=== PATIENT | female | born 1995 | race Caucasian/White ===

== ENCOUNTER → 2016-12-26 | Outpatient (CLI) | payer OTHER | END | disposition home or self-care (01) | LOC: C.LABSPEC 17:51 | PROVIDERS: ATTEND Family Medicine | DX: R39.15 Urgency of urination (principal) ==

== ENCOUNTER → 2017-06-06 | Outpatient (CLI) | payer OTHER ==
--- NOTE | 2017-06-14 06:19 | CODING QUERY NO DIAGNOSIS ---
TREATMENT RENDERED WITHOUT A DIAGNOSIS To promote full compliance with coding requirements relating to patient care, physician participation is requested in all cases of remote coders uncertainty. Please assist us with providing a diagnosis/symptom for the test(s) below: A diagnosis/symptom was not documented on your Order. A valid diagnosis/symptom is required to bill all insurances. Please remember that we are unable to code a diagnosis of rule out, probable, possible, questionable, or suspected. Tests that require a diagnosis: DOS 06/06 * Urine Culture DIAGNOSIS: Provider Signature: Date: Thank you Linsey Harrison Health Information Management Once completed, please kindly fax back to [phone] For questions please call [phone]
== END | disposition home or self-care (01) ==
LOC: C.LABSPEC 13:33
PROVIDERS: ATTEND Family Medicine
DX: Z01.89 Encounter for other specified special examinations (principal)

== ENCOUNTER → 2017-06-11 | Outpatient (CLI) | payer OTHER ==
[2017-06-11 14:26] LABS: BASO % 0.4 %; BASO ABS # 0.02 K/uL (0-0.2); COMPLETE YES; EOS % 1.8 %; HEMATOCRIT 40.9 % (37-47); IG% 0.2 %; LYMPH % 46.1 %; LYMPH ABS # 2.55 K/uL (1.2-3.4); MEAN CELL VOLUME 86.3 fL (80-100); MEAN CORPUSCULAR HEMOGLOBIN 28.5 pg (25-34); MEAN PLATELET VOLUME 10.6 fL (7.4-10.4); MONO % 4.7 %; NEUT % 46.8 %; PLATELET COUNT 220 K/uL (130-400); RED BLOOD COUNT 4.74 M/uL (4.2-5.4); WHITE BLOOD COUNT 5.53 K/uL (4.8-10.8)
[2017-06-11 14:32] LABS: ALT/SGPT 27 U/L (12-78); BLOOD UREA NITROGEN 8 mg/dl (7-18); BUN/CREATININE RATIO 10.8 (10-20); CALCIUM 8.6 mg/dl (8.5-10.1); CARBON DIOXIDE 28 mmol/L (21-32); CHLORIDE 110 mmol/L (98-107); CHOLESTEROL 118 mg/dl (0-200); CHOLESTEROL/HDL RATIO 2.3; CREATININE 0.72 mg/dl (0.60-1.20); GLUCOSE 100 mg/dl (70-99); HDL CHOLESTEROL 52 mg/dl; POTASSIUM 3.8 mmol/L (3.5-5.1); SODIUM 143 mmol/L (136-145)
[2017-06-11 14:35] LABS: ALB/GLOB RATIO 1.4 (0.9-2); ALKALINE PHOSPHATASE 54 U/L (45-117); AST/SGOT 16 U/L (15-37); LDL CHOLESTEROL CALCULATED 56 mg/dl; TRIGLYCERIDES 48 mg/dl (0-150); VERY LOW DENSITY LIPOPROT CALC 10 mg/dl
== END | disposition home or self-care (01) ==
LOC: C.LABSPEC 13:20
PROVIDERS: ATTEND Family Medicine
DX: Z00.00 Encounter for general adult medical examination without abnormal findings (principal)

== ENCOUNTER 2023-08-21 09:50 | Inpatient (IN) ==
[2023-08-21] MEDS ORDERED: OXYTOCIN 30 UNITS/NSS 30 UNITS/500 ML BAG IV PRN (10:40)
[2023-08-21] MEDS ORDERED: LIDOCAINE 1% LOCAL 20 ML VIAL INFIL PRN (10:40)
--- NOTE | 2023-08-21 10:51 | History & Physical Report ---
Date of Service August 21, 2023 History of Present Illness Chief Complaint: high blood pressure Primary Care Provider: Bogdan Erwin MD 28 F [id number] at 38.5 weeks presents to L&D with high blood pressure and prote inuria in the office. GBS is negative. 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 Beliefs That Will Affect Care: None marital status: Single Current Living Situation: Significant Other current occupational status: employed Feels Safe at Home: Yes Safety Concerns: Feels Safe At This Time Assistive Devices: None 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 Review of Systems All systems reviewed & are unremarkable except as noted in HPI & below Physical Exam Constitutional: WD/WN, vitals as above Eyes: PERRL, conjunctivae normal, anicteric sclerae Respiratory: normal respiratory effort, lungs clear to auscultation Cardiovascular: RRR, no murmur, no edema Gastrointestinal (Abdomen): Inspection/Auscultation: abdomen normal to inspection Musculoskeletal: Extremities: extremities normal to inspection Skin: no rashes, warm and dry Neurologic: patellar DTR's 2+ bilat, sensation intact Psychiatric: A+Ox3, euthymic affect Genitourinary: no vaginal lesions, no adnexal mass OB Exam Abdomen: + fundal height and + vertex Manual OB Exam: + cervical dilation fingertip, + cervical effacement 50% and + station high OB Exam Monitor Tracing: + external FHT monitor used, + external uterine monitor used, + category I and + normal FHT variability Cervix posterior/firm Will start Cervidil for cervical ripening Results & Data Vital Signs (Past 12 Hours) Vital Signs Temp Pulse Resp BP 08/21/23 10:12 86 128/83 08/21/23 10:12 36.9 C 18 Code Status & VTE Plan VTE Prophylaxis Plan VTE Prophylaxis will be ordered: No
[2023-08-21 11:01] LABS: Hematocrit (blood only) 34.8 % (37.0-47.0); Hemoglobin 11.5 g/dl (12.0-16.0); Mean Corpuscular Volume 84.9 fL (80.0-100.0); Mean Platelet Volume 12.2 fL (9.4-12.4); Platelet Count 159 K/uL (130-400); RDW Coefficient of Variation 16.1 % (11.5-14.5); RDW Standard Deviation 49.3 fL (36.4-46.3); White Blood Count 6.55 K/ul (4.8-10.8)
[2023-08-21 11:21] LABS: Albumin Globulin Ratio 1.2 (0.9-2); Albumin Level 3.1 gm/dl (3.4-5.0); BUN Creatinine Ratio 12.9 (10-20); Bilirubin,Total 0.2 mg/dl (0.2-1.0); Calcium 8.6 mg/dl (8.6-10.3); Est GFR (African American) 135.7 ml/min; Est GFR (Non-African American) 117.1 ml/min; Globulin 2.5 gm/dl (2.5-4.0); Potassium 4.1 mmol/L (3.5-5.1); Total Protein 5.6 gm/dl (6.0-8.3); Uric Acid 7.3 mg/dl (2.6-7.2)
[2023-08-21 11:48] LABS: Creatinine Urine Random 195.4 mg/dl; Protein Creatinine Ratio Urine 3.9 (0-0.2); Total Protein Urine Random 756.2 mg/dl (0-11.9)
[2023-08-21] MEDS ORDERED: DINOPROSTONE 10 MG INSERT PV ONE (11:52)
--- OUTSIDE RECORDS SUMMARY | 2023-08-21 13:03 | External Medical Summary | Summary of Care ---
Author Name Unknown Organization [facility] Address [address] [place] [address] Phone [phone] Care Team Providers Care Chief Investigator Name Role Phone Unavailable Primary Care Provider Unavailabl e Reason for Visit * Reason Comments Return Visit Encounter Details Date Type Department Care Team (Latest Contact Info) Description 08/20/2023 11:30 AM EST Office Visit Gynecology[facility]stetri [facility] [address] [place] [address] Kirstie Aden PA-C [address] [place] [id number] Supervision of high risk in third trimester*; Pyelectasis of fetus on ultrasound; History of loop electrosurgical excision procedure (LEEP) of cervix affecting , antepartum; Family history of seizure disorder; STD (sexually transmitted disease) complicating , antepartum; History of molar ; Elevated BP without diagnosis of hypertension Allergies Active Allergy Reactions Criticality Noted Date Comments Amoxicillin Rash 04/22/2008 Amoxil documented as of this encounter (statuses as of 08/20/2023) Medications Medication Sig Dispensed Refills Start Date End Date Status Breast PumpIndications:Breas t feeding status of mother Double electric pump, ANDREW 08/30/23, Z39.1 1 Each 0 08/15/2023 Active documented as of this encounter (statuses as of 08/20/2023) Active Problems Problem Noted Date Diagnosed Date Pyelectasis of fetus on ultrasound 03/2023 Last Assessment & Plan: Left UTD persists. Please notify pediatrics at delivery. , supervision, high-risk 02/01/2023 History of loop electrosurgi louie excision procedure (LEEP) of cervix affecting , antepartum 01/31/2023 Overview: LEEP done 2019 Last Assessment & Plan: 1. Discussed that the history of a single Loop Electrosurgical Excision Procedure has NOT been shown to be associated with increased risk for incompetent cervix or delivery. We do NOT recommend baseline transvaginal cervical length measurements for patients with this history. Family history of seizure disorder 01/31/2023 Overview: Patient reports FOB has epilepsy, as does his brother Genetics referral: patient and partner accept and referral placed NIPT: OB provider to order Last Assessment & Plan: Low risk NIPT and msAFP appreciated. STD (sexually transmitted di sease) complicating , antepartum 01/31/2023 Overview: Positive for chlamydia and gonorrhea at first Ob visit 01/15/2023 Patient treated 01/16/2023 Neg GARRETT 02/15/23; neg at 36 wks Last Assessment & Plan: Partner has not yet been treated Uninsured Partner referred to Family Planning for free STD testing and treatment History of molar 01/16/2023 Overview: Hx molar , didn't follow hcg to zero. Became during surveillance' Send placenta at time of delivery Last Assessment & Plan: No evidence of co-existing molar gestation at this time. Reviewed with patient that surveillance for gestational trophoblastic disease is not possible during using B-hcg, so will need follow-up . Migraine variant 02/22/2021 Depression with anxiety 07/01/2020 Estimated Date of Delivery Comme nts Yes 08/30/2023 Based on last me nstrual period of 11/23/2022 (Exact Date) documented as of this encounter (statuses as of 08/20/2023) Resolved Problems Problem Noted Date Diagnosed Date Resolved Date Blighted ovum 07/16/2022 05/10/2023 IUD check up 04/13/2017 07/01/2020 Adolescent Acne 01/03/2008 07/01/2020 documented as of this encounter (statuses as of 08/20/2023) Immunizations Name Administration Dates Next Due TDAP (age 10 and older)(Boostrix) 06/15/2023, documented as of this encounter Social History Tobacco Use Types Packs/Day Years Used Date Smoking Tobacco: Never Smokeless Tobacco: Never Alcohol Use Standard Drinks/Week Comments Not Currently 0 (1 standard drink = 0.6 oz pur e alcohol) occasional PHQ-2 Answer Date Recorded PHQ Adult Total Score 0 07/10/2022 Hunger Vital Sign Answer Date Recorded Within the past 12 months, y ou worried that your food would run out before you got the money to buy more. Never true 01/16/20 Within the past 12 months, t he food you bought just didn't last and you didn't have money to get more. Never true 01/15/2023 [place] Depression Scale Answer Date Recorded [place] Depression Scale Total 3 07/27/2023 The thought of harming myself has occurred to me . Never 07/27/2023 Estimated Date of Delivery Comme nts Yes 08/30/2023 Based on last me nstrual period of 11/23/2022 (Exact Date) Sex and Gender Information Value Date Recorded Sex Assigned at Female 07/01/2021 1:43 PM EDT Gender Identity Female 07/01/2021 1:43 PM EDT Sexual Orientation Straight 07/01/2021 1: 43 PM EDT Job Start Date Occupation Industry Not on file Not on file Not on file documented as of this encounter Last Filed Vital Signs Vital Sign Reading Time Taken Comments Blood Pressure 136/80 08/20/2023 11:34 AM EST Pulse - - Temperature - - Respiratory Rate - - Oxygen Saturation - - Inhaled Oxygen Concentration - - Weight 62.7 kg (138 lb 3.2 oz) 08/20/2023 11:25 AM EST Height 152.4 cm (5') 08/20/2023 11:25 AM EST Body Mass Index 26.99 08/20/2023 11:25 AM EST documented in this encounter Progress Notes * Kirstie Aden PA-C - 08/20/2023 11:36 AM EST 38w4d Denies concerns. Denies bleeding, contractions, lof. Baby is active. Ultrasound completed for position check -- confirmed cephalic. BP elevated with initial check 140/80, improved with repeat 136/80. First elevation in . Pt denies h/a, RUQ pain, cp, SOB, epigastric pain. 3+ proteins by site dip. PEC labs ordered. Pre-eclampsia precautions reviewed: any headache not relieved by Tylenol or rest, RUQ pain, epigastric pain, chest pain, SOB or vision changes need to go to hospital. RTC in 1 day JUAN/BP. If second elevation will rule in for GHTN and need delivery. Kirstie Aden PA-C * Sneha Hearn LPN - 08/20/2023 11:33 AM EST 38w4d Pt denies any concerns. documented in this encounter Plan of Treatment Upcoming Encounters Date Type Department Care Team (Late st Contact Info) Description 08/20/2023 12:30 PM EST Laboratory [facility], [facility] [address] [place] [phone] SevillaKulwant munoz [facility] [address] [place] [address] Arrived 08/21/2023 9:15 AM EST Office Visit Gynecology/Obstetrics [facility] [address] [place] [address] Clary Us CRNP [address] [place] [address] 08/28/2023 1:30 PM EST Office Visit Gynecology/Obstetrics Dae Sevilla [address] [place] [address] Clary Us CRNP [address] [place] [address] Pending Results Name Type Priority Associated Diagnoses Date /Time US PREG LIMITED 1 OR MORE FETUSES Medical Imaging Routine Supervision of high risk in third trimester 08/20/2023 11:59 AM EST PROTEIN/ CREATININE RATIO, URINE Lab Routine Supervision of high risk in third trimester Elevated BP without diagnosis of hypertension 08/20/2023 11:56 AM EST COMPREHENSIVE METABOLIC PANEL Lab Routine Supervision of high risk in third trimester Elevated BP without diagnosis of hypertension 08/20/2023 12:03 PM EST Scheduled Orders Name Type Priority Associated Diagnoses Orde r Schedule US PREG LIMITED 1 OR MORE FETUSES Medical Imaging Routine Supervision of high risk in third trimester Expected: 08/20/2023, Expires: 09/19/2024 Health Maintenance Due Date Last Done Comments Hepatitis B (1 of 3 - 3-dose series) 1994 COVID-19 Vaccine (#1) 1994 Influenza Vaccine (FLU shot) (#1) 2023 Depression Screening 07/10/2023 07/10/2022 Pap Smear 01/15/2026 01/15/2023, 12/31, 06/19/2019, Additional history exists DTaP,Tdap,and Td Vaccines (3 - Td or Tdap) 06/15/2033 06/15/2023, 05/26/2019 GARDASIL-HPV IMMUNIZATION SERIES Aged Out No longer eligible based on patient's age to complete this topic MENINGOCOCCAL (MENACTRA/MENVEO) Aged Out No longer eligible based on patient's age to complete this topic Pneumococcal Vaccine: Pediatrics (0 to 5 Years) and At-Risk Patients (6 to 64 Years) Aged Out No longer eligible based on patient's age to complete this topic documented as of this encounter Medical Devices Not on filedocumented as of this encounter Procedures Procedure Name Priority Date/Time Associated Diagnosis Comments CBC Routine 08/20/2023 12:03 PM EST Supervision of high risk in third trimester Elevated BP without diagnosis of hypertension URINALYSIS, POINT OF CARE (ENTER/EDIT) Routine 08/20/2023 Elevated BP without diagnosis of hypertension documented in this encounter Results * CBC (08/20/2023 12:03 PM EST) WBC 7.59 4.00 - 10.80 K/uL 08/20/2023 12:17 PM EST [facility] RBC 4.44 3.85 - 5.15 M/uL 08/20/2023 12:17 PM EST [facility] HGB 12.3 12.0 - 15.3 g/dL 08/20/2023 12:17 PM EST [facility] HCT 38.1 36.0 - 45.2 % 08/20/2023 12:17 PM EST [facility] MCV 85.8 81.5 - 97.5 fL 08/20/2023 12:17 PM EST [facility] MCH 27.7 27.0 - 34.0 pg 08/20/2023 12:17 PM EST [facility] MCHC 32.3 32.0 - 36.0 g/dL 08/20/2023 12:17 PM EST [facility] RDW 16.2 11.5 - 15.5 % 08/20/2023 12:17 PM EST [facility] PLT 165 140 - 400 K/uL 08/20/2023 12:17 PM EST [facility] MPV 12.1 6.6 - 11.1 fL 08/20/2023 12:17 PM EST [facility] Blood Venous blood specimen / Unknown Venipuncture / Unknown 08/20/2023 12:03 PM EST 08/20/2023 12:03 PM EST Kirstie Aden PA-C LAB BLOOD ORDERABLES [facility] [address] [facility] [place] [address] * URINALYSIS, POINT OF CARE (ENTER/EDIT) (08/20/2023) Color, Urine Yellow Yellow or Light Yellow Clarity, Urine Clear Clear Glucose, Urine Negative Negative mg/dL Bilirubin, Urine Negative Negative Ketone, Urine Negative Negative mg/dL Specific [place], Urine 1.030 1.003 - 1.030 Blood, Urine Trace-intact Negative pH, Urine 6.0 5.0 - 7.5 units Protein, Urine >=300 Negative mg/dL Urobilinogen, Urine 0.2 0.2 - 1.0 mg/dL Nitrite, Urine Negative Negative Esterase, Urine Negative Negative Urine 08/20/2023 Kirstie Aden PA-C LAB POINT OF CARE [facility] ENTER/EDIT ORDERABLES documented in this encounter Visit Diagnoses Diagnosis Supervision of high risk in third trimester- Primary Unspecified high-risk Pyelectasis of fetus on ultrasound Abnormal findings on screening History of loop electrosurgical excision procedure (LEEP) of cervix affecting , antepartum Family history of seizure disorder Family history of other neurological diseases STD (sexually transmitted disease) complicating , antepartum Other antepartum maternal venereal disease History of molar Elevated BP without diagnosis of hypertension documented in this encounter Advance Directives Latest Code Status on File Code Status Date Activated Date Inactivated Comments Full Code 07/18/2022 11:53 AM 07/18/2022 5:18 PM Th is order reflects the patients wishes and were consensually agreed upon. Question Answer Comments Discussion of Advance Directives occurred with: Patient
--- OUTSIDE RECORDS SUMMARY | 2023-08-21 13:03 | External Medical Summary ---
Author Name Unknown Address Unknown Organization [id number] [place] [address] Laboratory Report Ordering Provider Test Date Status AMARA TRIPP 08/20/2023 12:03:20 Final Observation Date Value Abnormality Reference (Units ) Status WBC, Total 08/20/2023 12:03:20 7.59 4.00-10.8 0 (K/uL) Final RBC 08/20/2023 12:03:20 4.44 3.85-5.15 (M/uL) Final Hemoglobin 08/20/2023 12:03:20 12.3 12.0-15.3 (g/dL) Final HCT 08/20/2023 12:03:20 38.1 36.0-45.2 (%) Final MCV 08/20/2023 12:03:20 85.8 81.5-97.5 (fL) Final MCH 08/20/2023 12:03:20 27.7 27.0-34.0 (pg) Final MCHC 08/20/2023 12:03:20 32.3 32.0-36.0 (g/dL) Final RDW 08/20/2023 12:03:20 16.2 11.5-15.5 (%) Final Platelets 08/20/2023 12:03:20 165 140-400 (K /uL) Final MPV 08/20/2023 12:03:20 12.1 6.6-11.1 ( fL) Final Performing Location [facility] - [address] [place] [address]
--- OUTSIDE RECORDS SUMMARY | 2023-08-21 13:03 | External Medical Summary ---
Author Name Unknown Address Unknown Organization [id number] - [address] [place] [address] Laboratory Report Ordering Provider Test Date Status AMARA TRIPP 08/20/2023 12:03:20 Final Observation Date Value Abnormality Reference (Units ) Status BUN 08/20/2023 12:03:20 12 6-20 (mg/dL) Final Creatinine 08/20/2023 12:03:20 0.9 0.5-1.0 (mg/dL) Final Glomerular filtration rate/1.73 sq M.predicted [Volume Rate/Area] in Serum, Plasma or Blood by Creatinine-based formula (CKD-EPI) 08/20/2023 12:03:20 90 >=60 (mL/min) Final eGFR is calculated based on the CKD-EPI 2020 equation SODIUM 08/20/2023 12:03:20 138 135-146 (m mol/L) Final Potassium 08/20/2023 12:03:20 4.7 3.5-5.1 (m mol/L) Final Cl 08/20/2023 12:03:20 104 98-107 (mm ol/L) Final CO2 08/20/2023 12:03:20 23 22-32 (mmo l/L) Final Anion gap 08/20/2023 12:03:20 11 7-15 (mmol /L) Final Glucose 08/20/2023 12:03:20 80 70-120 (mg /dL) Final Albumin 08/20/2023 12:03:20 3.5 Below low normal 3.8 -5.0 (g/dL) Final AST (Aspartate aminotransferase) 08/20/2023 12:03:20 25 10-35 (U/L) Fin al Alk Phos 08/20/2023 12:03:20 208 Above high normal 35 -130 (U/L) Final Bilirubin, Total 08/20/2023 12:03:20 0.2 <=1 .2 (mg/dL) Final Calcium 08/20/2023 12:03:20 9.3 8.4-10.2 ( mg/dL) Final Protein 08/20/2023 12:03:20 5.9 Below low normal 6.0 -8.3 (g/dL) Final ALT (Alanine aminotransferase) 08/20/2023 12:03:20 17 10-35 (U/L) [place] Performing Location [facility] [facility] [address]
--- OUTSIDE RECORDS SUMMARY | 2023-08-21 13:04 | External Medical Summary | Summary of Care ---
Author Name Unknown Organization [facility] Address [address] [facility] [place] [address] Phone [phone] Care Team Providers Care Therapist'S Assistant Name Role Phone Unavailable Primary Care Provider Unavailabl e Reason for Visit * Reason Comments Return Visit Encounter Details Date Type Department Care Team Description 06/15/2023 Office Visit Gynecology/Obstetric alexander Sevilla [address] [place] [address] Brie Teresa CRNP [address] [place] [address] Supervision of high risk in third trimester*; Pyelectasis of fetus on ultrasound; History of loop electrosurgical excision procedure (LEEP) of cervix affecting , antepartum; Family history of seizure disorder; STD (sexually transmitted disease) complicating , antepartum; History of molar ; Need for prophylactic vaccination with combined bpoxfjizcc-jbddmzi-uyhpr ssis (DTP) vaccine Allergies Active Allergy Reactions Severity Noted Date Comments Amoxicillin Rash 04/22/2008 Amoxil documented as of this encounter (statuses as of 06/15/2023) Medications Medication Sig Dispensed Refills Start Date End Date Status Flintstones Complete 10 MG Oral Tablet Chewable Take by mouth. 0 06/15/2023 Discontinued(M edication List Clean Up) documented as of this encounter (statuses as of 06/15/2023) Active Problems Problem Noted Date Pyelectasis of fetus on ultraso und 04/05/2023 Last Assessment & Plan: CONSIDERATIONS: Reviewed that urinary tract dilation is found in approximately 1% of pregnancies and for the woman who is under 35 years of age at the time of delivery, this may be considered a normal variant of and is not associated with an increased risk for aneuploidy. urinary tract dilation can be physiologic 50 to 70 percent of the time. The other common causes of urinary tract dilation are some type of urinary obstruction (10-30%) and bladder reflux (10-40%). Of note, Rosita had chronic UTI with reflux as a child. RECOMMENDATIONS: We recommend follow up Maternal Medicine ultrasound at 32-36 weeks gestation. We recommend alerting the graphic manager providing care of this finding if it persists. , supervision, high-risk 2022 History of loop electrosurgi louie excision procedure [...] this history. Family history of seizure disorder 01/31 Overview: Patient reports FOB has epilepsy, as does his brother Genetics referral: patient and partner accept and referral placed NIPT: OB provider to order Last Assessment & Plan: Low risk NIPT and msAFP appreciated. STD (sexually transmitted disease) compl icating , antepartum 01/31/2023 Overview: Positive for chlamydia and gonorrhea at first Ob visit 01/15/2023 Patient treated 01/16/2023 Advised partner needs to be treated Abstain from intercourse until after partner is treated. Neg GARRETT 02/15/23; repeat in 3rd trimester Last Assessment & Plan: Partner has not [...] as of this encounter (statuses as of 06/15/2023) Resolved Problems Problem Noted Date Resolved Date Blighted ovum 07/16/2022 05/10/2023 IUD check up 04/13/2017 07/01/2020 Adolescent Acne 01/03/2008 07/01/2020 documented as of this encounter (statuses as of 06/15/2023) Immunizations Name Administration Dates Next Due TDAP (age 10 and older)(Boostrix) 06/15/2023, documented as of this encounter Social History Tobacco Use Types Packs/Day Years Used Date Smoking Tobacco: Never Smokeless Tobacco: Never Alcohol Use Standard Drinks/Week Comments Not Currently 0 (1 standard drink = 0.6 oz pur e alcohol) occasional Food Insecurity Answer Date Recorded Within the past 12 months, y ou worried that your food would run out before you got money to buy more. Never true 01/15/2023 Within the past 12 months, t he food you bought just didn't last and you didn't have money to get more. Never true 01/15/2023 Estimated Date of Delivery Comme nts Yes 08/30/2023 Based on last me nstrual period of 11/23/2022 (Exact Date) Sex Assigned at Date Recorded Female 07/01/2021 1:43 PM E DT Job Start Date Occupation Industry Not on file Not on file Not on file documented as of this encounter Last Filed Vital Signs Vital Sign Reading Time Taken Comments Blood Pressure 100/62 06/15/2023 9:46 AM EDT Pulse - - Temperature - - Respiratory Rate - - Oxygen Saturation - - Inhaled Oxygen Concentration - - Weight 57.2 kg (126 lb) 06/15/2023 9:46 AM EDT Height 152.4 cm (5') 06/15/2023 9:46 AM EDT Body Mass Index 24.61 06/15/2023 9:46 AM EDT documented in this encounter Progress Notes * MC Hall - 06/15/2023 10:01 AM EDT Having BH ctx - knows she is not drinking enough water, has trouble doing so at work due to her boss. She has given him a letter with work restrictions and . Advised that it is the law to accommodate workers. Pt told to call office if ctx persist despite hydration, rest, Tylenol. Denies bleeding, leaking. + movement. Reviewed [facility], call if <10 in 2 hrs during active periods. Discussed CBE classes. Accepts Tdap; recommended and declined flu shot. Not currently taking PNV, declines prescription. Aware that taking them is recommended. 2 week return MC Elizodno * Rebekah Marie LPN - 06/15/2023 9:48 AM EDT 29w1d Getting more dagmar pereira Boss won't let her to take breaks or keep water close working 10 hrs documented in this encounter Nursing Notes * Rebekah Marie LPN - 06/15/2023 10:10 AM EDT Patient here for tap injection. Patient doing well no complaints. Injection given IM as ordered. Patient tolerated well. Patient to follow up as directed. Patient instructed to call if any complications. Patient verbalized understanding of instructions given and her follow up appt for 2 weeks Injection site: Left Deltoid Medication Source: Dispensed stock medication documented in this encounter Plan of Treatment Upcoming Encounters Date Type Specialty Care Team Description 06/28/2023 Office Visit Gynecology Obstetrics Clray Us CRNP [address] [place] [address] 06/28/2023 Imaging Radiology 07/12/2023 Office Visit Gynecology Obstetrics Clary Us CRNP [address] [place] [address] Health Maintenance Due Date Last Done Comments Hepatitis B (1 of 3 - 3-dose series) 1994 COVID-19 Vaccine (#1) 1994 Influenza Vaccine (FLU shot) (#1) 2023 Depression Screening 07/10/2023 07/10/2022 Pap Smear 01/15/2026 01/15/2023, 12/31, 06/19/2019, Additional history exists DTaP,Tdap,and Td Vaccines (3 - Td or Tdap) 06/15/2033 06/15/2023, 05/26/2019 Hepatitis C Screening Completed 01/15/2023 , 01/15/2023, 01/15/2023, Additional history exists GARDASIL-HPV IMMUNIZATION SERIES Aged Out No longer [...] Not on filedocumented as of this encounter Visit Diagnoses Diagnosis Supervision of high risk in third trimester- Primary Unspecified high-risk Pyelectasis of fetus on ultrasound Abnormal findings on screening History of loop electrosurgical excision procedure (LEEP) of cervix affecting , antepartum Family history of seizure disorder Family history of other neurological diseases STD (sexually transmitted disease) complicating , antepartum Other antepartum maternal venereal disease History of molar Need for prophylactic vaccination with combined bzuvrzcfes-snzviwe-spctewpxr (DTP) vaccine documented in this encounter Advance Directives Latest Code Status on File Code Status Date Activated Date Inactivated Comments Full Code 07/18/2022 11:53 AM 07/18/2022 5:18 PM Th is order reflects the patients wishes and were consensually agreed upon. Question Answer Comments Discussion of Advance Directives occurred with: Patient
--- OUTSIDE RECORDS SUMMARY | 2023-08-21 13:04 | External Medical Summary ---
Author Name Unknown Address Unknown Organization [id number]:[facility] [place] [address] [facility] [address] Laboratory Report Ordering Provider Test Date Status KIM ELI 06/11/2023 09:50:34 Final Observation Date Value Abnormality Reference (Units ) Status Treponema pallidum Ab [Presence] in Serum by Immunoassay 06/11/2023 09:50:34 Nonreactive Nonreactive Final No serologic evidence of syp hilis. No additional testing clinicially indicated at this time. Consider repeat testing in 2-4 weeks if acute or primary syphilis is suspected. Performing Location [facility] [place] [facility] [address] [facility] [address]
--- OUTSIDE RECORDS SUMMARY | 2023-08-21 13:04 | External Medical Summary ---
Author Name Unknown Address Unknown Organization [id number]:[facility] [place] [facility] [address] [facility] [address] Laboratory Report Ordering Provider Test Date Status KIM ELI 08/02/2023 13:30:51 Final Observation Date Value Abnormality Reference (Units ) Status Streptococcus agalactiae DNA [Presence] in Specimen by RADHA with probe detection 08/02/2023 13:30:51 Negative Negative Final No Group B Streptococcus det ected by culture-enhanced PCR (amplified probe).
The collection of vaginal/rectal swab specimen combinations (FDA approved specimen type) is optimal for the detection of Group B Streptococcus. Single source collection (vaginal only or rectal only) or alternate specimen sources may lead to false negative results. Performing Location [facility] [place] [facility] [address] [facility] [address]
--- OUTSIDE RECORDS SUMMARY | 2023-08-21 13:04 | External Medical Summary ---
Author Name Unknown Address Unknown Organization [id number]:[facility] [place] - [facility] [address] [address] Laboratory Report Ordering Provider Test Date Status KIM ELI 06/11/2023 09:50:34 Final Observation Date Value Abnormality Reference (Units ) Status Creatinine 06/11/2023 09:50:34 0.6 0.5-1.0 (mg/dL) Final Glomerular filtration rate/1.73 sq M.predicted [Volume Rate/Area] in Serum, Plasma or Blood by Creatinine-based formula (CKD-EPI) 06/11/2023 09:50:34 >90 >=60 (mL/min) Final eGFR is calculated based on the CKD-EPI 2020 equation Performing Location [facility] [place] - [facility] [address] [address]
--- OUTSIDE RECORDS SUMMARY | 2023-08-21 13:04 | External Medical Summary | Summary of Care ---
Author Name Unknown Organization [facility] Address [address] [address] Phone [phone] Care Team Providers Care Auto Adjudication Specialist Name Role Phone Unavailable Primary Care Provider Unavailabl e Reason for Visit * Reason Comments Return Visit Encounter Details Date Type Department Care Team ([facility] st Contact Info) Description 08/02/2023 1:30 PM EDT Office Visit Gynecology/Obstetri Dae Sevilla [address] [place] [address] Brie Teresa CRNP [address] [place] [address] Supervision of high risk in third trimester*; Pyelectasis of fetus on ultrasound; History of loop electrosurgical excision procedure (LEEP) of cervix affecting , antepartum; Family history of seizure disorder; STD (sexually transmitted disease) complicating , antepartum; History of molar Allergies Active Allergy Reactions Criticality Noted Date Comments Amoxicillin Rash 04/22/2008 Amoxil documented as of this encounter (statuses as of 08/02/2023) Medications No known medicationsdocumented as of this encounter (statuses as of 08/02/2023) Active Problems Problem Noted Date Diagnosed Date Pyelectasis of fetus on ultrasound 03/2023 Last Assessment & Plan: CONSIDERATIONS: Reviewed that [...] 32-36 weeks gestation. We recommend alerting the aluminum siding installer providing care of this finding if it persists. , supervision, high-risk 02/01/2023 History of loop [...] as of this encounter (statuses as of 08/02/2023) Resolved Problems Problem Noted Date Diagnosed Date Resolved Date Blighted ovum 07/16/2022 05/10/2023 IUD check up 04/13/2017 07/01/2020 Adolescent Acne 01/03/2008 07/01/2020 documented as of this encounter (statuses as of 08/02/2023) Immunizations Name Administration Dates Next Due TDAP [...] money to buy more. Never true 01/16/20 23 Within the past 12 months, t he food you bought just didn't last and you didn't have money to get more. Never true 01/15/2023 [place] Depression Scale Answer Date Recorded [place] Depression Scale Total 3 07/27/2023 The thought [...] Sign Reading Time Taken Comments Blood Pressure 108/66 08/02/2023 1:21 PM EDT Pulse - - Temperature - - Respiratory Rate - - Oxygen Saturation - - Inhaled Oxygen Concentration - - Weight 62.6 kg (138 lb) 08/02/2023 1:21 PM EDT Height - - Body Mass Index 26.95 07/27/2023 11:20 AM EDT documented in this encounter Progress Notes * Brie Teresa CRNP - 08/02/2023 1:21 PM EDT 36w0d Doing well, reports good movement. No regular ctx or leaking/bleeding. GBS and repeat Gc/Ct testing today. Interested in POPs , then control patch. Has a growth scan with MFM after today's visit. Return in 1 week. Data Processing Mechanic Documentation Provider requested summer analyst. Name of summer analyst: MC Cabrera LPN * Samanta Odonnell LPN - 08/02/2023 1:19 PM EDT 36w0d Denies vaginal bleeding/rom + movement documented in this encounter Plan of Treatment Upcoming Encounters Date Type Department Care Team (Late st Contact Info) Description 08/02/2023 2:30 PM EDT Imaging Maternal Medicine Imaging, [place] [phone] 08/02/2023 2:30 PM EDT Office Visit [facility] [place] [address] Trice Ruiz, DO [address] [facility] [place] [address] 08/08/2023 11:30 AM EST Office Visit Gynecology/Obstetrics [facility] [address] [place] [address] Brie Teresa CRNP [address] [place] [address] 08/15/2023 11:30 AM EST Office Visit Gynecology/Obstetrics [facility] [address] [place] [address] Brie Teresa CRNP [address] [place] [address] 08/20/2023 11:30 AM EST Office Visit Gynecology/Obstetrics [facility] [address] [place] [address] Kirstie Aden PA-C [address] [place] [address] 08/28/2023 1:30 PM EST Office Visit Gynecology/Obstetrics [facility] [address] [place] [address] Clary Us CRNP [address] [place] [address] Pending Results Name Type Priority Associated Diagnoses Date /Time GROUP B STREP CULTURE/PCR Lab Routine Supervision of high risk in third trimester 08/02/2023 1:30 PM EDT CHLAMYDIA TRACHOMATIS AND NEISSERIA GONORRHOEAE, AMPLIFIED PROBE Lab Routine STD (sexually transmitted disease) complicating , antepartum 08/02/2023 1:30 PM EDT Health Maintenance Due Date Last Done Comments Hepatitis B (1 of 3 - 3-dose series) 1994 COVID-19 Vaccine (#1) 1994 Influenza Vaccine (FLU shot) (#1) 2023 Depression Screening 07/10/2023 07/10/2022 Pap Smear 01/15/2026 01/15/2023, 04/2 10/2020, 06/19/2019, Additional history exists DTaP,Tdap,and Td Vaccines [...] antepartum maternal venereal disease History of molar documented in this encounter Advance Directives Latest Code Status on File Code Status Date Activated Date Inactivated Comments Full Code 07/18/2022 11:53 AM 07/18/2022 5:18 PM Th is order reflects the patients wishes and were consensually agreed upon. Question Answer Comments Discussion of Advance Directives occurred with: Patient
--- OUTSIDE RECORDS SUMMARY | 2023-08-21 13:04 | External Medical Summary ---
Author Name Unknown Address Unknown Organization [id number]:LAB[facility]ATORY [facility] [place] [address] - [address] [place] [address] Laboratory Report Ordering Provider Test Date Status KIM ELI 06/11/2023 09:50:34 Final Observation Date Value Abnormality Reference (Units ) Status WBC, Total 06/11/2023 09:50:34 6.74 4.00-10.8 0 (K/uL) Final RBC 06/11/2023 09:50:34 4.14 3.85-5.15 (M/uL) Final Hemoglobin 06/11/2023 09:50:34 11.9 Below low normal 12 .0-15.3 (g/dL) Final Anemia reflex testing trigge rs on a HGB < 12.0 for Females and HGB < 13.0 for Males in accordance with the WHO Anemia Guidelines
Anemia reflex testing triggers on a HGB < 12.0 for Females and HGB < 13.0 for Males in accordance with the WHO Anemia Guidelines HCT 06/11/2023 09:50:34 35.8 Below low normal 36. 0-45.2 (%) Final MCV 06/11/2023 09:50:34 86.5 81.5-97.5 (fL) Final MCH 06/11/2023 09:50:34 28.7 27.0-34.0 (pg) Final MCHC 06/11/2023 09:50:34 33.2 32.0-36.0 (g/dL) Final RDW 06/11/2023 09:50:34 13.1 11.5-15.5 (%) Final Platelets 06/11/2023 09:50:34 189 140-400 (K /uL) Final MPV 06/11/2023 09:50:34 11.3 6.6-11.1 ( fL) Final Performing Location [facility]ORY [facility] [place] [address] - [address] [place] [address]
--- OUTSIDE RECORDS SUMMARY | 2023-08-21 13:04 | External Medical Summary | Summary of Care ---
Author Name Unknown Organization [facility] Address [address] [place] [address] Phone [phone] Care Team Providers Care Corn Cutter Name Role Phone Unavailable Primary Care Provider Unavailabl e Reason for Visit * Reason Onset Date Comments Test Results 06/27/2023 Encounter Details Date Type Department Care Team Description 06/27/2023 Telephone Gynecology/Obstetrics [facility] [address] [place] [address] Brie Teresa CRNP [address] [place] [address] Test Results Allergies Active Allergy Reactions Severity Noted Date Comments Amoxicillin Rash 04/22/2008 Amoxil documented as of this encounter (statuses as of 06/27/2023) Medications No known medicationsdocumented as of this encounter (statuses as of 06/27/2023) Active Problems Problem Noted Date Pyelectasis of [...] 32-36 weeks gestation. We recommend alerting the oil field pipeline supervisor providing care of this finding if it [...] as of this encounter (statuses as of 06/27/2023) Resolved Problems Problem Noted Date Resolved Date Blighted ovum 07/16/2022 05/10/2023 IUD check up 04/13/2017 07/01/2020 Adolescent Acne 01/03/2008 07/01/2020 documented as of this encounter (statuses as of 06/27/2023) Immunizations Name Administration Dates Next Due TDAP [...] on file documented as of this encounter Miscellaneous Notes * Telephone Encounter - Rebekah Marie LPN - 06/27/2023 9:30 AM EDT Spoke with pt she verbalized understanding * Telephone Encounter - MC Hall - 06/27/2023 9:03 AM EDT Please call pt with unread MyG: Your labs show very mild anemia (hemoglobin level should be 12 or higher, yours is 11.9). Please make sure that your vitamin contains iron. You can also increase iron in your diet with dark leafy greens, red meat, and iron-fortified cereal- Frosted Mini Wheats is one with a good amount. Your 1 hour glucose test was normal. Please contact my office if you have any questions. documented in this encounter Plan of Treatment Upcoming Encounters Date Type Specialty Care Team Description 06/28/2023 Office Visit Gynecology Obstetrics Clary Us CRNP [address] [place] [address] 06/28/2023 Imaging Radiology 07/12/2023 Office Visit Gynecology Obstetrics Clary Us CRNP [address] [place] [address] Health Maintenance Due Date Last Done Comments Hepatitis B (1 of 3 - 3-dose series) 1994 COVID-19 Vaccine (#1) 1994 Influenza Vaccine (FLU shot) (#1) 2023 Depression Screening 07/10/2023 07/10/2022 Pap Smear 01/15/2026 01/15/2023, 04/10/2020, 06/19/2019, Additional history exists DTaP,Tdap,and Td Vaccines [...] Not on filedocumented as of this encounter Advance Directives Latest Code Status on File Code Status Date Activated Date Inactivated Comments Full Code 07/18/2022 11:53 AM 07/18/2022 5:18 PM Th is order reflects the patients wishes and were consensually agreed upon. Question Answer Comments Discussion of Advance Directives occurred with: Patient
--- OUTSIDE RECORDS SUMMARY | 2023-08-21 13:04 | External Medical Summary | Summary of Care ---
Author Name Unknown Organization [facility] Address [address] [place] [address] Phone [phone] Care Team Providers Care Obiee Architect Name Role Phone Unavailable Primary Care Provider Unavailabl e Reason for Visit * Reason Comments Return Visit Encounter Details Date Type Department Care Team ([facility] st Contact Info) Description 07/27/2023 11:45 AM EDT Office Visit Gynecology/Obstetri Dae Sevilla [address] [place] [address] Brie Teresa CRNP [address] [place] [address] Supervision of high risk in third trimester*; Pyelectasis of fetus on ultrasound; History of loop electrosurgical excision procedure (LEEP) of cervix affecting , antepartum; Family history of seizure disorder; STD (sexually transmitted disease) complicating , antepartum; History of molar Allergies Active Allergy Reactions Criticality Noted Date Comments Amoxicillin Rash 04/22/2008 Amoxil documented as of this encounter (statuses as of 07/27/2023) Medications No known medicationsdocumented as of this encounter (statuses as of 07/27/2023) Active Problems Problem Noted Date Diagnosed Date [...] 32-36 weeks gestation. We recommend alerting the library supervisor providing care of this finding if [...] as of this encounter (statuses as of 07/27/2023) Resolved Problems Problem Noted Date Diagnosed Date Resolved Date Blighted ovum 07/16/2022 05/10/2023 IUD check up 04/13/2017 07/01/2020 Adolescent Acne 01/03/2008 07/01/2020 documented as of this encounter (statuses as of 07/27/2023) Immunizations Name Administration Dates Next Due TDAP [...] money to get more. Never true 01/15/2023 [place] Depression Scale Answer Date Recorded [place] Depression Scale Total 3 07/27/2023 The thought [...] Sign Reading Time Taken Comments Blood Pressure 104/62 07/27/2023 11:20 AM EDT Pulse - - Temperature - - Respiratory Rate - - Oxygen Saturation - - Inhaled Oxygen Concentration - - Weight 62 kg (136 lb 9.6 oz) 07/27/2023 11:20 AM EDT Height 152.4 cm (5') 07/27/2023 11:20 AM EDT Body Mass Index 26.68 07/27/2023 11:20 AM EDT documented in this encounter Progress Notes * Brie Teresa CRNP - 07/27/2023 11:29 AM EDT 35w1d Baby moving well. No consistent/regular ctx or bleeding. Increase in physiologic discharge, discussed. Cephalic by my hands. S<D, has an MFM growth u/s scheduled for next week. GBS next visit, 1 week return. MC Elizondo * Samanta Odonnell LPN - 07/27/2023 11:25 AM EDT 35w1d Denies vaginal bleeding/rom + movement Increased discharge Noticing some contractions- 07/19 every 10 minutes for about 2 hours nothing consistent since then. documented in this encounter Plan of Treatment Upcoming Encounters Date Type Department Care Team (Late st Contact Info) Description 08/02/2023 1:30 PM EDT Office Visit Gynecology/Obstetrics Dae Sevilla [address] [place] [address] Brie Teresa CRNP [address] [place] [address] 08/02/2023 2:30 PM EDT Imaging Maternal Medicine Karen Smart [address] [place] [id number] 08/08/2023 11:30 AM EST Office Visit Gynecology/Obstetrics [facility] [address] [place] [address] Brie Teresa CRNP [address] [place] [address] 08/15/2023 11:30 AM EST Office Visit Gynecology/Obstetrics [facility] [address] [place] [address] Brie Teresa CRNP [address] [place] [address] 08/20/2023 11:30 AM EST Office Visit Gynecology/Obstetrics [facility] [address] [place] [address] Kirstie Aden PA-C [address] [place] [address] 08/28/2023 1:30 PM EST Office Visit Gynecology/Obstetrics [facility] [address] [place] [address] Clary Us CRNP [address] [place] [address] Health Maintenance Due Date Last Done Comments [...]
--- OUTSIDE RECORDS SUMMARY | 2023-08-21 13:04 | External Medical Summary | Summary of Care ---
Author Name Unknown Organization [facility] Address [address] [place] [address] Phone [phone] Care Team Providers Care Control Chemist Name Role Phone Unavailable Primary Care Provider Unavailabl e Reason for Visit * Reason Comments Return Visit Encounter Details Date Type Department Care Team ([facility] st Contact Info) Description 08/08/2023 11:30 AM EST Office Visit Gynecology/Obstetri [facility] [address] [place] [address] BackerBrie CRNP [address] [place] [address] Supervision of high risk in third trimester*; Pyelectasis of fetus on ultrasound; History of loop electrosurgical excision procedure (LEEP) of cervix affecting , antepartum; Family history of seizure disorder; STD (sexually transmitted disease) complicating , antepartum; History of molar ; Left axillary swelling Allergies Active Allergy Reactions Criticality Noted Date Comments Amoxicillin Rash 04/22/2008 Amoxil documented as of this encounter (statuses as of 08/08/2023) Medications No known medicationsdocumented as of this encounter (statuses as of 08/08/2023) Active Problems Problem Noted Date Diagnosed Date [...] as of this encounter (statuses as of 08/08/2023) Resolved Problems Problem Noted Date Diagnosed Date Resolved Date Blighted ovum 07/16/2022 05/10/2023 IUD check up 04/13/2017 07/01/2020 Adolescent Acne 01/03/2008 07/01/2020 documented as of this encounter (statuses as of 08/08/2023) Immunizations Name Administration Dates Next Due TDAP [...] money to get more. Never true 01/15/2023 [place] Depression Scale Answer Date Recorded [place] Depression Scale Total 3 07/27/2023 The thought [...] Sign Reading Time Taken Comments Blood Pressure 110/70 08/08/2023 11:27 AM EST Pulse - - Temperature - - Respiratory Rate - - Oxygen Saturation - - Inhaled Oxygen Concentration - - Weight 63.5 kg (140 lb) 08/08/2023 11:27 AM EST Height - - Body Mass Index 27.34 07/27/2023 11:20 AM EDT documented in this encounter Progress Notes * Brie Teresa CRNP - 08/08/2023 11:26 AM EST 36w6d Growth scan with MFM completed on 08/02. Plan for post simon follow up of left UTD. No regular ctx, leaking/bleeding. Good movement. Reports swelling around L armpit x2 days, feels tender. No fevers/chills, recent vaccinations, injury. +mild edema and enlarged lymph nodes, will get imaging. 1 week return [facility] Elizondo * Samanta Odonnell LPN - 08/08/2023 11:26 AM EST 36w6d Denies vaginal bleeding/rom + movement Having some contractions- nothing consistent Noticed swollen area around armpit documented in this encounter Plan of Treatment Upcoming Encounters Date Type Department Care Team (Late st Contact Info) Description 08/10/2023 2:30 PM EST Imaging Radiology [facility] [address] [facility] [place] [address] 08/10/2023 3:00 PM EST Imaging Radiology [facility] [address] [place] [address] 08/15/2023 11:30 AM EST [facility] Pr[address]av [address] [place] [address] Brie Teresa CRNP [address] [place] [address] 08/20/2023 11:30 AM EST Office Visit Gynecology/Obstetrics [facility] Pr[address] [place] [address] Kirstie Aden PA-C [address] [place] [address] 08/28/2023 1:30 PM EST Office Visit Gynecology/Obstetrics [facility] [address] [place] [address] Clary Us CRNP [address] [place] [address] Scheduled Orders Name Type Priority Associated Diagnoses Orde r Schedule US EXTREMITY AXILLA Medical Imaging Routine Left axillary swelling Expected: 08/08/2023 (Approximate), Expires: 09/07/2024 Health Maintenance Due Date Last Done Comments Hepatitis B (1 of 3 - 3-dose series) 1994 COVID-19 Vaccine (#1) 1994 Influenza Vaccine (FLU shot) (#1) 2023 Depression Screening 07/10/2023 07/10/2022 Pap Smear 01/15/2026 01/15/2023, 0410/2020, 06/19/2019, Additional history exists DTaP,Tdap,and Td Vaccines [...] antepartum maternal venereal disease History of molar Left axillary swelling documented in this encounter Advance Directives Latest Code Status on File Code Status Date Activated Date Inactivated Comments Full Code 07/18/2022 11:53 AM 07/18/2022 5:18 PM Th is order reflects the patients wishes and were consensually agreed upon. Question Answer Comments Discussion of Advance Directives occurred with: Patient
--- OUTSIDE RECORDS SUMMARY | 2023-08-21 13:04 | External Medical Summary | Summary of Care ---
Author Name Unknown Organization [facility] Address [address] [place] [place] [address] Phone [phone] Care Team Providers Care Inside Sales Supervisor Name Role Phone Unavailable Primary Care Provider Unavailabl e Reason for Visit * Reason Comments Return Visit Encounter Details Date Type Department Care Team Description 05/10/2023 Office Visit Gynecology/Obstetric [facility] [address] [place] [address] Brie Teresa CRNP [address] [place] [address] Supervision of high risk in second trimester*; Pyelectasis of fetus on ultrasound; History of loop electrosurgical excision procedure (LEEP) of cervix affecting , antepartum; Family history of seizure disorder; STD (sexually transmitted disease) complicating , antepartum; History of molar Allergies Active Allergy Reactions Severity Noted Date Comments Amoxicillin Rash 04/22/2008 Amoxil documented as of this encounter (statuses as of 05/10/2023) Medications Medication Sig Dispensed Refills Start Date End Date Status Flintstones Complete 10 MG Oral Tablet Chewable Take by mouth. 0 Active documented as of this encounter (statuses as of 05/10/2023) Active Problems Problem Noted Date Pyelectasis of [...] 32-36 weeks gestation. We recommend alerting the utilization specialist providing care of this finding if it [...] as of this encounter (statuses as of 05/10/2023) Resolved Problems Problem Noted Date Resolved Date Blighted ovum 07/16/2022 05/10/2023 IUD check up 04/13/2017 07/01/2020 Adolescent Acne 01/03/2008 07/01/2020 documented as of this encounter (statuses as of 05/10/2023) Immunizations Name Administration Dates Next Due TDAP (age 10 and older)(Boostrix) 05/26/2019 documented as of this encounter Social History [...] Sign Reading Time Taken Comments Blood Pressure 94/56 05/10/2023 8:30 AM EDT Pulse - - Temperature - - Respiratory Rate - - Oxygen Saturation - - Inhaled Oxygen Concentration - - Weight 56.2 kg (124 lb) 05/10/2023 8:30 AM EDT Height - - Body Mass Index 24.22 03/14/2023 1:59 PM EDT documented in this encounter Progress Notes * MC Hall - 05/10/2023 8:36 AM EDT 24 wks + movement. No bleeding/leaking. When on her feet all day at work, she is having BH ctx. Theseresolve with rest and hydration. Note given to provide frequent breaks. Discussed labs & Tdap to be completed at next visit. Scheduled for [facility] u/s next month. MC Elizondo documented in this encounter Nursing Notes * Samanta Odonnell LPN - 05/10/2023 8:31 AM EDT 24w0d Denies vaginal bleeding/rom + movement Noticing some dagmar pereira- on feet all day at work- requesting note for frequent breaks. documented in this encounter Plan of Treatment Upcoming Encounters Date Type Specialty Care Team Description 06/11/2023 Laboratory Laboratory [facility] [address] [facility] [place] [address] 06/11/2023 Office Visit Gynecology Obstetrics Backelza, [facility]bell [address] [place] [address] 06/28/2023 Imaging Radiology Scheduled Orders Name Type Priority Associated Diagnoses Orde r Schedule CBC WITH WBC DIFFERENTIAL AND ANEMIA REFLEX WORKUP Lab Routine Supervision of high risk in second trimester Expected: 05/24/2023, Expires: 05/10/2024 50-G GESTATIONAL GLUCOSE, 1 HOUR Lab Routine Supervision of high risk in second trimester Expected: 05/24/2023 (Approximate), Expires: 05/10/2024 SYPHILIS ANTIBODY SCREEN WITH REFLEX TO RPR Lab Routine Supervision of high risk in second trimester Expected: 05/24/2023 (Approximate), Expires: 05/10/2024 Health Maintenance Due Date Last Done Comments Hepatitis B (1 of 3 - 3-dose series) 1994 COVID-19 Vaccine (#1) 1994 Influenza Vaccine (FLU shot) (#1) 2023 Depression Screening, Annual for Pts 12 and Over 07/10/2023 07/10/2022 Pap Smear 01/15/2026 01/15/2023, 04/2 10/2020, 06/19/2019, Additional history exists DTaP,Tdap,and Td Vaccines (2 - Td or Tdap) 05/26/2029 05/26/2019 Hepatitis C Screening Completed 01/15/2023 , [...] Diagnoses Diagnosis Supervision of high risk in second trimester- Primary Unspecified high-risk Pyelectasis of fetus [...]
--- OUTSIDE RECORDS SUMMARY | 2023-08-21 13:04 | External Medical Summary ---
Author Name Unknown Address Unknown Organization [id number]:[facility] [address] [facility] [address] Laboratory Report Ordering Provider Test Date Status KIM ELI 06/11/2023 09:50:34 Final Observation Date Value Abnormality Reference (Units ) Status SYNC LEUKOCYTES IN BLOOD BY AUTOMATED COUNT 06/11/2023 09:50:34 6.74 4.00-10.80 (K/uL) Final Segs 06/11/2023 09:50:34 76.7 Above high normal 40.0-75.0 (%) Final Lymphs % 06/11/2023 09:50:34 18.1 18.0-42.0 (%) Final Monos 06/11/2023 09:50:34 4.3 1.0-11.0 (%) Final Eosinophils 06/11/2023 09:50:34 0.6 0.0-6.0 (%) Final Basos 06/11/2023 09:50:34 0.3 0.0-2.0 (%) Final Absolute Segs 06/11/2023 09:50:34 5.17 1.80-7.70 (K/uL) Final Lymphs, absolute 06/11/2023 09:50:34 1.22 1.00-4.80 (K/ul) Final Monos, Abs 06/11/2023 09:50:34 0.29 0.00-1.10 (K/uL) Final Eos, Abs 06/11/2023 09:50:34 0.04 0.00-0.70 (K/uL) Final Basos, Abs 06/11/2023 09:50:34 0.02 0.00-0.20 (K/uL) Final Performing Location [facility] [place] [address]
--- OUTSIDE RECORDS SUMMARY | 2023-08-21 13:04 | External Medical Summary | Summary of Care ---
Author Name Unknown Organization [facility] Address [address] [place] [address] Phone [phone] Care Team Providers Care Assistant Hairstylist Name Role Phone Unavailable Primary Care Provider Unavailabl e Reason for Referral * Evaluate & Treat - Unlimited Visits (Within 10 days (routine)) - Pending Review Specialty Diagnoses / Procedures Referred By Amada gibbs Referred To Contact Maternal and Medicine Diagnoses Pyelectasis of fetus on ultrasound 31 weeks gestation of Ultrasound for screening for growth restriction Trice Ruiz DO [address] [place] [address] Referral ID Status Reason Start Date Expiration Date Visits Requested Visits Authorized [id number] Pending Review Specialty Services Required 06/28/2023 1 1 Question Answer Referral Priority Within 10 days (routine) Referral Reason mild left UTD- persistent Does the patient have a [facility] OB provider? Yes Encounter Details Date Type Department Care Team Description 06/28/2023 Office Visit Patient Support Representative Obstetrics Maternal Medicine, [facility] [address] [facility] [address] Trice Ruiz DO [address] [place], [place] [id number] Pyelectasis of fetus on ultrasound*; 31 weeks gestation of ; Ultrasound for screening for growth restriction Allergies Active Allergy Reactions Severity Noted Date Comments Amoxicillin Rash 04/22/2008 Amoxil documented as of this encounter (statuses as of 06/28/2023) Medications No known medicationsdocumented as of this encounter (statuses as of 06/28/2023) Active Problems Problem Noted Date Pyelectasis of [...] 32-36 weeks gestation. We recommend alerting the tele tech providing care of this finding if it [...] as of this encounter (statuses as of 06/28/2023) Resolved Problems Problem Noted Date Resolved Date Blighted ovum 07/16/2022 05/10/2023 IUD check up 04/13/2017 07/01/2020 Adolescent Acne 01/03/2008 07/01/2020 documented as of this encounter (statuses as of 06/28/2023) Immunizations Name Administration Dates Next Due TDAP [...] on file documented as of this encounter Progress Notes * Trice Tierney DO - 06/28/2023 4:11 PM EDT Rosita presented today at 31w0d for an ultrasound for the following indications: Pyelectasis of fetus on ultrasound 31 weeks gestation of Ultrasound for screening for growth restriction Ultrasound summary: Patient presented at 31w 0d for growth assessment. Normal growth with EFW 1626 g at 30%ile. Normal MILKA at 10.1 cm. Cephalic presentation. Persistent mild left UTD. I reviewed the ultrasound images. Rosita was given the opportunity to meet with me if she had any questions. Please refer to the ultrasound report for additional details about today's ultrasound examination. RECOMMENDATIONS: Follow up with MFM for ultrasound as clinically indicated. See prior formal MFM consultation note. Thank you for allowing us to participate in the care of this patient. Please call with any questions. Trice Ruiz DO 06/28/2023 4:12 PM documented in this encounter Plan of Treatment Upcoming Encounters Date Type Specialty Care Team Description 07/12/2023 Office Visit Gynecology Obstetrics Clary Us CRNP [address] [place] [address] 08/02/2023 Imaging Radiology Scheduled Referrals Name Type Priority Associated Diagnoses Orde r Schedule [facility] OP Referral Within 10 days (routine) Pyelectasis of fetus on ultrasound 31 weeks gestation of Ultrasound for screening for growth restriction Ordered: 06/28/2023 Health Maintenance Due Date Last Done Comments [...] as of this encounter Visit Diagnoses Diagnosis Pyelectasis of fetus on ultrasound- Primary Abnormal findings on screening 31 weeks gestation of state, incidental Ultrasound for screening for growth restriction screening for growth retardation using ultrasonics documented in this encounter Advance Directives Latest Code Status on File Code Status Date Activated Date Inactivated Comments Full Code 07/18/2022 11:53 AM 07/18/2022 5:18 PM Th is order reflects the patients wishes and were consensually agreed upon. Question Answer Comments Discussion of Advance Directives occurred with: Patient
--- OUTSIDE RECORDS SUMMARY | 2023-08-21 13:04 | External Medical Summary ---
Author Name Unknown Address Unknown Organization [id number]:[facility] [address] [place] [address] Laboratory Report Ordering Provider Test Date Status KIM ELI 08/02/2023 13:30:51 Final Observation Date Value Abnormality Reference (Units ) Status Chlamydia trachomatis rRNA [Presence] in Specimen by RADHA with probe detection 08/02/2023 13:30:51 Negative Negative Final No Chlamydia trachomatis det ected by sub assembly team worker-mediated nucleic acid amplification. Neisseria gonorrhoeae rRNA [ Presence] in Specimen by RADHA with probe detection 08/02/2023 13:30:51 Negative Negative Final No Neisseria gonorrhoeae det ected by sub assembly team worker-mediated nucleic acid amplification. Performing Location [facility] [place] [address] [place] [address]
--- OUTSIDE RECORDS SUMMARY | 2023-08-21 13:04 | External Medical Summary ---
Author Name Unknown Address Unknown Organization [id number]:[facility] [place] [facility] [address] [place] [address] Laboratory Report Ordering Provider Test Date Status AMARA TRIPP 08/20/2023 11:56:02 Final Normal: <150 mg/ g creatinine
High: 150-500 mg/g creatinine
Very High: >500 mg/g creatinine
Nephrotic: >3000 mg/g creatinine Observation Date Value Abnormality Reference (Units ) Status Protein/Creatinine [Ratio] in Urine 08/20/2023 11:56:02 1697 Above high normal <150 (mg/g ) Final Protein, Urine 08/20/2023 11:56:02 375 (mg/dL) Final Creatinine, Urine 08/20/2023 11:56:02 221 (mg/dL) Final Performing Location [facility] - [facility] [address] [place] [address]
--- OUTSIDE RECORDS SUMMARY | 2023-08-21 13:04 | External Medical Summary | Summary of Care ---
Author Name Unknown Organization [facility] Address [address] [place] [address] Phone [phone] Care Team Providers Care Hydraulic Chair Assembler Name Role Phone Unavailable Primary Care Provider Unavailabl e Encounter Details Date Type Department Care Team (Late st Contact Info) Description 08/02/2023 2:30 PM EDT Office Visit Pharmacy Operations Specialist Obstetrics Maternal Medicine, [facility] [place] [address] Trice Ruiz, DO [address] [place], [place] [phone] Pyelectasis of fetus on ultrasound*; Ultrasound for screening for growth restriction Allergies Active Allergy Reactions Criticality Noted Date Comments Amoxicillin Rash 04/22/2008 Amoxil documented as of this encounter (statuses as of 08/03/2023) Medications No known medicationsdocumented as of this encounter (statuses as of 08/03/2023) Active Problems Problem Noted Date Diagnosed Date [...] as of this encounter (statuses as of 08/03/2023) Resolved Problems Problem Noted Date Diagnosed Date Resolved Date Blighted ovum 07/16/2022 05/10/2023 IUD check up 04/13/2017 07/01/2020 Adolescent Acne 01/03/2008 07/01/2020 documented as of this encounter (statuses as of 08/03/2023) Immunizations Name Administration Dates Next Due TDAP [...] money to get more. Never true 01/15/2023 [place] Depression Scale Answer Date Recorded [place] Depression Scale Total 3 07/27/2023 The thought [...] of this encounter Progress Notes * Trice Ruiz, - 08/02/2023 4:00 PM EDT Rosita presented today at 36w0d for an ultrasound for the following indications: Pyelectasis of fetus on ultrasound Assessment & Plan: Left UTD persists. Ultrasound for screening for growth restriction Ultrasound summary: Patient presented at 36w 0d for growth assessment. Normal growth with EFW 2473 g at 18%ile. Normal MILKA at 6.9 cm. Cephalic presentation. I reviewed the ultrasound images. Rosita was [...] call with any questions. Trice Ruiz DO 08/02/2023 4:00 PM documented in this encounter Miscellaneous Notes * Assessment & Plan Note - Trice Ruiz DO - 08/02/2023 4:00 PM EDT Associated Problem(s): Pyelectasis of fetus on ultrasound Left UTD persists. Please notify pediatrics at delivery. documented in this encounter Plan of Treatment Upcoming Encounters Date Type Department Care Team (Late st Contact Info) Description 08/08/2023 11:30 AM EST Office Visit Gynecology/Obstetrics [facility] [address] [place], [place] [address] Brie Teresa CRNP [address] [place] [address] 08/15/2023 11:30 AM EST Office Visit Gynecology/Obstetrics [facility] [address] [place] [address] Brie Teresa CRNP [address] [place] [address] 08/20/2023 11:30 AM EST Office Visit Gynecology/Obstetrics [facility] [address] [place] [address] Kirstie Aden PA-C [address] [place] [address] 08/28/2023 1:30 PM EST Office Visit Gynecology/Obstetrics [facility] [address] [place] [address] Clary Us CRNP [address] [place] [address] Health Maintenance Due Date Last Done Comments [...] on ultrasound- Primary Abnormal findings on screening Ultrasound for screening for growth restriction screening [...]
--- OUTSIDE RECORDS SUMMARY | 2023-08-21 13:04 | External Medical Summary | Summary of Care ---
Author Name Unknown Organization [facility] Address [address] [place] [address] Phone [phone] Care Team Providers Care Doctor Of Audiology Name Role Phone Unavailable Primary Care Provider Unavailabl e Reason for Visit * Reason Comments Return Visit Encounter Details Date Type Department Care Team Description 06/28/2023 Office Visit Gynecology/Obstetric [facility] [address] [place] [address] Clary Us CRNP [address] [place] [address] Supervision of high risk in third trimester*; [...] 32-36 weeks gestation. We recommend alerting the software engineer intern providing care of this finding if it [...] Reading Time Taken Comments Blood Pressure 100/62 06/28/2023 8:36 AM EDT Pulse - - Temperature - - Respiratory Rate - - Oxygen Saturation - - Inhaled Oxygen Concentration - - Weight 58.4 kg (128 lb 12.8 oz) 06/28/2023 8:36 AM EDT Height 152.4 cm (5') 06/28/2023 8:36 AM EDT Body Mass Index 25.15 06/28/2023 8:36 AM EDT documented in this encounter Progress Notes * MC Rae - 06/28/2023 8:57 AM EDT 31w0d Complaints: none Feeling well. Fewer contractions than last visit, only occasional BH now. Good FM. No bleeding or LOF. MC Rae * Sneha Hearn LPN - 06/28/2023 8:41 AM EDT 31w0d Pt denies any concerns. documented in this encounter Plan of Treatment Upcoming Encounters Date Type Specialty Care Team Description 06/28/2023 Imaging Radiology 07/12/2023 Office Visit Gynecology Obstetrics Clary Us CRNP [address] [place] [address] Health Maintenance Due Date Last Done Comments [...]
--- OUTSIDE RECORDS SUMMARY | 2023-08-21 13:04 | External Medical Summary ---
Author Name Unknown Address Unknown Organization K01:[facility] [place] - [address] [place] [address] Laboratory Report Ordering Provider Test Date Status KIM ELI 06/11/2023 09:50:34 Final Observation Date Value Abnormality Reference (Units ) Status Ferritin 06/11/2023 09:50:34 12 Below low normal 13- 150 (ng/mL) Final Performing Location [facility] [place] - [address] [place] [address]
--- OUTSIDE RECORDS SUMMARY | 2023-08-21 13:04 | External Medical Summary | Summary of Care ---
Author Name Unknown Organization [facility] Address [address] [place] [address] Phone [phone] Care Team Providers Care Molder Feeder Name Role Phone Unavailable Primary Care Provider Unavailabl e Encounter Details Date Type Department Care Team (Late st Contact Info) Description 08/02/2023 2:30 PM EDT Office Visit Director Skills Obstetrics Maternal Medicine, [facility] [place] [address] Trice Ruiz, DO [address] [place], [place] [phone] Pyelectasis of fetus on ultrasound*; Ultrasound for [...] money to get more. Never true 01/15/2023 [place] Depression Scale Answer Date Recorded [place] Depression Scale Total 3 07/27/2023 The thought [...] 11:30 AM EST Office Visit Gynecology/Obstetrics [facility] [address] [place], [place] [address] Brie Teresa CRNP [address] [place] [address] 08/15/2023 11:30 AM EST Office Visit Gynecology/Obstetrics [facility] [address] [place] [address] Brie Teresa CRNP [address] [place] [address] 08/20/2023 11:30 AM EST Office Visit Gynecology/Obstetrics [facility] [address] [place] [address] Kirstie Aden PA-C [address] [place] [address] 08/28/2023 1:30 PM EST Office Visit Gynecology/Obstetrics [facility] [address] [place] [address] Clary Us CRNP [address] [place] [address] Health Maintenance Due Date Last Done Comments [...]
--- OUTSIDE RECORDS SUMMARY | 2023-08-21 13:04 | External Medical Summary | Summary of Care ---
Author Name Unknown Organization [facility] Address [address] [facility] [place] [address] Phone [phone] Care Team Providers Care Marketing Development Representative Name Role Phone Unavailable Primary Care Provider Unavailabl e Reason for Visit * Reason Comments Return Visit Encounter Details Date Type Department Care Team ([facility] st Contact Info) Description 08/15/2023 11:30 AM EST [facility] [address] [place] [address] BackBrie bertrand CRNP [address] [place] [address] Supervision of high risk in third trimester*; Pyelectasis of fetus on ultrasound; History of loop electrosurgical excision procedure (LEEP) of cervix affecting , antepartum; Family history of seizure disorder; STD (sexually transmitted disease) complicating , antepartum; History of molar ; Breast feeding status of mother Allergies Active Allergy Reactions Criticality Noted Date Comments Amoxicillin Rash 04/22/2008 Amoxil documented as of this encounter (statuses as of 08/15/2023) Medications Medication Sig Dispensed Refills Start Date End Date Status Breast PumpIndications:Breas t feeding status of mother Double electric pump, ANDREW 08/30/23, Z39.1 1 Each 0 08/15/2023 Active documented as of this encounter (statuses as of 08/15/2023) Active Problems Problem Noted Date Diagnosed Date [...] as of this encounter (statuses as of 08/15/2023) Resolved Problems Problem Noted Date Diagnosed Date Resolved Date Blighted ovum 07/16/2022 05/10/2023 IUD check up 04/13/2017 07/01/2020 Adolescent Acne 01/03/2008 07/01/2020 documented as of this encounter (statuses as of 08/15/2023) Immunizations Name Administration Dates Next Due TDAP [...] money to get more. Never true 01/15/2023 [place] Depression Scale Answer Date Recorded [place] Depression Scale Total 3 07/27/2023 The thought [...] Sign Reading Time Taken Comments Blood Pressure 122/80 08/15/2023 11:36 AM EST Pulse - - Temperature - - Respiratory Rate - - Oxygen Saturation - - Inhaled Oxygen Concentration - - Weight 63.5 kg (140 lb) 08/15/2023 11:36 AM EST Height - - Body Mass Index 27.34 07/27/2023 11:20 AM EDT documented in this encounter Progress Notes * Samanta Odonnell LPN - 08/15/2023 11:36 AM EST 37w6d Denies vaginal bleeding/rom + movement Some contractions but nothing consistent * Brie Teresa CRNP - 08/15/2023 11:35 AM EST 37w6d Some occasional ctx, nothing regular. No bleeding/leaking, baby is moving well. Having nausea this morning; no diarrhea, fevers. Ensure adequate hydration, bland diet as tolerated. Declines anti-nausea Rx; call office if worsening. Rx for breast pump provided. 1 week return MC Elizondo documented in this encounter Plan of Treatment Upcoming Encounters Date Type Department Care Team (Late st Contact Info) Description 08/20/2023 11:30 AM EST Office [facility] [address] [place] [address] Kirstie Aden PA-C [address] [place] [address] 08/28/2023 1:30 PM EST Office [facility] [address] [place] [address] Clary Us CRNP [address] [place] [address] Health Maintenance Due Date Last Done Comments [...] antepartum maternal venereal disease History of molar Breast feeding status of mother care and examination of lactating mother documented in this encounter Advance Directives Latest Code Status on File Code Status Date Activated Date Inactivated Comments Full Code 07/18/2022 11:53 AM 07/18/2022 5:18 PM Th is order reflects the patients wishes and were consensually agreed upon. Question Answer Comments Discussion of Advance Directives occurred with: Patient
--- OUTSIDE RECORDS SUMMARY | 2023-08-21 13:04 | External Medical Summary ---
Author Name Unknown Address Unknown Organization [id number]:LABORATORY [facility] [address] [place] [address] Laboratory Report Ordering Provider Test Date Status ALCIRAKIM 06/11/2023 09:50:34 Final Observation Date Value Abnormality Reference (Units ) Status Glucose [Moles/volume] in Serum or Plasma --1 hour post 50 g glucose PO 06/11/2023 09:50:34 108 70-129 (mg/dL) Final Performing Location LABORATORY [facility] [address] [place] [address]
--- OUTSIDE RECORDS SUMMARY | 2023-08-21 13:04 | External Medical Summary ---
Author Name Unknown Address Unknown Organization K01:LABORATORY [place] [address] [address] [facility] [address] Laboratory Report Ordering Provider Test Date Status KIM ELI 06/11/2023 09:50:34 Final Observation Date Value Abnormality Reference (Units ) Status Retic, % (auto) 06/11/2023 09:50:34 1.94 Above high normal 0.80-1.90 (%) Final Reticulocytes, Absolute 06/11/2023 09:50:34 80.7 31.3-100.1 (K/uL) Final Reticulocyte fraction, immature 06/11/2023 09:50:34 30.3 Above high normal 2.5-20.6 (%) Final Reticulocyte HGB 06/11/2023 09:50:34 29.9 29.7-37.4 (pg) Final Performing Location LABORATORY [facility] [address] [facility] [address]
--- OUTSIDE RECORDS SUMMARY | 2023-08-21 13:04 | External Medical Summary | Summary of Care ---
Author Name Unknown Organization [facility] Address [address] [place] [address] Phone [phone] Care Team Providers Care Acid Wash Operator Name Role Phone Unavailable Primary Care Provider Unavailabl e Reason for Visit * Reason Comments Outpatient Testing Encounter Details Date Type Department Care Team Description 06/11/2023 Laboratory Laboratory, [facility] [address] [place] [address] [facility] [address] [facility] [place] [address] Supervision of high risk in second trimester Allergies Active Allergy Reactions Severity Noted Date Comments Amoxicillin Rash 04/22/2008 Amoxil documented as of this encounter (statuses as of 06/11/2023) Medications Medication Sig Dispensed Refills Start Date End Date Status Flintstones Complete 10 MG Oral Tablet Chewable Take by mouth. 0 Active documented as of this encounter (statuses as of 06/11/2023) Active Problems Problem Noted Date Pyelectasis of [...] 32-36 weeks gestation. We recommend alerting the grades 7 8 tutor providing care of this finding if it [...] as of this encounter (statuses as of 06/11/2023) Resolved Problems Problem Noted Date Resolved Date Blighted ovum 07/16/2022 05/10/2023 IUD check up 04/13/2017 07/01/2020 Adolescent Acne 01/03/2008 07/01/2020 documented as of this encounter (statuses as of 06/11/2023) Immunizations Name Administration Dates Next Due TDAP [...] on file documented as of this encounter Plan of Treatment Upcoming Encounters Date Type Specialty Care Team Description 06/15/2023 Office Visit Gynecology Obstetrics Brie Teresa CRNP [address] [place] [address] 06/28/2023 Imaging Radiology 07/12/2023 Office Visit Gynecology Obstetrics Clary Us CRNP [address] [place] [address] Pending Results Name Type Priority Associated Diagnoses Date /Time CBC WITH WBC DIFFERENTIAL AND ANEMIA REFLEX WORKUP Lab Routine Supervision of high risk in second trimester 06/11/2023 9:50 AM EDT 50-G GESTATIONAL GLUCOSE, 1 HOUR Lab Routine Supervision of high risk in second trimester 06/11/2023 9:50 AM EDT SYPHILIS ANTIBODY SCREEN WITH REFLEX TO RPR Lab Routine Supervision of high risk in second trimester 06/11/2023 9:50 AM EDT ANEMIA CBC Lab Routine Supervision of high risk in second trimester 06/11/2023 9:50 AM EDT DIFFERENTIAL, AUTOMATED Lab Routine Supervision of high risk in second trimester 06/11/2023 9:50 AM EDT ANEMIA REFLEX CHEMISTRY HOLD Lab Routine Supervision of high risk in second trimester 06/11/2023 9:50 AM EDT SYPHILIS ANTIBODY SCREEN Lab Routine Supervision of high risk in second trimester 06/11/2023 9:50 AM EDT Health Maintenance Due Date Last Done [...] Diagnosis Supervision of high risk in second trimester Unspecified high-risk documented in this encounter Advance Directives Latest Code Status on File Code Status Date Activated Date Inactivated Comments Full Code 07/18/2022 11:53 AM 07/18/2022 5:18 PM Th is order reflects the patients wishes and were consensually agreed upon. Question Answer Comments Discussion of Advance Directives occurred with: Patient
--- OUTSIDE RECORDS SUMMARY | 2023-08-21 13:04 | External Medical Summary | Summary of Care ---
Author Name Unknown Organization [facility] Address [address] [place] [facility] [place] [address] Phone [phone] Care Team Providers Care Embedded Software Design Engineer Name Role Phone Unavailable Primary Care Provider Unavailabl e Reason for Visit * Reason Comments Return Visit Encounter Details Date Type Department Care Team Description 07/12/2023 Office Visit Gynecology/Obstetric alexander [place] [address] [place] [address] Clary Us CRNP [address] [place] [address] Supervision of high risk in third trimester*; Pyelectasis of fetus on ultrasound; History of loop electrosurgical excision procedure (LEEP) of cervix affecting , antepartum; Family history of seizure disorder; STD (sexually transmitted disease) complicating , antepartum; History of molar Allergies Active Allergy Reactions Severity Noted Date Comments Amoxicillin Rash 04/22/2008 Amoxil documented as of this encounter (statuses as of 07/12/2023) Medications No known medicationsdocumented as of this encounter (statuses as of 07/12/2023) Active Problems Problem Noted Date Pyelectasis of [...] 32-36 weeks gestation. We recommend alerting the consumer product advisor providing care of this finding if it [...] as of this encounter (statuses as of 07/12/2023) Resolved Problems Problem Noted Date Resolved Date Blighted ovum 07/16/2022 05/10/2023 IUD check up 04/13/2017 07/01/2020 Adolescent Acne 01/03/2008 07/01/2020 documented as of this encounter (statuses as of 07/12/2023) Immunizations Name Administration Dates Next Due TDAP [...] Sign Reading Time Taken Comments Blood Pressure 102/64 07/12/2023 1:25 PM EDT Pulse - - Temperature - - Respiratory Rate - - Oxygen Saturation - - Inhaled Oxygen Concentration - - Weight 60.3 kg (133 lb) 07/12/2023 1:25 PM EDT Height 152.4 cm (5') 07/12/2023 1:25 PM EDT Body Mass Index 25.97 07/12/2023 1:25 PM EDT documented in this encounter Progress Notes * MC Rae - 07/12/2023 1:47 PM EDT 33w0d Complaints: none Feeling well overall. Good FM. No contractions, bleeding, or LOF. MC Rae * Sneha Hearn LPN - 07/12/2023 1:30 PM EDT 33w0d Pt denies any concerns. Labor instructions given. documented in this encounter Plan of Treatment Upcoming Encounters Date Type Specialty Care Team Description 07/26/2023 Office Visit Gynecology Obstetrics Brie Teresa CRNP [address] [place] [address] 08/02/2023 Office Visit Gynecology Obstetrics Brie Teresa CRNP [address] [place] [address] 08/02/2023 Imaging Radiology 08/09/2023 Office Visit Gynecology Obstetrics Brie Teresa CRNP [address] [place] [address] 08/16/2023 Office Visit Gynecology Obstetrics Clary Us CRNP [address] [place] [address] 08/20/2023 Office Visit Gynecology Obstetrics Tomi Cruz, [address] [place] [address] 08/28/2023 Office Visit Gynecology Obstetrics Clary Us CRNP [address] [place] [address] Health Maintenance Due Date Last Done Comments [...]
--- OUTSIDE RECORDS SUMMARY | 2023-08-21 13:04 | External Medical Summary ---
Author Name Unknown Address Unknown Organization K01:[facility] [place] [address] [place] [address] Laboratory Report Ordering Provider Test Date Status KIM ELI 06/11/2023 09:50:34 Final Observation Date Value Abnormality Reference (Units ) Status Iron 06/11/2023 09:50:34 70 33-151 (ug/dL) Final Iron-binding capacity 06/11/2023 09:50:34 502 Above high normal 250-425 (ug/dL) Final Transferrin Sat % 06/11/2023 09:50:34 14 Below low normal 15-55 (%) Final Performing Location LAB[facility] [place] - [address] [place] [address]
--- OUTSIDE RECORDS SUMMARY | 2023-08-21 13:05 | External Medical Summary | Summary of Care ---
Author Name Unknown Organization [facility] Address [address] [facility] [place] [address] Phone [phone] Care Team Providers Care Swing Grinder Name Role Phone Unavailable Primary Care Provider Unavailabl e Reason for Visit * Reason Comments Return Visit Encounter Details Date Type Department Care Team Description 04/11/2023 Office Visit Gynecology/Obstetric alexander [place] [address] [place] [address] Brie Teresa CRNP [address] [place] [address] Supervision of high risk in second trimester*; Pyelectasis of fetus on ultrasound; History of loop electrosurgical excision procedure (LEEP) of cervix affecting , antepartum; Family history of seizure disorder; STD (sexually transmitted disease) complicating , antepartum; History of molar Allergies Active Allergy Reactions Severity Noted Date Comments Amoxicillin Rash 04/22/2008 Amoxil documented as of this encounter (statuses as of 04/11/2023) Medications Medication Sig Dispensed Refills Start Date End Date Status Flintstones Complete 10 MG Oral Tablet Chewable Take by mouth. 0 Active documented as of this encounter (statuses as of 04/11/2023) Active Problems Problem Noted Date Pyelectasis of [...] 32-36 weeks gestation. We recommend alerting the sushi chef providing care of this finding if it [...] using B-hcg, so will need follow-up . Blighted ovum 07/16/2022 Migraine variant 02/22/2021 Depression with anxiety 07/01/2020 Estimated Date of Delivery Comme nts Yes 08/30/2023 Based on last me nstrual period of 11/23/2022 (Exact Date) documented as of this encounter (statuses as of 04/11/2023) Resolved Problems Problem Noted Date Resolved Date IUD check up 04/13/2017 07/01/2020 Adolescent Acne 01/03/2008 07/01/2020 documented as of this encounter (statuses as of 04/11/2023) Immunizations Name Administration Dates Next Due TDAP [...] Reading Time Taken Comments Blood Pressure 94/56 04/11/2023 11:34 AM EDT Pulse - - Temperature - - Respiratory Rate - - Oxygen Saturation - - Inhaled Oxygen Concentration - - Weight 54 kg (119 lb) 04/11/2023 11:34 AM EDT Height - - Body Mass Index 23.24 03/14/2023 1:59 PM EDT documented in this encounter Progress Notes * MC Hall - 04/11/2023 11:34 AM EDT 19w 6d MFM ultrasound on 04/05, pyelectasis noted. Recommending follow up MFM growth scan, scheduled for June. Low risk genetic screening. Feeling baby move. Denies cramping, bleeding. 4 week return MC Elizondo documented in this encounter Nursing Notes * Samanta Odonnell LPN - 04/11/2023 11:34 AM EDT 19w6d Denies vaginal bleeding/rom + movement Anatomy with MFM documented in this encounter Plan of Treatment Upcoming Encounters Date Type Specialty Care Team Description 05/10/2023 Office Visit Gynecology Obstetrics Backel[place], MC [place] [address] [facility] [place] [address] 06/28/2023 Imaging Radiology Health Maintenance Due Date Last Done Comments Hepatitis B (1 of 3 - 3-dose series) 1995 COVID-19 Vaccine (#1) 1994 Influenza Vaccine (FLU shot) (#1) 2023 Depression Screening, Annual for Pts 12 and Over 07/10/2023 07/10/2022 Pap Smear 01/15/2026 01/15/2023, 0410/2020, [...]
--- OUTSIDE RECORDS SUMMARY | 2023-08-21 13:05 | External Medical Summary | Summary of Care ---
Author Name Unknown Organization [facility] Address [address] [place] [address] Phone [phone] Care Team Providers Care Clockmaker Name Role Phone Unavailable Primary Care Provider Unavailabl e Reason for Visit * Reason Comments Ultrasound * Evaluate & Treat - Unlimited Visits (Within 10 days (routine)) - Pending Review Specialty Diagnoses / Procedures Referred By Amada gibbs Referred To Contact Obstetrics/Gynecology / Maternal Medicine Diagnoses Chlamydia infection affecting in first trimester Gonorrhea affecting in first trimester History of loop electrosurgical excision procedure (LEEP) affecting care of mother, antepartum History of molar Kirstie Aden PA-C [address] [place] [address] Referral ID Status Reason Start Date Expiration Date Visits Requested Visits Authorized [id number] Pending Review Specialty Services Required 01/22/[phone] Encounter Details Date Type Department Care Team Description 04/05/2023 Office Visit Key Operator Obstetrics Maternal Medicine, [place] [address] [place], [place] [id number] Trice Ruiz, [address] [place] [address] Mayco [place], [place] [address] [address] History of loop electrosurgical excision procedure (LEEP) of cervix affecting , antepartum*; Encounter for anatomic survey; Family history of seizure disorder; Molar ; Pyelectasis of fetus on ultrasound Allergies Active Allergy Reactions Severity Noted Date Comments Amoxicillin Rash 04/22/2008 Amoxil documented as of this encounter (statuses as of 04/05/2023) Medications Medication Sig Dispensed Refills Start Date End Date Status Flintstones Complete 10 MG Oral Tablet Chewable Take by mouth. 0 Active documented as of this encounter (statuses as of 04/05/2023) Active Problems Problem Noted Date Pyelectasis of [...] 32-36 weeks gestation. We recommend alerting the medical hospital sales providing care of this finding if it persists. Supervision of high risk in rst trimester 02/01/2023 History of loop electrosurgi louie excision [...] from intercourse until after partner is treated. Last Assessment & Plan: Partner has not yet been treated Uninsured Partner referred to Family Planning for free STD testing and treatment Molar 01/16/2023 Overview: Hx molar , didn't follow [...] as of this encounter (statuses as of 04/05/2023) Resolved Problems Problem Noted Date Resolved Date IUD check up 04/13/2017 07/01/2020 Adolescent Acne 01/03/2008 07/01/2020 documented as of this encounter (statuses as of 04/05/2023) Immunizations Name Administration Dates Next Due TDAP [...] of this encounter Progress Notes * Trice Tierney, DO - 04/05/2023 3:20 PM EDT MATERNAL MEDICINE VISIT Rosita Stratton presented today at 19w0d for an ultrasound and follow-up of her high risk . She was seen for the following indications: Problem List Items Addressed This Visit Genitourinary History of loop electrosurgical excision procedure (LEEP) of cervix affecting , antepartum- Primary Other Molar No evidence of co-existing molar gestation at this time. Reviewed with patient that surveillance for gestational trophoblastic disease is not possible during using B-hcg, so will need follow-up . Family history of seizure disorder Low risk NIPT and msAFP appreciated. Pyelectasis of fetus on ultrasound CONSIDERATIONS: Reviewed that urinary tract dilation is [...] 32-36 weeks gestation. We recommend alerting the medical hospital sales providing care of this finding if it persists. Other Visit Diagnoses Encounter for anatomic survey We reviewed today's ultrasound findings. 19w0d for anatomical survey. Normal growth with no ultrasonic evidence of structural abnormalities. Left UTD as above. (For full details, please refer to ultrasound report provided separately). Ms. Stratton's questions were answered to her satisfaction. She was advised to contact our office or her OB provider for any additional questions regarding her . RECOMMENDATIONS: Recommend follow up ultrasound with MFM in 12 weeks for growth secondary to UTD. Thank you for allowing us to participate in the care of this patient. Please call with any questions. Trice Ruiz DO 04/05/2023 3:20 PM documented in this encounter Miscellaneous Notes * Assessment & Plan Note - Trice Tierney DO - 04/05/2023 3:19 PM EDT Associated Problem(s): Pyelectasis of fetus on ultrasound CONSIDERATIONS: Reviewed that urinary tract dilation is [...] 32-36 weeks gestation. We recommend alerting the medical hospital sales providing care of this finding if it persists. * Assessment & Plan Note - Trice Tierney DO - 04/05/2023 3:18 PM EDT Associated Problem(s): Molar No evidence of co-existing molar gestation at this time. Reviewed with patient that surveillance for gestational trophoblastic disease is not possible during using B-hcg, so will need follow-up . * Assessment & Plan Note - Trice Tierney DO - 04/05/2023 2:07 PM EDT Associated Problem(s): Family history of seizure disorder Low risk NIPT and msAFP appreciated. documented in this encounter Plan of Treatment Upcoming Encounters Date Type Specialty Care Team Description 04/11/2023 Office Visit Gynecology Obstetrics Backer, MC [place] [address] [place] [address] 06/28/2023 Imaging Radiology Scheduled Referrals Name Type Priority Associated Diagnoses Orde r Schedule MATERNAL MEDICINE REFERRAL OP Referral Within 10 days (routine) Chlamydia infection affecting in first trimester Gonorrhea affecting in first trimester History of loop electrosurgical excision procedure (LEEP) affecting care of mother, antepartum History of molar Ordered: 01/22/2023 Health Maintenance Due Date Last Done Comments Hepatitis B (1 of 3 - 3-dose series) 1994 COVID-19 Vaccine (#1) 1994 Influenza Vaccine (FLU shot) (#1) 2023 Depression Screening, Annual for Pts 12 and Over 07/10/2023 07/10/2022 Pap Smear 01/15/2026 01/15/2023, 12/31, [...] as of this encounter Visit Diagnoses Diagnosis History of loop electrosurgical excision procedure (LEEP) of cervix affecting , antepartum- Primary Encounter for anatomic survey Family history of seizure disorder Family history of other neurological diseases Molar Other abnormal products of conception Pyelectasis of fetus on ultrasound Abnormal findings on screening documented in this encounter Advance Directives Latest Code Status on File Code Status Date Activated Date Inactivated Comments Full Code 07/18/2022 11:53 AM 07/18/2022 5:18 PM Th is order reflects the patients wishes and were consensually agreed upon. Question Answer Comments Discussion of Advance Directives occurred with: Patient
--- OUTSIDE RECORDS SUMMARY | 2023-08-21 13:05 | External Medical Summary ---
Author Name Unknown Address Unknown Organization : Laboratory Report Ordering Provider Test Date Status NOE RIZVI 03/14/2023 14:21:55 Final Observation Date Value Abnormality Reference (Units ) Status INTERPRETATION 03/14/2023 14:21:55 SEE BELOW Final Screen negative for open NTD . RISK FOR ONTD 03/14/2023 14:21:55 1:4700 Final CALC'D GESTATIONAL AGE 0603/14/2023 14:21:55 15.9 Final AFP, SERUM 03/14/2023 14:21:55 52.3 (ng/mL) Final AFP MOM 03/14/2023 14:21:55 1.31 Final Reference Range:
NTD <2 .50
IDD <1.90
TWINS <4.00
TWINS IDD <3.50
TRIPLETS <4.50
The AFP test result indicates that this patient is
screen negative for open NTD. It should be noted
that normal test results can never guarantee the
of a normal baby and that 2-3% of newborns
have some type of physical or mental defect, many
of which are undetectable through any known
diagnostic technique.
This is a screening test, not a diagnostic test.
This risk assessment report is based in part on
demographic data provided by the ordering
physician. Please notify the laboratory promptly
if any data are incorrect. For assistance with
recalculations, please call your local [facility] laboratory. For assistance with
interpretation of these results, please contact
your Local [facility] genetic counselor or
call [phone] ([phone]).
Interpretive Cutoffs
Screen Positive for Open NTD:
> or = 2.50 adjusted MOM
> or = 1.90 adjusted MOM for insulin-dependent diabetics
> or = 4.00 adjusted MOM for twins
> or = 3.50 adjusted MOM for twins insulin-dependent diabetics
> or = 4.50 adjusted MOM for triplets
For additional information, please refer to
[email or web address]
(This link is being provided for
informational/educational purposes only.) DATE OF 03/14/2023 14:21:55 1995 Final COLLECTION DATE 03/14/2023 14:21:55 03/14/2023 Final MATERNAL WEIGHT 03/14/2023 14:21:55 114 (lbs ) Final EST'D DATE OF DELIVERY 03/14/2023 14:21:55 08/30/2023 Final ANDREW DETERMINED BY 03/14/2023 14:21:55 NG Final MOTHER'S ETHNIC ORIGIN 03/14/2023 14:21:55 WHITE Final NUMBER OF FETUSES 03/14/2023 14:21:55 1 Final INSULIN DEPEND DIABETIC 03/14/2023 14:21:55 NO Final REPEAT SPECIMEN 03/14/2023 14:21:55 NO Final HX OF NEURAL TUBE DEFECTS 03/14/2023 14:21:55 NO Final PREV DOWN SYND 03/14/2023 14:21:55 NO Final DONOR EGG 03/14/2023 14:21:55 NO Final DONOR AGE: EGG RETRIEVAL 03/14/2023 14:21:55 NOT GIVEN Final Test performed by [facility]
[address],
[place] [address]

Metal Ceiling Hanger: Samra Bustos MD,PHD,JOSE
Test Reported by Jacki Morejon,
[facility],
[address] [place], [place]
Fernando Brenner M.D., Ph.D., Director of Laboratories
, [facility] [id number] Performing Location
--- OUTSIDE RECORDS SUMMARY | 2023-08-21 13:05 | External Medical Summary | Summary of Care ---
Author Name Unknown Organization [facility] Address [address] [place] [address] Phone [phone] Care Team Providers Care Bakeshop Cleaner Name Role Phone Unavailable Primary Care Provider Unavailabl e Encounter Details Date Type Department Care Team Description 12/18/2022 Telephone Gynecology/Obstetrics [facility] [address] [place], [place] [id number] Maribel Ortiz MD [address] [place], [place] [id number] Allergies Active Allergy Reactions Severity Noted Date Comments Amoxicillin Rash 04/22/2008 Amoxil documented as of this encounter (statuses as of 03/23/2023) Medications No known medicationsdocumented as of this encounter (statuses as of 03/23/2023) Active Problems Problem Noted Date Supervision of high risk in fi rst trimester 02/01/2023 History of loop electrosurgi [...] referral placed NIPT: OB provider to order STD (sexually transmitted disease) compl icating , [...] surveillance' Send placenta at time of delivery Blighted ovum 07/16/2022 Migraine variant 02/22/2021 Depression with anxiety 07/01/2020 documented as of this encounter (statuses as of 03/23/2023) Resolved Problems Problem Noted Date Resolved Date IUD check up 04/13/2017 07/01/2020 Adolescent Acne 01/03/2008 07/01/2020 documented as of this encounter (statuses as of 03/23/2023) Immunizations Name Administration Dates Next Due TDAP [...] money to get more. Never true 01/15/2023 Sex Assigned at Date Recorded Female 07/01/2021 1:43 PM E DT Job Start Date Occupation Industry Not on file Not on file Not on file documented as of this encounter Miscellaneous Notes * Telephone Encounter - Johanna Woo LPN - 12/19/2022 8:37 AM EDT It is really important she understand that a rise could be a new versus gestational trophoblastic disease. Continue to get HCGs drawn weekly. And when they were high enough, will get an ultrasound Thank you Patient is aware and voiced understanding. * Telephone Encounter - Johanna Woo LPN - 12/18/2022 4:44 PM EDT Patient notified. She states she has been sexually active without using control. She had an Hcg drawn today as well and will follow up with another next week. * Telephone Encounter - Dee Dee Chinchilla RN - 12/18/2022 4:38 PM EDT [facility]quivel's pt. * Telephone Encounter - Dee Dee Chinchilla RN - 12/18/2022 4:37 PM EDT ----- Message from aMribel Ortiz MD sent at 12/18/2022 8:20 AM EDT ----- Patient's HCG is now increasing, could be a new or gestational trophoblastic disease. Hasshe been sexually active since her to surgery? Need to repeat hCG in 1 week, please express importance continued follow-up as if it is gestationaltrophoblastic disease will need to send patient to [facility] Thank you ----- Message ----- From: Gilbert Guerrero Automated Processing Sent: 12/16/2022 8:55 PM EDT To: Maribel Ortiz MD documented in this encounter Plan of Treatment Upcoming Encounters Date Type Specialty Care Team Description 04/05/2023 Office Visit Maternal Medicine Trice Ruiz, DO [address] [place] [address] Shira Drubin, MS [address] [place] [address] 04/05/2023 Imaging Radiology 04/11/2023 Office Visit Gynecology Obstetrics Backer, Brie Tejeda, MC [address] [place] [address] Health Maintenance Due Date Last Done Comments Hepatitis B (1 of 3 - 3-dose series) 1995 COVID-19 Vaccine (#1) 1995 Influenza Vaccine (FLU shot) (Season Ended) 2023 Depression Screening, Annual for Pts 12 [...]
--- OUTSIDE RECORDS SUMMARY | 2023-08-21 13:05 | External Medical Summary | Summary of Care ---
Author Name Unknown Organization [facility] Address [address] [place] [address] Phone [phone] Care Team Providers Care Abrasive Band Winder Name Role Phone Unavailable Primary Care Provider Unavailabl e Reason for Visit * Reason Comments Genetic Counseling * Evaluate & Treat - Unlimited Visits (Within 10 days (routine)) - Pending Review Specialty Diagnoses / Procedures Referred By Amada gibbs Referred To Contact Medical Genetics / Hematology Oncology Diagnoses Family history of seizure disorder Jojo Eller CRNP [address] [place] [address] Referral ID Status Reason Start Date Expiration Date Visits Requested Visits Authorized [id number] Pending Review Specialty Services Required 02/01/[phone] Encounter Details Date Type Department Care Team Description 04/05/2023 Office Visit Hse Coordinator Obstetrics Maternal Medicine, [place] [address] [address] Mayco Barnett, [place] [address] [address] Family history of seizure disorder*; Encounter for procreative genetic counseling; Supervision of high-risk , second trimester Allergies Active Allergy Reactions Severity Noted Date Comments Amoxicillin Rash 04/22/2008 Amoxil documented as of this encounter (statuses as of 04/09/2023) Medications Medication Sig Dispensed Refills Start Date End Date Status Flintsbriaes Complete 10 MG Oral Tablet Chewable Take by mouth. 0 Active documented as of this encounter (statuses as of 04/09/2023) Active Problems Problem Noted Date Pyelectasis of [...] 32-36 weeks gestation. We recommend alerting the senior portfolio manager providing care of this finding if it persists. Supervision of high risk in fi rst [...] as of this encounter (statuses as of 04/09/2023) Resolved Problems Problem Noted Date Resolved Date IUD check up 04/13/2017 07/01/2020 Adolescent Acne 01/03/2008 07/01/2020 documented as of this encounter (statuses as of 04/09/2023) Immunizations Name Administration Dates Next Due TDAP [...] as of this encounter Progress Notes * Mayco Barnett, MS - 04/09/2023 12:37 PM EDT Patient location: CLINIC. I was not in a hospital or clinic location. After connecting through televideo, patient was verified with two unique identifiers. Patient (or authorized legal sales account representative) was then informed that this was a Telemedicine visit and being conducted confidentially over secure lines. My office door was closed. No one else was in the room with me. Patient acknowledged consent and understanding of privacy and security of the Telemedicine visit, and gave permission to have atelemedicine presenter stay in the room in order to assist with the history and to conduct the examas needed. I informed the patient that I have reviewed their record in [employer] and presented the opportunity for them to ask any questions regarding the visit today. The patient agreed to participate. GENETIC COUNSELING FOR MATERNAL MEDICINE Rosita Stratton 04/05/2023 Referring provider: MC Finney Seen previously by Genetic Counseling: no REASON FOR CONSULT: Rosita Stratton is a 27 year old year old with an ANDREW of 08/30/2023, placing the patient at approximately 19 weeks 0 days gestation at the time of our consultation. The patient was unaccompanied. Rosita Stratton presents for genetic counseling today due to FOB with personal and family history of seizures. PARTNER'S INFORMATION: Partner's name is Cruz Morel : 04/16/1995 (FOB#2). Partner does have 4-year-old son from prior relationship. CURRENT GENETIC LABS: - NIPT: low risk OB HISTORY: OB History Para Term AB Living 2 0 0 0 1 0 SAB IAB Ectopic Multiple Live Births 0 0 0 0 0 # Outcome Date GA Lbr Max/2nd Weight Sex Delivery Anes PTL Lv 2 Current 1 Molar 2021 Comments: D&C completed Obstetric Comments 2022: FOB #1 Deonte Oconnor, age 26, healthy, has epilepsy / He and brother both have epilepsy FAMILY HISTORY: - A review of the genetic family history for this patient and her partner was performed, however nomedical records were available at the time of consultation. Significant details noted here: Patient's Family History: - Paternal half-brother diagnosed with autism, mild per patient. Maternal first cousin also diagnosed with autism. Partner's Family History: - Partner with seizures. Brother also has seizures. - Previously patient told father and paternal grandfather had seizures as well. Now patient reportsthey had pancreatic cancer, not seizures. - The remaining and family history showed no evidence of defects, multiple miscarriages, intellectual disability, genetic disease, or significant exposures. - A full pedigree was obtained and linked below labeled as "Progress Notes" under "Other Notes" in this encounter. COUNSELIN. FOB with Personal and Family History of Seizures: - Epilepsy is one of the most common neurological disorders, affecting up to one percent of the population in the [place]. We discussed that epilepsy may be isolated or part of a syndrome. Without knowing the etiology of this epilepsy, the exact risk to this is unknown. We recommendthat the patient share this family history with the senior portfolio manager. - Discussed if FOB and brother with seizures, could be due to autosomal recessive condition. However could be autosomal dominant with reduced penetrance. If father and paternal grandfather also had seizurse likely autosomal dominant condition. - Discussed best way to understand if genetic etiology able to be identified is with medical genetics referral. 2. Carrier Screening: AJ ancestry: NO Consanguinity: NO - Reviewed the concept of carrier screening, including benefits, risks, and limitations. - Reviewed ACOG's screening recommendations (cystic fibrosis, spinal muscular atrophy, and hemoglobinopathies), as well as the option for more expanded testing to include over 200 conditions. - Discussed autosomal recessive and X-linked inheritance. Patient is aware that both her and her partner need to be carriers of a recessive condition to have a child that is affected, the risk of an affected child would be 25%. For X-linked conditions, the patient is aware that if she is a carrier,there is a 50% chance her male children would be affected. - Discussed that negative carrier screening significantly reduces the risk of being a carrier for the disorders tested but does not eliminate the risk entirely. - Implications of carrier screening were discussed, including the lack of data on some of the more rare conditions, and the emerging data on carrier status related to disease or susceptibility to disease. - For any future , we recommend that the patient inquire about changes in testing methodologies for carrier screening or updates in panels available. - Discussed for patient's identified to be carrier for X-linked condition or couple identified to be a carrier couple for certain AR conditions, the option of diagnostic testing via amniocentesis or genetic testing through cord blood or through pediatric genetics. 3. FOB with Family History of Cancer: - Discussed that cancer is generally multifactorial in inheritance; that is, genetic and environmental factors influence its development. In some families, the genetic component is remarkably influential, so much so that the family can be diagnosed with a familial cancer genetic syndrome. - These syndromes are typically inherited in an autosomal dominant pattern. Individuals within those families who receive the cancer-predisposing gene change are at a significantly increased lifetimerisk for developing cancer. Cancer syndromes are usually characterized by earlier age of onset, multiple new diagnoses in a single individual, and multiple affected members in the family. - A cancer genetic counselor could potentially help to identify a specific cancer syndrome and/or offer testing to investigate the possibility of a hereditary cancer syndrome. - The best individual for testing is one of the affected members of the family. The family was alsoencouraged to pursue appropriate cancer screening tests when available due to the family history ofcancer. PLAN: - Patient will discuss referral and carrier screening with partner. Will reach out to GC if interested - For any future , we recommend that the patient inquire about changes in testing methodologies for carrier screening or updates in panels available A total of 20 minutes was spent in telemedicine genetic counseling consultation. Thank you for your consult. Please feel free to call with any questions regarding this report. Mayco Barnett MS Licensed, Certified Genetic Counselor documented in this encounter Plan of Treatment Upcoming Encounters Date Type Specialty Care Team Description 04/11/2023 Office Visit Gynecology Obstetrics Backer, MC [place] [address] [facility] [place] [address] 06/28/2023 Imaging Radiology Scheduled Referrals Name Type Priority Associated Diagnoses Orde r Schedule GENETICS REFERRAL OP Referral Within 10 days (routine) Family history of seizure disorder Ordered: 02/01/2023 Health Maintenance Due Date Last Done Comments [...] as of this encounter Visit Diagnoses Diagnosis Family history of seizure disorder- Primary Family history of other neurological diseases Encounter for procreative genetic counseling Supervision of high-risk , second trimester documented in this encounter Advance Directives Latest Code Status on File Code Status Date Activated Date Inactivated Comments Full Code 07/18/2022 11:53 AM 07/18/2022 5:18 PM Th is order reflects the patients wishes and were consensually agreed upon. Question Answer Comments Discussion of Advance Directives occurred with: Patient
--- OUTSIDE RECORDS SUMMARY | 2023-08-21 13:05 | External Medical Summary | Summary of Care ---
Author Name Unknown Organization [facility] [address] [facility] [address] Phone [phone] Care Team Providers Care Butcher Apprentice Name Role Phone Unavailable Primary Care Provider Unavailabl e Reason for Visit * Reason Comments Return Visit Encounter Details Date Type Department Care Team Description 03/14/2023 Office Visit Gynecology/Obstetric s Dae Sevilla [address] [place] [address] Clary Us CRNP [address] [place] [address] Encounter for supervision of other normal in second trimester*; History of loop electrosurgical excision procedure (LEEP) of cervix affecting , antepartum; Family history of seizure disorder; STD (sexually transmitted disease) complicating , antepartum Allergies Active Allergy Reactions Severity Noted Date Comments Amoxicillin Rash 04/22/2008 Amoxil documented as of this encounter (statuses as of 03/14/2023) Medications Medication Sig Dispensed Refills Start Date End Date Status Flintstones Complete 10 MG Oral Tablet Chewable Take by mouth. 0 Active documented as of this encounter (statuses as of 03/14/2023) Active Problems Problem Noted Date Supervision of [...] as of this encounter (statuses as of 03/14/2023) Resolved Problems Problem Noted Date Resolved Date IUD check up 04/13/2017 07/01/2020 Adolescent Acne 01/03/2008 07/01/2020 documented as of this encounter (statuses as of 03/14/2023) Immunizations Name Administration Dates Next Due TDAP [...] Sign Reading Time Taken Comments Blood Pressure 100/50 03/14/2023 1:59 PM EDT Pulse - - Temperature - - Respiratory Rate - - Oxygen Saturation - - Inhaled Oxygen Concentration - - Weight 52.2 kg (115 lb 1.6 oz) 03/14/2023 1:59 P M EDT Height 152.4 cm (5') 03/14/2023 1:59 PM EDT Body Mass Index 22.48 03/14/2023 1:59 PM EDT documented in this encounter Progress Notes * MC Rae - 03/14/2023 2:14 PM EDT 15w6d No concerns. Partner has been tested/treated for STIs since [facility]. Low risk Qnatal, having a boy. MSAFP today. Anatomy u/s scheduled with [facility]. MC Rae documented in this encounter Nursing Notes * MASON Valencia - 03/14/2023 2:06 PM EDT 15w6d Pt denies any concerns. Anatomy u/s with [facility] 04/05/2023. documented in this encounter Plan of Treatment Upcoming Encounters Date Type Specialty Care Team Description 04/05/2023 Office Visit Maternal Medicine Trice Ruiz, DO [address] [place] [address] Shira Garcia, MS [address] [place] [facility] [place] [address] 04/05/2023 Imaging Radiology 04/11/2023 Office Visit Gynecology Obstetrics Backer, MC [place] [address] [place] [address] Pending Results Name Type Priority Associated Diagnoses Date /Time MATERNAL SERUM AFP Lab Routine Encounter for supervision of other normal in second trimester 03/14/2023 2:21 PM EDT Health Maintenance Due Date Last [...] as of this encounter Visit Diagnoses Diagnosis Encounter for supervision of other normal in second trimester- Primary History of loop electrosurgical excision procedure (LEEP) of cervix affecting , antepartum Family history of seizure disorder Family history of other neurological diseases STD (sexually transmitted disease) complicating , antepartum Other antepartum maternal venereal disease documented in this encounter Advance Directives Latest Code Status on File Code Status Date Activated Date Inactivated Comments Full Code 07/18/2022 11:53 AM 07/18/2022 5:18 PM Th is order reflects the patients wishes and were consensually agreed upon. Question Answer Comments Discussion of Advance Directives occurred with: Patient
--- OUTSIDE RECORDS SUMMARY | 2023-08-21 13:05 | External Medical Summary | Summary of Care ---
Author Name Unknown Organization [facility] Address [address] [place] [address] Phone [phone] Care Team Providers Care Superintendent Operating Name Role Phone Unavailable Primary Care Provider Unavailabl e Reason for Visit * Reason Comments Genetic Counseling * Evaluate & Treat - Unlimited Visits (Within 10 days (routine)) - Pending Review Specialty Diagnoses / Procedures Referred By Amada gibbs Referred To Contact Medical Genetics / Hematology Oncology Diagnoses Family history of seizure disorder Jojo Eller CRNP [address] [place] [address] Referral ID Status Reason Start Date Expiration Date Visits Requested Visits Authorized [id number] Pending Review Specialty Services Required 02/01/[phone] Encounter Details Date Type Department Care Team Description 04/05/2023 Office Visit House Worker Obstetrics Maternal Medicine, [place] [address] [address] Mayco Barn[place], [place] [address] [address] Family history of seizure disorder*; Encounter for procreative genetic counseling; Supervision of high-risk , second trimester Allergies Active Allergy Reactions Severity Noted Date Comments Amoxicillin Rash 04/22/2008 Amoxil documented as of this encounter (statuses as of 04/13/2023) Medications Medication Sig Dispensed Refills Start Date End Date Status Bernabees Complete 10 MG Oral Tablet Chewable Take by mouth. 0 Active documented as of this encounter (statuses as of 04/13/2023) Active Problems Problem Noted Date Pyelectasis of [...] 32-36 weeks gestation. We recommend alerting the manager strategic providing care of this finding if it [...] as of this encounter (statuses as of 04/13/2023) Resolved Problems Problem Noted Date Resolved Date IUD check up 04/13/2017 07/01/2020 Adolescent Acne 01/03/2008 07/01/2020 documented as of this encounter (statuses as of 04/13/2023) Immunizations Name Administration Dates Next Due TDAP [...] as of this encounter Progress Notes * PIPPA Pepper - 04/13/2023 1:10 PM EDT Images from the original note were not included. Pedigree * Mayco Barnett, MS - 04/09/2023 12:37 PM EDT Patient location: CLINIC. I was not in a hospital or clinic location. After connecting through [employer], patient was verified with two unique identifiers. Patient (or authorized legal counter sales representative) was then informed that this was [...] that I have reviewed their record in [email or web address] and presented the opportunity for them to [...] patient share this family history with the manager strategic. - Discussed if FOB and brother with [...] Team Description 05/10/2023 Office Visit Gynecology Obstetrics Backer, MC [place] [address] [place] [address] 06/28/2023 Imaging Radiology Scheduled Referrals Name Type [...] Over 07/10/2023 07/10/2022 Pap Smear 01/15/2026 01/15/2023, 04/10/2020, [...] Code 07/18/2022 11:53 AM 07/18/2022 5:18 PM T his order reflects the patients wishes and were consensually agreed upon. Question Answer Comments Discussion of Advance Directives occurred with: Patient
--- OUTSIDE RECORDS SUMMARY | 2023-08-21 13:05 | External Medical Summary | Summary of Care ---
Author Name Unknown Organization [facility] Address [address] [place] [address] Phone [phone] Care Team Providers Care Brim Blocker Name Role Phone Unavailable Primary Care Provider [...] molar Kirstie Aden PA-C [address] [place] [address] Referral ID Status Reason Start Date Expiration Date Visits Requested Visits Authorized [id number] Pending Review Specialty Services Required 01/22/[phone] Encounter Details Date Type Department Care Team Description 04/05/2023 Office Visit Logging Crew Supervisor Obstetrics Maternal Medicine, [place] [address] [place], [place] [phone] Trice Ruiz, [address] [place] [address] Mayco Barnett, [place] [address] [address] History of loop electrosurgical excision procedure (LEEP) [...] 32-36 weeks gestation. We recommend alerting the instrument technician providing care of this finding if it [...] 32-36 weeks gestation. We recommend alerting the instrument technician providing care of this finding if it [...] 32-36 weeks gestation. We recommend alerting the instrument technician providing care of this finding if it [...] Backer, MC [place] [address] [place] [address] 06/28/2023 Imaging Radiology Scheduled Referrals Name Type [...]
--- OUTSIDE RECORDS SUMMARY | 2023-08-21 13:05 | External Medical Summary | Summary of Care ---
Author Name Unknown Organization [facility] Address [address] [place] [address] Phone [phone] Care Team Providers Care Hat Model Name Role Phone Unavailable Primary Care Provider Unavailabl e Reason for Visit * Reason Comments Outpatient Testing Encounter Details Date Type Department Care Team Description 03/14/2023 Laboratory Laboratory, [facility] [address] [place] [address] [facility] [address] [place] [address] Arrived Allergies Active Allergy Reactions Severity Noted Date [...] Maternal Medicine Trice Ruiz, DO [address] [place] [address] Shira Garcia, MS [address] [place] [address] 04/05/2023 Imaging Radiology 04/11/2023 Office Visit Gynecology Obstetrics Backer, [facility] [address] [place] [address] Health Maintenance Due Date Last Done Comments [...]
--- NOTE | 2023-08-21 13:23 | Labor Progress Brief Note ---
Date of Service August 21, 2023 Assessment & Plan Admission and Anticipated Discharge Date Admission Date: August 21, 2023 Physical Exam Genitourinary: OB Exam Monitor Tracing: + external FHT monitor used, + external uterine monitor used, + category I and + normal FHT variability Cervidil 10 mg placed vaginally Results & Data Vital Signs (Past 12 Hours) Vital Signs Temp Pulse Resp BP 08/21/23 13:15 71 142/87 H 08/21/23 13:14 68 141/97 H 08/21/23 13:00 68 147/72 H 08/21/23 10:12 86 128/83 08/21/23 10:12 36.9 C 18
[2023-08-21] MEDS ORDERED: miSOPROStoL 50 MCG TAB PO PRN (19:00)
[2023-08-22] MEDS ORDERED: OXYTOCIN 30 UNITS/NSS 30 UNITS/500 ML BAG IV PRN (09:55)
--- NOTE | 2023-08-22 09:55 | Obstetrical Progress Note ---
Date of Service August 22, 2023 Assessment & Plan (1) Mild preeclampsia: Plan: pt admitted for elevated BP and proteinuria Induction day #2 Pt received Cervidil and Cytotec FHR; CAT1 Ctx Minimal VE; cl/post/thick Fraga bulb placed w/o difficulty starting Pitocin augmentation' plan agreed to by pt and family Admission and Anticipated Discharge Date Admission Date: August 21, 2023 Results & Data Vital Signs (Past 12 Hours) Vital Signs Temp Pulse Resp BP 08/22/23 09:48 70 168/90 H 08/22/23 02:37 36.5 C 70 18 151/77 H 08/21/23 23:43 36.6 C 74 16 142/72 H
[2023-08-22] MEDS: LACTATED RINGER'S 1,000 ML IV PRN ×3 (11:00→21:20)
[2023-08-22] MEDS ORDERED: ePHEDrine sulfate 50 MG/ML AMP ONE (11:54)
[2023-08-22] MEDS ORDERED: fentaNYL citrate PF 100 MCG/2 ML VIAL ONE (11:54)
[2023-08-22] MEDS ORDERED: SODIUM CHLORIDE 0.9% PF INJ 10 ML VIAL ONE (11:54)
[2023-08-22] MEDS ORDERED: LIDOCAINE 2% MPF LOCAL 5 ML VIAL EPI PRN (11:55)
[2023-08-22] MEDS ORDERED: BUPIVACAINE 0.25% PF 30 ML VIAL ONE (11:55)
[2023-08-22] MEDS ORDERED: fentaNYL citrate PF 100 MCG/2 ML VIAL EPI STA (11:55)
[2023-08-22] MEDS ORDERED: LIDOCAINE 2%/EPINEPHRINE 1:200,000 20 ML PF EPI STA (11:55)
[2023-08-22] MEDS ORDERED: fentaNYL citrate PF 100 MCG/2 ML VIAL EPI PRN (11:55)
[2023-08-22] MEDS ORDERED: diphenhydrAMINE 50 MG/ML VIAL IV PRN (11:55)
[2023-08-22] MEDS ORDERED: ROPIVACAINE 0.5% PF 5 MG/ML 20 ML VIAL EPI PRN (11:55)
[2023-08-22] MEDS ORDERED: NALOXONE HCL 0.4 MG/1 ML VIAL/CARP IV PRN (11:55)
[2023-08-22] MEDS ORDERED: NALOXONE HCL 1 MG in SODIUM CHLORIDE 0.9% 1,000 ML IV PRN (11:55)
[2023-08-22] MEDS ORDERED: NALBUPHINE HCL 5 MG in SYRINGE 0 ML IV PRN (11:55)
[2023-08-22] MEDS ORDERED: ePHEDrine sulfate 50 MG/ML AMP IV PRN (11:55)
[2023-08-22] MEDS ORDERED: BUPIVACAINE 0.25% PF 30 ML VIAL EPI PRN (11:55)
[2023-08-22] MEDS ORDERED: SODIUM CHLORIDE 0.9% PF INJ 10 ML VIAL EPI STA (11:55)
[2023-08-22] MEDS ORDERED: SODIUM CHLORIDE 0.9% PF INJ 10 ML VIAL EPI PRN (11:55)
[2023-08-22] MEDS ORDERED: fentANYL 2 MCG/ML BUPIVacaine 0.125%-NSS 100ML BAG ONE (11:55)
[2023-08-22] MEDS ORDERED: LIDOCAINE 2%/EPINEPHRINE 1:200,000 20 ML PF ONE (11:55)
[2023-08-22] MEDS ORDERED: BUPIVACAINE 0.25% PF 30 ML VIAL EPI STA (11:55)
--- NOTE | 2023-08-22 11:56 | Anesthesiology Consultation ---
Date of Service August 22, 2023 Assessment & Plan (1) Encounter for pre-operative examination: Chart Review Chart Review: Patient NOT seen in Pre Admission Testing and Acceptable Risk for Labor Epidural Consults Requested none History Height/Weight Height: 5 ft Weight: 62.596 kg Allergies Allergy/AdvReac Type Severity Reaction Status Date / Time amoxicillin Allergy Rash Verified 08/04/20 14:50 Medications Home Medications Medication Instructions Recorded Confirmed Last Taken vits [id number] fum 1 tab PO DAILY 08/21/23 08/21/23 Unknown 27 mg iron-folic acid 800 mcg tablet ( Vitamin) Active Medications Generic Name Dose Route Start Last Admin Trade Name Freq PRN Reason Stop Dose Admin Lactated Ringer's 1,000 mls @ 125 mls/hr 08/21/23 10:40 08/22/23 11:00 Lr IV 08/23/23 10:39 999 mls/hr .Q8H PRN Administration L&D Protocol Protocol Oxytocin 30 units in 500 mls @ 2 mls/hr 08/22/23 09:55 08/22/23 11:37 Pitocin 30 Units/Nss IV 08/24/23 09:54 0.12 units/hr .Q24H PRN 2 mls/hr Labor Induction/Augmentation Administration Protocol 0.12 UNITS/HR Misoprostol 50 mcg 08/21/23 19:00 08/22/23 02:36 Misoprostol 50 Mcg Tab PO 09/20/23 18:59 50 mcg Q4 PRN Administration Uterine Cramping Past Medical History Medical History Mood disorder Past Surgical History Surgical History No pertinent past surgical history Social History Smoking Status: Never smoker Hx Alcohol Use: No Hx Substance Use: No Physical Exam Vital Signs Last Vital Signs Temp 97.7 F 08/22/23 02:37 Pulse 72 08/22/23 11:17 Resp 18 08/22/23 02:37 BP 174/86 H 08/22/23 11:17 Testing Laboratory Results 08/21/23 10:47 08/21/23 10:47
[2023-08-22] MEDS: fentANYL 2 MCG/ML BUPIVacaine 0.125%-NSS 100ML BAG EPI PRN ×2 (12:14→21:12)
--- NOTE | 2023-08-22 18:58 | Obstetrical Progress Note ---
Date of Service August 22, 2023 Assessment & Plan (1) Mild preeclampsia: Plan: Pt doing well FHR; CAT1 Ctx 2-4 mins Pit; 12mu VE; 4/50/-1 AROM with amnio hook- clear fluid PIH labs ordered Admission and Anticipated Discharge Date Admission Date: August 21, 2023 Results & Data Vital Signs (Past 12 Hours) Vital Signs Temp Pulse BP Pulse Ox 08/22/23 18:54 82 97 08/22/23 18:49 78 97 08/22/23 18:44 83 98 08/22/23 18:43 93 H 177/98 H 08/22/23 18:39 82 97 08/22/23 18:34 79 96 08/22/23 18:29 102 H 99 08/22/23 18:28 70 142/81 H 08/22/23 18:24 89 98 08/22/23 18:19 77 97 08/22/23 18:14 76 97 08/22/23 18:12 75 138/75 08/22/23 18:09 72 97 08/22/23 18:04 74 97 08/22/23 17:59 79 97 08/22/23 17:57 75 142/79 H 08/22/23 17:54 73 97 08/22/23 17:49 68 97 08/22/23 17:44 70 97 08/22/23 17:43 71 146/85 H 08/22/23 17:39 69 97 08/22/23 17:34 68 97 08/22/23 17:29 65 99 08/22/23 17:28 36.6 C 67 166/93 H 08/22/23 17:24 82 99 08/22/23 17:19 82 97 08/22/23 17:14 81 96 08/22/23 17:11 75 145/94 H 08/22/23 17:09 75 96 08/22/23 17:04 76 97 08/22/23 16:59 74 97 08/22/23 16:56 76 146/94 H 08/22/23 16:54 85 96 08/22/23 16:49 77 96 08/22/23 16:44 77 96 08/22/23 16:42 75 135/94 08/22/23 16:39 76 97 08/22/23 16:34 86 96 08/22/23 16:29 81 97 08/22/23 16:28 77 141/92 H 08/22/23 16:24 81 97 08/22/23 16:19 74 97 08/22/23 16:14 77 97 08/22/23 16:11 80 136/90 08/22/23 16:09 77 97 08/22/23 16:04 73 96 08/22/23 15:59 80 96 08/22/23 15:56 88 141/90 H 08/22/23 15:54 79 97 08/22/23 15:49 78 96 08/22/23 15:44 79 97 08/22/23 15:43 77 153/94 H 08/22/23 15:39 75 97 08/22/23 15:34 65 98 08/22/23 15:30 36.6 C 08/22/23 15:29 71 99 08/22/23 15:28 68 173/97 H 08/22/23 15:24 74 98 08/22/23 15:19 73 96 08/22/23 15:14 84 97 08/22/23 15:12 71 135/82 08/22/23 15:09 65 97 08/22/23 15:04 73 97 08/22/23 14:59 74 97 08/22/23 14:57 71 133/81 08/22/23 14:54 69 97 08/22/23 14:49 67 97 08/22/23 14:44 78 97 08/22/23 14:42 71 141/83 H 08/22/23 14:39 74 96 08/22/23 14:34 85 97 08/22/23 14:29 84 97 08/22/23 14:26 80 147/81 H 08/22/23 14:24 104 H 97 08/22/23 14:19 64 97 08/22/23 14:14 105 H 96 08/22/23 14:12 75 138/77 08/22/23 14:09 70 97 08/22/23 14:04 82 97 08/22/23 13:59 72 97 08/22/23 13:58 77 133/81 08/22/23 13:54 73 97 08/22/23 13:49 87 96 08/22/23 13:44 69 97 08/22/23 13:43 79 123/77 08/22/23 13:39 82 98 08/22/23 13:34 74 97 08/22/23 13:29 85 97 08/22/23 13:26 85 123/86 08/22/23 13:24 81 98 08/22/23 13:19 74 97 08/22/23 13:14 88 98 08/22/23 13:11 36.9 C 85 124/85 08/22/23 13:09 77 97 08/22/23 13:07 78 134/92 08/22/23 13:04 83 98 08/22/23 13:02 82 126/90 08/22/23 12:59 81 98 08/22/23 12:56 72 142/93 H 08/22/23 12:54 84 98 08/22/23 12:51 83 134/91 08/22/23 12:49 77 97 08/22/23 12:46 70 142/86 H 08/22/23 12:44 90 98 08/22/23 12:41 81 127/86 08/22/23 12:39 86 98 08/22/23 12:36 83 122/81 08/22/23 12:34 76 99 08/22/23 12:32 69 132/82 08/22/23 12:29 78 99 08/22/23 12:26 69 124/83 08/22/23 12:24 71 98 08/22/23 12:20 75 126/79 08/22/23 12:19 96 H 99 08/22/23 12:15 79 92 08/22/23 12:14 76 97 08/22/23 12:12 69 153/65 H 08/22/23 12:09 75 98 08/22/23 12:05 75 177/104 H 08/22/23 12:04 73 99 08/22/23 11:17 72 174/86 H 08/22/23 09:48 70 168/90 H
[2023-08-22 19:45] LABS: Basophils # (auto) 0.04 K/uL (0.00-0.20); Basophils % (auto) 0.3 %; Eosinophils # (auto) 0.01 K/uL (0.00-0.50); Eosinophils % (auto) 0.1 %; Hematocrit (blood only) 36.5 % (37.0-47.0); Immature Granulocytes # (auto) 0.12 K/uL (0.01-0.20); Lymphocytes # (auto) 1.64 K/uL (1.20-3.40); Lymphocytes % (auto) 14.1 %; Mean Corpuscular Hemoglobin 27.8 pg (25.0-34.0); Mean Corpuscular Hgb Conc 32.9 g/dL (32.0-36.0); Mean Corpuscular Volume 84.5 fL (80.0-100.0); Mean Platelet Volume 11.5 fL (9.4-12.4); Monocytes % (auto) 4.3 %; Neutrophils # (auto) 9.35 K/uL (1.40-6.50); Neutrophils % (auto) 80.2 %; Platelet Count 164 K/uL (130-400); RDW Coefficient of Variation 16.2 % (11.5-14.5); RDW Standard Deviation 49.8 fL (36.4-46.3); Red Blood Count 4.32 M/uL (4.20-5.40); White Blood Count 11.66 K/ul (4.8-10.8)
[2023-08-22 20:03] LABS: Albumin Globulin Ratio 1.2 (0.9-2); BUN Creatinine Ratio 13.1 (10-20); Bilirubin,Total 0.3 mg/dl (0.2-1.0); Calcium 8.8 mg/dl (8.6-10.3); Creatinine Clr Calc Pharmacy 81.6 ml/min; Est GFR (African American) 108.9 ml/min; Est GFR (Non-African American) 93.9 ml/min; Globulin 2.6 gm/dl (2.5-4.0); Potassium 4.3 mmol/L (3.5-5.1); Total Protein 5.6 gm/dl (6.0-8.3)
[2023-08-22] MEDS ORDERED: MAG SULFATE 4GM BOLUS FROM BAG IV ONE (20:32)
[2023-08-22] MEDS: MAGNESIUM SULFATE / WTR 40 GM/1,000 ML BAG IV SCH (21:50)
--- NOTE | 2023-08-22 23:22 | Obstetrical Progress Note ---
Date of Service August 22, 2023 Assessment & Plan (1) Mild preeclampsia: Plan: On arrival pt was pushing with nurse FHR showed dep variables and late decels VE; 10/100/+1 Pushing was stopped and Pitocin d/sunil FHR returned to 150's and CAT1 Plan No pushing for now Will consider passive descent continue to monitor FHR Admission and Anticipated Discharge Date Admission Date: August 21, 2023 Results & Data Vital Signs (Past 12 Hours) Vital Signs Temp Pulse Resp BP Pulse Ox 08/22/23 23:14 98 H 98 08/22/23 23:13 100 H 174/97 H 08/22/23 23:09 95 H 100 08/22/23 23:04 96 08/22/23 23:04 97 H 08/22/23 23:04 95 H 92 08/22/23 22:59 112 H 96 08/22/23 22:56 105 H 125/68 08/22/23 22:54 104 H 97 08/22/23 22:49 111 H 98 08/22/23 22:44 110 H 98 08/22/23 22:40 103 H 94 08/22/23 22:39 81 96 08/22/23 22:34 90 99 08/22/23 22:30 18 08/22/23 22:30 18 08/22/23 22:30 18 08/22/23 22:29 89 99 08/22/23 22:26 92 H 153/97 H 08/22/23 22:24 93 H 99 08/22/23 22:19 90 100 08/22/23 22:14 97 H 100 08/22/23 22:12 108 H 156/112 H 08/22/23 22:09 107 H 100 08/22/23 22:04 95 H 99 08/22/23 22:00 18 08/22/23 22:00 37.0 C 18 08/22/23 21:59 100 H 97 08/22/23 21:55 93 H 93 08/22/23 21:54 74 99 08/22/23 21:49 79 98 08/22/23 21:44 85 98 08/22/23 21:43 81 147/82 H 08/22/23 21:39 94 H 96 08/22/23 21:34 102 H 94 08/22/23 21:33 130 H 93 08/22/23 21:30 18 08/22/23 21:30 18 08/22/23 21:30 18 08/22/23 21:29 79 96 08/22/23 21:27 77 144/74 H 08/22/23 21:24 72 96 08/22/23 21:19 79 96 08/22/23 21:14 75 97 08/22/23 21:12 73 191/84 H 08/22/23 21:09 75 97 08/22/23 21:04 76 98 08/22/23 21:00 18 08/22/23 21:00 18 08/22/23 20:59 76 99 08/22/23 20:57 68 174/84 H 08/22/23 20:54 73 97 08/22/23 20:49 72 97 08/22/23 20:44 96 08/22/23 20:44 77 08/22/23 20:44 75 154/102 H 08/22/23 20:39 73 98 08/22/23 20:34 96 H 98 08/22/23 20:29 78 98 08/22/23 20:26 83 158/96 H 08/22/23 20:24 94 H 97 08/22/23 20:19 88 98 08/22/23 20:14 72 96 08/22/23 20:12 69 172/96 H 08/22/23 20:09 75 97 08/22/23 20:04 83 98 08/22/23 20:00 20 08/22/23 20:00 20 08/22/23 19:59 71 98 08/22/23 19:58 84 142/98 H 08/22/23 19:54 71 98 08/22/23 19:49 70 98 08/22/23 19:44 98 08/22/23 19:44 72 08/22/23 19:44 71 182/102 H 08/22/23 19:39 77 98 08/22/23 19:34 74 97 08/22/23 19:30 18 08/22/23 19:30 36.7 C 18 08/22/23 19:29 77 97 08/22/23 19:27 76 154/79 H 08/22/23 19:24 74 97 08/22/23 19:19 97 08/22/23 19:19 94 H 08/22/23 19:19 108 H 93 08/22/23 19:14 97 08/22/23 19:14 77 08/22/23 19:14 73 138/93 08/22/23 19:09 79 97 08/22/23 19:04 94 H 96 08/22/23 18:59 81 97 08/22/23 18:57 80 143/91 H 08/22/23 18:54 82 97 08/22/23 18:49 78 97 08/22/23 18:44 83 98 08/22/23 18:43 93 H 177/98 H 08/22/23 18:39 82 97 08/22/23 18:34 79 96 08/22/23 18:29 102 H 99 08/22/23 18:28 70 142/81 H 08/22/23 18:24 89 98 08/22/23 18:19 77 97 08/22/23 18:14 76 97 08/22/23 18:12 75 138/75 08/22/23 18:09 72 97 08/22/23 18:04 74 97 08/22/23 17:59 79 97 08/22/23 17:57 75 142/79 H 08/22/23 17:54 73 97 08/22/23 17:49 68 97 08/22/23 17:44 70 97 08/22/23 17:43 71 146/85 H 08/22/23 17:39 69 97 08/22/23 17:34 68 97 08/22/23 17:29 65 99 08/22/23 17:28 36.6 C 67 166/93 H 08/22/23 17:24 82 99 08/22/23 17:19 82 97 08/22/23 17:14 81 96 08/22/23 17:11 75 145/94 H 08/22/23 17:09 75 96 08/22/23 17:04 76 97 08/22/23 16:59 74 97 08/22/23 16:56 76 146/94 H 08/22/23 16:54 85 96 08/22/23 16:49 77 96 08/22/23 16:44 77 96 08/22/23 16:42 75 135/94 08/22/23 16:39 76 97 08/22/23 16:34 86 96 08/22/23 16:29 81 97 08/22/23 16:28 77 141/92 H 08/22/23 16:24 81 97 08/22/23 16:19 74 97 08/22/23 16:14 77 97 08/22/23 16:11 80 136/90 08/22/23 16:09 77 97 08/22/23 16:04 73 96 08/22/23 15:59 80 96 08/22/23 15:56 88 141/90 H 08/22/23 15:54 79 97 08/22/23 15:49 78 96 08/22/23 15:44 79 97 08/22/23 15:43 77 153/94 H 08/22/23 15:39 75 97 08/22/23 15:34 65 98 08/22/23 15:30 36.6 C 08/22/23 15:29 71 99 08/22/23 15:28 68 173/97 H 08/22/23 15:24 74 98 08/22/23 15:19 73 96 08/22/23 15:14 84 97 08/22/23 15:12 71 135/82 08/22/23 15:09 65 97 08/22/23 15:04 73 97 08/22/23 14:59 74 97 08/22/23 14:57 71 133/81 08/22/23 14:54 69 97 08/22/23 14:49 67 97 08/22/23 14:44 78 97 08/22/23 14:42 71 141/83 H 08/22/23 14:39 74 96 08/22/23 14:34 85 97 08/22/23 14:29 84 97 08/22/23 14:26 80 147/81 H 08/22/23 14:24 104 H 97 08/22/23 14:19 64 97 08/22/23 14:14 105 H 96 08/22/23 14:12 75 138/77 08/22/23 14:09 70 97 08/22/23 14:04 82 97 08/22/23 13:59 72 97 08/22/23 13:58 77 133/81 08/22/23 13:54 73 97 08/22/23 13:49 87 96 08/22/23 13:44 69 97 08/22/23 13:43 79 123/77 08/22/23 13:39 82 98 08/22/23 13:34 74 97 08/22/23 13:29 85 97 08/22/23 13:26 85 123/86 08/22/23 13:24 81 98 08/22/23 13:19 74 97 08/22/23 13:14 88 98 08/22/23 13:11 36.9 C 85 124/85 08/22/23 13:09 77 97 08/22/23 13:07 78 134/92 08/22/23 13:04 83 98 08/22/23 13:02 82 126/90 08/22/23 12:59 81 98 08/22/23 12:56 72 142/93 H 08/22/23 12:54 84 98 08/22/23 12:51 83 134/91 08/22/23 12:49 77 97 08/22/23 12:46 70 142/86 H 08/22/23 12:44 90 98 08/22/23 12:41 81 127/86 08/22/23 12:39 86 98 08/22/23 12:36 83 122/81 08/22/23 12:34 76 99 08/22/23 12:32 69 132/82 08/22/23 12:29 78 99 08/22/23 12:26 69 124/83 08/22/23 12:24 71 98 08/22/23 12:20 75 126/79 08/22/23 12:19 96 H 99 08/22/23 12:15 79 92 08/22/23 12:14 76 97 08/22/23 12:12 69 153/65 H 08/22/23 12:09 75 98 08/22/23 12:05 75 177/104 H 08/22/23 12:04 73 99
--- NOTE | 2023-08-23 02:46 | Obstetrical Progress Note ---
Date of Service August 23, 2023 Assessment & Plan (1) Mild preeclampsia: Plan: Pt pushed for 2,5 hrs VE; 10/2+ Maternal exhaustion Pit 10mu Plan will rest Mother and resume pushing in 1hr Admission and Anticipated Discharge Date Admission Date: August 21, 2023 Results & Data Vital Signs (Past 12 Hours) Vital Signs Temp Pulse Resp BP Pulse Ox 08/23/23 02:43 98 H 96 08/23/23 02:41 96 H 165/91 H 08/23/23 02:30 18 08/23/23 02:30 18 08/23/23 02:30 18 08/23/23 02:27 104 H 166/89 H 08/23/23 02:24 101 H 94 08/23/23 02:21 101 H 84 L 08/23/23 02:18 117 H 93 08/23/23 02:16 104 H 96 08/23/23 02:11 106 H 147/91 H 99 08/23/23 02:09 107 H 91 08/23/23 02:06 120 H 93 08/23/23 02:01 109 H 94 08/23/23 01:56 106 H 144/95 H 94 08/23/23 01:55 109 H 93 08/23/23 01:51 119 H 92 08/23/23 01:47 104 H 90 08/23/23 01:46 106 H 96 08/23/23 01:42 109 H 147/91 H 08/23/23 01:41 94 08/23/23 01:41 112 H 08/23/23 01:41 131 H 87 L 08/23/23 01:36 108 H 83 L 08/23/23 01:32 104 H 90 08/23/23 01:31 105 H 95 08/23/23 01:30 18 08/23/23 01:30 36.3 C L 18 08/23/23 01:27 110 H 94 08/23/23 01:26 106 H 146/87 H 95 08/23/23 01:21 106 H 97 08/23/23 01:16 108 H 95 08/23/23 01:12 104 H 154/88 H 08/23/23 01:11 104 H 94 08/23/23 01:06 105 H 96 08/23/23 01:01 98 H 95 08/23/23 01:00 98 H 18 91 08/23/23 00:56 89 169/100 H 96 08/23/23 00:53 103 H 94 08/23/23 00:51 102 H 94 08/23/23 00:47 113 H 94 08/23/23 00:46 111 H 95 08/23/23 00:42 96 H 174/107 H 08/23/23 00:41 97 H 95 08/23/23 00:40 97 H 94 08/23/23 00:36 109 H 100 08/23/23 00:31 92 H 97 08/23/23 00:30 36.9 C 106 H 18 93 08/23/23 00:26 93 H 94 08/23/23 00:24 102 H 93 08/23/23 00:21 94 H 95 08/23/23 00:19 95 H 94 08/23/23 00:16 103 H 97 08/23/23 00:13 95 H 142/81 H 94 08/23/23 00:09 92 H 96 08/23/23 00:04 97 H 94 08/23/23 00:02 89 88 L 08/23/23 00:00 18 08/23/23 00:00 18 08/22/23 23:59 88 65 L 08/22/23 23:57 86 135/66 08/22/23 23:56 89 86 L 08/22/23 23:54 90 97 08/22/23 23:49 98 H 83 L 08/22/23 23:48 111 H 93 08/22/23 23:44 93 H 98 08/22/23 23:41 95 H 169/95 H 08/22/23 23:39 98 23 23:39 93 H 08/22/23 23:39 93 H 89 L 08/22/23 23:34 96 H 98 08/22/23 23:30 18 08/22/23 23:30 18 08/22/23 23:29 101 H 99 08/22/23 23:27 99 H 184/91 H 23 23:24 97 H 97 08/22/23 23:19 98 H 100 08/22/23 23:14 98 H 98 08/22/23 23:13 100 H 174/97 H 23 23:09 95 H 100 08/22/23 23:04 96 08/22/23 23:04 97 H 08/22/23 23:04 95 H 92 08/22/23 22:59 112 H 96 08/22/23 22:56 105 H 125/68 08/22/23 22:54 104 H 97 08/22/23 22:49 111 H 98 08/22/23 22:44 110 H 98 08/22/23 22:40 103 H 94 08/22/23 22:39 81 96 08/22/23 22:34 90 99 08/22/23 22:30 18 08/22/23 22:30 18 08/22/23 22:30 18 08/22/23 22:29 89 99 08/22/23 22:26 92 H 153/97 H 08/22/23 22:24 93 H 99 08/22/23 22:19 90 100 08/22/23 22:14 97 H 100 08/22/23 22:12 108 H 156/112 H 08/22/23 22:09 107 H 100 08/22/23 22:04 95 H 99 08/22/23 22:00 18 08/22/23 22:00 37.0 C 18 08/22/23 21:59 100 H 97 08/22/23 21:55 93 H 93 08/22/23 21:54 74 99 08/22/23 21:49 79 98 08/22/23 21:44 85 98 08/22/23 21:43 81 147/82 H 08/22/23 21:39 94 H 96 08/22/23 21:34 102 H 94 08/22/23 21:33 130 H 93 08/22/23 21:30 18 08/22/23 21:30 18 08/22/23 21:30 18 08/22/23 21:29 79 96 2223 21:27 77 144/74 H 08/22/23 21:24 72 96 08/22/23 21:19 79 96 08/22/23 21:14 75 97 08/22/23 21:12 73 191/84 H 08/22/23 21:09 75 97 08/22/23 21:04 76 98 22 21:00 18 08/22/23 21:00 18 22 20:59 76 99 08/22/23 20:57 68 174/84 H 08/22/23 20:54 73 97 08/22/23 20:49 72 97 08/22/23 20:44 96 08/22/23 20:44 77 08/22/23 20:44 75 154/102 H 08/22/23 20:39 73 98 08/22/23 20:34 96 H 98 08/22/23 20:29 78 98 08/22/23 20:26 83 158/96 H 08/22/23 20:24 94 H 97 08/22/23 20:19 88 98 08/22/23 20:14 72 96 08/22/23 20:12 69 172/96 H 08/22/23 20:09 75 97 08/22/23 20:04 83 98 08/22/23 20:00 20 08/22/23 20:00 20 08/22/23 19:59 71 98 08/22/23 19:58 84 142/98 H 08/22/23 19:54 71 98 08/22/23 19:49 70 98 08/22/23 19:44 98 08/22/23 19:44 72 08/22/23 19:44 71 182/102 H 08/22/23 19:39 77 98 08/22/23 19:34 74 97 08/22/23 19:30 18 08/22/23 19:30 36.7 C 18 08/22/23 19:29 77 97 08/22/23 19:27 76 154/79 H 08/22/23 19:24 74 97 08/22/23 19:19 97 08/22/23 19:19 94 H 08/22/23 19:19 108 H 93 08/22/23 19:14 97 08/22/23 19:14 77 08/22/23 19:14 73 138/93 08/22/23 19:09 79 97 08/22/23 19:04 94 H 96 08/22/23 18:59 81 97 08/22/23 18:57 80 143/91 H 08/22/23 18:54 82 97 08/22/23 18:49 78 97 08/22/23 18:44 83 98 08/22/23 18:43 93 H 177/98 H 08/22/23 18:39 82 97 08/22/23 18:34 79 96 08/22/23 18:29 102 H 99 08/22/23 18:28 70 142/81 H 08/22/23 18:24 89 98 08/22/23 18:19 77 97 08/22/23 18:14 76 97 08/22/23 18:12 75 138/75 08/22/23 18:09 72 97 08/22/23 18:04 74 97 08/22/23 17:59 79 97 08/22/23 17:57 75 142/79 H 08/22/23 17:54 73 97 08/22/23 17:49 68 97 08/22/23 17:44 70 97 08/22/23 17:43 71 146/85 H 08/22/23 17:39 69 97 08/22/23 17:34 68 97 08/22/23 17:29 65 99 08/22/23 17:28 36.6 C 67 166/93 H 08/22/23 17:24 82 99 08/22/23 17:19 82 97 08/22/23 17:14 81 96 08/22/23 17:11 75 145/94 H 08/22/23 17:09 75 96 08/22/23 17:04 76 97 08/22/23 16:59 74 97 08/22/23 16:56 76 146/94 H 08/22/23 16:54 85 96 08/22/23 16:49 77 96 08/22/23 16:44 77 96 08/22/23 16:42 75 135/94 08/22/23 16:39 76 97 08/22/23 16:34 86 96 08/22/23 16:29 81 97 08/22/23 16:28 77 141/92 H 08/22/23 16:24 81 97 08/22/23 16:19 74 97 08/22/23 16:14 77 97 08/22/23 16:11 80 136/90 08/22/23 16:09 77 97 08/22/23 16:04 73 96 08/22/23 15:59 80 96 08/22/23 15:56 88 141/90 H 08/22/23 15:54 79 97 08/22/23 15:49 78 96 08/22/23 15:44 79 97 08/22/23 15:43 77 153/94 H 08/22/23 15:39 75 97 08/22/23 15:34 65 98 08/22/23 15:30 36.6 C 08/22/23 15:29 71 99 08/22/23 15:28 68 173/97 H 08/22/23 15:24 74 98 08/22/23 15:19 73 96 08/22/23 15:14 84 97 08/22/23 15:12 71 135/82 08/22/23 15:09 65 97 08/22/23 15:04 73 97 08/22/23 14:59 74 97 08/22/23 14:57 71 133/81 08/22/23 14:54 69 97 08/22/23 14:49 67 97
--- NOTE | 2023-08-23 04:16 | Obstetrical Progress Note ---
Date of Service August 23, 2023 Assessment & Plan (1) Mild preeclampsia: Plan: Pt wishes to have c/sec discussed and reviewed c/sec risk,benefits and complications VE; unchanged, OP presentation off Pitocin consent obtained Admission and Anticipated Discharge Date Admission Date: August 21, 2023 Results & Data Vital Signs (Past 12 Hours) Vital Signs Temp Pulse Resp BP Pulse Ox 08/23/23 04:12 117 H 140/94 08/23/23 04:08 108 H 98 08/23/23 04:03 106 H 99 08/23/23 03:58 100 H 99 08/23/23 03:56 100 H 151/86 H 08/23/23 03:53 103 H 99 08/23/23 03:48 102 H 99 08/23/23 03:43 113 H 98 08/23/23 03:41 109 H 170/107 H 08/23/23 03:38 115 H 94 08/23/23 03:34 114 H 94 08/23/23 03:33 116 H 93 08/23/23 03:30 16 08/23/23 03:28 116 H 94 08/23/23 03:26 115 H 160/102 H 08/23/23 03:24 115 H 94 08/23/23 03:23 114 H 94 08/23/23 03:18 114 H 94 08/23/23 03:16 113 H 94 08/23/23 03:13 114 H 94 08/23/23 03:12 113 H 163/105 H 08/23/23 03:10 110 H 94 08/23/23 03:08 116 H 95 08/23/23 03:03 112 H 96 08/23/23 03:00 18 08/23/23 03:00 18 08/23/23 02:58 110 H 151/98 H 96 08/23/23 02:53 105 H 97 08/23/23 02:48 97 H 97 08/23/23 02:43 98 H 96 08/23/23 02:41 96 H 165/91 H 08/23/23 02:30 18 08/23/23 02:30 18 08/23/23 02:30 18 08/23/23 02:27 104 H 166/89 H 08/23/23 02:24 101 H 94 08/23/23 02:21 101 H 84 L 08/23/23 02:18 117 H 93 08/23/23 02:16 104 H 96 08/23/23 02:11 106 H 147/91 H 99 08/23/23 02:09 107 H 91 08/23/23 02:06 120 H 93 08/23/23 02:01 109 H 94 08/23/23 01:56 106 H 144/95 H 94 08/23/23 01:55 109 H 93 08/23/23 01:51 119 H 92 08/23/23 01:47 104 H 90 08/23/23 01:46 106 H 96 08/23/23 01:42 109 H 147/91 H 08/23/23 01:41 94 08/23/23 01:41 112 H 08/23/23 01:41 131 H 87 L 08/23/23 01:36 108 H 83 L 08/23/23 01:32 104 H 90 08/23/23 01:31 105 H 95 08/23/23 01:30 18 08/23/23 01:30 36.3 C L 18 08/23/23 01:27 110 H 94 08/23/23 01:26 106 H 146/87 H 95 08/23/23 01:21 106 H 97 08/23/23 01:16 108 H 95 08/23/23 01:12 104 H 154/88 H 08/23/23 01:11 104 H 94 08/23/23 01:06 105 H 96 08/23/23 01:01 98 H 95 08/23/23 01:00 98 H 18 91 08/23/23 00:56 89 169/100 H 96 08/23/23 00:53 103 H 94 08/23/23 00:51 102 H 94 08/23/23 00:47 113 H 94 08/23/23 00:46 111 H 95 08/23/23 00:42 96 H 174/107 H 08/23/23 00:41 97 H 95 08/23/23 00:40 97 H 94 08/23/23 00:36 109 H 100 08/23/23 00:31 92 H 97 08/23/23 00:30 36.9 C 106 H 18 93 08/23/23 00:26 93 H 94 08/23/23 00:24 102 H 93 08/23/23 00:21 94 H 95 08/23/23 00:19 95 H 94 08/23/23 00:16 103 H 97 08/23/23 00:13 95 H 142/81 H 94 08/23/23 00:09 92 H 96 08/23/23 00:04 97 H 94 08/23/23 00:02 89 88 L 08/23/23 00:00 18 08/23/23 00:00 18 08/22/23 23:59 88 65 L 08/22/23 23:57 86 135/66 08/22/23 23:56 89 86 L 08/22/23 23:54 90 97 08/22/23 23:49 98 H 83 L 08/22/23 23:48 111 H 93 08/22/23 23:44 93 H 98 23 23:41 95 H 169/95 H 23 23:39 98 23 23:39 93 H 23 23:39 93 H 89 L 08/22/23 23:34 96 H 98 08/22/23 23:30 18 08/22/23 23:30 18 08/22/23 23:29 101 H 99 23 23:27 99 H 184/91 H 23 23:24 97 H 97 23 23:19 98 H 100 08/22/23 23:14 98 H 98 08/22/23 23:13 100 H 174/97 H 23 23:09 95 H 100 23 23:04 96 08/22/23 23:04 97 H 08/22/23 23:04 95 H 92 23 22:59 112 H 96 23 22:56 105 H 125/68 23 22:54 104 H 97 2223 22:49 111 H 98 2223 22:44 110 H 98 2223 22:40 103 H 94 2223 22:39 81 96 22/23 22:34 90 99 22/23 22:30 18 22/23 22:30 18 22/23 22:30 18 2223 22:29 89 99 22/23 22:26 92 H 153/97 H 22/23 22:24 93 H 99 08/22/23 22:19 90 100 08/22/23 22:14 97 H 100 08/22/23 22:12 108 H 156/112 H 08/22/23 22:09 107 H 100 08/22/23 22:04 95 H 99 08/22/23 22:00 18 08/22/23 22:00 37.0 C 18 08/22/23 21:59 100 H 97 08/22/23 21:55 93 H 93 08/22/23 21:54 74 99 08/22/23 21:49 79 98 08/22/23 21:44 85 98 08/22/23 21:43 81 147/82 H 08/22/23 21:39 94 H 96 08/22/23 21:34 102 H 94 08/22/23 21:33 130 H 93 08/22/23 21:30 18 08/22/23 21:30 18 08/22/23 21:30 18 08/22/23 21:29 79 96 08/22/23 21:27 77 144/74 H 08/22/23 21:24 72 96 08/22/23 21:19 79 96 08/22/23 21:14 75 97 08/22/23 21:12 73 191/84 H 08/22/23 21:09 75 97 08/22/23 21:04 76 98 08/22/23 21:00 18 08/22/23 21:00 18 08/22/23 20:59 76 99 08/22/23 20:57 68 174/84 H 08/22/23 20:54 73 97 08/22/23 20:49 72 97 08/22/23 20:44 96 08/22/23 20:44 77 08/22/23 20:44 75 154/102 H 08/22/23 20:39 73 98 08/22/23 20:34 96 H 98 08/22/23 20:29 78 98 08/22/23 20:26 83 158/96 H 08/22/23 20:24 94 H 97 08/22/23 20:19 88 98 08/22/23 20:14 72 96 08/22/23 20:12 69 172/96 H 08/22/23 20:09 75 97 08/22/23 20:04 83 98 08/22/23 20:00 20 08/22/23 20:00 20 08/22/23 19:59 71 98 08/22/23 19:58 84 142/98 H 08/22/23 19:54 71 98 08/22/23 19:49 70 98 08/22/23 19:44 98 08/22/23 19:44 72 08/22/23 19:44 71 182/102 H 08/22/23 19:39 77 98 08/22/23 19:34 74 97 08/22/23 19:30 18 08/22/23 19:30 36.7 C 18 08/22/23 19:29 77 97 08/22/23 19:27 76 154/79 H 08/22/23 19:24 74 97 08/22/23 19:19 97 08/22/23 19:19 94 H 08/22/23 19:19 108 H 93 08/22/23 19:14 97 08/22/23 19:14 77 08/22/23 19:14 73 138/93 08/22/23 19:09 79 97 08/22/23 19:04 94 H 96 08/22/23 18:59 81 97 08/22/23 18:57 80 143/91 H 08/22/23 18:54 82 97 08/22/23 18:49 78 97 08/22/23 18:44 83 98 08/22/23 18:43 93 H 177/98 H 08/22/23 18:39 82 97 08/22/23 18:34 79 96 08/22/23 18:29 102 H 99 08/22/23 18:28 70 142/81 H 08/22/23 18:24 89 98 08/22/23 18:19 77 97 08/22/23 18:14 76 97 08/22/23 18:12 75 138/75 08/22/23 18:09 72 97 08/22/23 18:04 74 97 08/22/23 17:59 79 97 08/22/23 17:57 75 142/79 H 08/22/23 17:54 73 97 08/22/23 17:49 68 97 08/22/23 17:44 70 97 08/22/23 17:43 71 146/85 H 08/22/23 17:39 69 97 08/22/23 17:34 68 97 08/22/23 17:29 65 99 08/22/23 17:28 36.6 C 67 166/93 H 08/22/23 17:24 82 99 08/22/23 17:19 82 97 08/22/23 17:14 81 96 08/22/23 17:11 75 145/94 H 08/22/23 17:09 75 96 08/22/23 17:04 76 97 08/22/23 16:59 74 97 08/22/23 16:56 76 146/94 H 08/22/23 16:54 85 96 08/22/23 16:49 77 96 08/22/23 16:44 77 96 08/22/23 16:42 75 135/94 08/22/23 16:39 76 97 08/22/23 16:34 86 96 08/22/23 16:29 81 97 08/22/23 16:28 77 141/92 H 08/22/23 16:24 81 97 08/22/23 16:19 74 97
[2023-08-23] MEDS ORDERED: CITRIC ACID/SODIUM CITRATE 15 ML UDC PO STA (04:23)
[2023-08-23] MEDS ORDERED: cefOXitin 2,000 MG in DEXTROSE 5 % MINI-B 50 ML IV STA (04:23)
[2023-08-23] MEDS ORDERED: OXYTOCIN 10 UNITS/ML VIAL ONE (04:29)
[2023-08-23] MEDS ORDERED: KETOROLAC 30 MG/ML VIAL ONE (04:29)
[2023-08-23] MEDS ORDERED: ONDANSETRON INJ 2 MG/ML 2 ML VIAL ONE (04:29)
[2023-08-23] MEDS ORDERED: MoRPHine SULFATE PF 1 MG/ML 10 ML AMP/VIAL ONE (04:29)
[2023-08-23] MEDS ORDERED: LIDOCAINE 2%/EPINEPHRINE 1:200,000 20 ML PF ONE (04:29)
[2023-08-23] MEDS ORDERED: LACTATED RINGER'S 1,000 ML IV SCH ×2 (05:30→06:30)
[2023-08-23] MEDS ORDERED: METHYLERGONOVINE MALEATE 0.2 MG/ML AMP ONE (05:33)
[2023-08-23] MEDS ORDERED: VASOPRESSIN 20 UNIT/ML VIAL ONE (05:33)
[2023-08-23] MEDS ORDERED: SODIUM BICARBONATE 8.4% INJ 50 MEQ/50 ML VIAL ONE (05:33)
[2023-08-23] MEDS ORDERED: MoRPHine SULFATE PF 1 MG/ML 10 ML AMP/VIAL EPI ONE (05:34)
[2023-08-23] MEDS ORDERED: KETOROLAC 30 MG/ML VIAL IV PRN (05:34)
[2023-08-23] MEDS ORDERED: NALBUPHINE HCL 5 MG in SYRINGE 0 ML IV PRN (05:34)
[2023-08-23] MEDS ORDERED: PROMETHAZINE HCL 12.5 MG in SODIUM CHLORIDE 0.9% 50 ML IV PRN (05:34)
[2023-08-23] MEDS ORDERED: ACETAMINOPHEN 1,000 MG/100 ML VIAL IV PRN (05:34)
[2023-08-23] MEDS ORDERED: NALOXONE HCL 1 MG in SODIUM CHLORIDE 0.9% 1,000 ML IV PRN (05:34)
[2023-08-23] MEDS ORDERED: ePHEDrine sulfate 50 MG/ML AMP IV PRN (05:34)
[2023-08-23] MEDS ORDERED: HYDROmorphone INJ 0.5 MG/0.5 ML SYR IV PRN (05:34)
[2023-08-23] MEDS ORDERED: NALOXONE HCL 0.08 MG in SYRINGE 1.8 ML IV PRN (05:34)
[2023-08-23] MEDS ORDERED: diphenhydrAMINE 50 MG/ML VIAL IV PRN ×2 (05:34→06:18)
[2023-08-23] MEDS ORDERED: ONDANSETRON INJ 2 MG/ML 2 ML VIAL IV PRN ×2 (05:34→06:18)
[2023-08-23] MEDS ORDERED: LACTATED RINGER'S 500 ML IV PRN (05:34)
[2023-08-23] MEDS ORDERED: NALOXONE HCL 0.4 MG/1 ML VIAL/CARP IV PRN (05:34)
[2023-08-23] MEDS ORDERED: SODIUM CHLORIDE 0.9% 1,000 ML IV SCH (05:45)
[2023-08-23] MEDS ORDERED: NO NARCOTICS OR SEDATIVES SCH (05:45)
[2023-08-23] MEDS ORDERED: DC INTRASPINAL MORPHINE SCH (05:45)
[2023-08-23] MEDS ORDERED: diphenhydrAMINE Capsule 25 MG CAP PO PRN (06:18)
[2023-08-23] MEDS ORDERED: SENNA 8.6 MG TAB PO PRN (06:18)
[2023-08-23] MEDS ORDERED: BENZOCAINE 20% SPRY 85 APPLN/85 GM CAN EXT PRN (06:18)
[2023-08-23] MEDS ORDERED: HYDROCORTISONE ACETATE 25 MG SUPP PR PRN (06:18)
[2023-08-23] MEDS ORDERED: MAGNESIUM HYDROXIDE SUSP 30 ML UDC PO PRN (06:18)
[2023-08-23] MEDS ORDERED: DIPHTHERIA/TETANUS/PERTUSSIS Vaccine (Tdap, Age 7+yrs) 0.5mL SYR/VL IM ONE (06:18)
--- NOTE | 2023-08-23 06:24 | Anesthesia Procedure Note ---
Date of Service August 23, 2023 Anesthesia Post Epidural Note Vital Signs Vital Signs: Temp Pulse Resp BP Pulse Ox 98.1 F 94 H 18 118/65 97 08/23/23 04:30 08/23/23 06:22 08/23/23 04:30 08/23/23 06:18 08/23/23 06:22 Notes Mental Status: alert / awake / arousable and participated in evaluation Nausea / Vomiting: adequately controlled Pain: adequately controlled Airway Patency, RR, SpO2: stable & adequate BP & HR: stable & adequate Hydration State: stable & adequate Neuraxial Anesthesia: was administered and sensory block is resolving Anesthetic Complications: no major complications apparent and Pt Satisfied with anesthetic care Epidural: Removed without complications and With tip intact
--- NOTE | 2023-08-23 06:25 | Anesthesiology Progress Note ---
Date of Service August 23, 2023 Anesthesia Post Procedure Vital Signs Vital Signs: Temp Pulse Resp BP Pulse Ox 08/23/23 06:22 97 08/23/23 06:22 94 H 08/23/23 06:22 90 94 08/23/23 06:18 92 H 118/65 08/23/23 06:17 92 H 95 08/23/23 05:01 73 61/33 L 08/23/23 05:00 76 63/34 L 08/23/23 04:59 96 08/23/23 04:59 80 08/23/23 04:59 63/36 L 08/23/23 04:59 83 71/38 L 08/23/23 04:46 106 H 93 08/23/23 04:42 103 H 93 08/23/23 04:41 103 H 139/91 95 08/23/23 04:36 112 H 95 08/23/23 04:31 111 H 96 08/23/23 04:30 18 08/23/23 04:30 18 08/23/23 04:30 98.1 F 18 08/23/23 04:26 118 H 97 08/23/23 04:18 112 H 96 08/23/23 04:13 112 H 97 08/23/23 04:12 117 H 140/94 08/23/23 04:08 108 H 98 08/23/23 04:03 106 H 99 08/23/23 04:00 20 08/23/23 04:00 20 08/23/23 03:58 100 H 99 08/23/23 03:56 100 H 151/86 H 08/23/23 03:53 103 H 99 08/23/23 03:48 102 H 99 08/23/23 03:43 113 H 98 08/23/23 03:41 109 H 170/107 H 08/23/23 03:38 115 H 94 08/23/23 03:34 114 H 94 08/23/23 03:33 116 H 93 08/23/23 03:30 16 08/23/23 03:28 116 H 94 08/23/23 03:26 115 H 160/102 H 08/23/23 03:24 115 H 94 08/23/23 03:23 114 H 94 08/23/23 03:18 114 H 94 08/23/23 03:16 113 H 94 08/23/23 03:13 114 H 94 08/23/23 03:12 113 H 163/105 H 08/23/23 03:10 110 H 94 08/23/23 03:08 116 H 95 08/23/23 03:03 112 H 96 08/23/23 03:00 18 08/23/23 03:00 18 08/23/23 02:58 110 H 151/98 H 96 08/23/23 02:53 105 H 97 08/23/23 02:48 97 H 97 08/23/23 02:43 98 H 96 08/23/23 02:41 96 H 165/91 H 08/23/23 02:30 18 08/23/23 02:30 18 08/23/23 02:30 18 08/23/23 02:27 104 H 166/89 H 08/23/23 02:24 101 H 94 08/23/23 02:21 101 H 84 L 08/23/23 02:18 117 H 93 08/23/23 02:16 104 H 96 08/23/23 02:11 106 H 147/91 H 99 08/23/23 02:09 107 H 91 08/23/23 02:06 120 H 93 08/23/23 02:01 109 H 94 08/23/23 01:56 106 H 144/95 H 94 08/23/23 01:55 109 H 93 08/23/23 01:51 119 H 92 08/23/23 01:47 104 H 90 08/23/23 01:46 106 H 96 08/23/23 01:42 109 H 147/91 H 08/23/23 01:41 94 08/23/23 01:41 112 H 08/23/23 01:41 131 H 87 L 08/23/23 01:36 108 H 83 L 08/23/23 01:32 104 H 90 08/23/23 01:31 105 H 95 08/23/23 01:30 18 08/23/23 01:30 97.3 F L 18 08/23/23 01:27 110 H 94 08/23/23 01:26 106 H 146/87 H 95 08/23/23 01:21 106 H 97 08/23/23 01:16 108 H 95 08/23/23 01:12 104 H 154/88 H 08/23/23 01:11 104 H 94 11/23/23 01:06 105 H 96 08/23/23 01:01 98 H 95 08/23/23 01:00 98 H 18 91 08/23/23 00:56 89 169/100 H 96 08/23/23 00:53 103 H 94 08/23/23 00:51 102 H 94 08/23/23 00:47 113 H 94 08/23/23 00:46 111 H 95 08/23/23 00:42 96 H 174/107 H 08/23/23 00:41 97 H 95 08/23/23 00:40 97 H 94 08/23/23 00:36 109 H 100 08/23/23 00:31 92 H 97 08/23/23 00:30 98.4 F 106 H 18 93 08/23/23 00:26 93 H 94 08/23/23 00:24 102 H 93 08/23/23 00:21 94 H 95 08/23/23 00:19 95 H 94 08/23/23 00:16 103 H 97 08/23/23 00:13 95 H 142/81 H 94 08/23/23 00:09 92 H 96 08/23/23 00:04 97 H 94 08/23/23 00:02 89 88 L 08/23/23 00:00 18 08/23/23 00:00 18 08/22/23 23:59 88 65 L 08/22/23 23:57 86 135/66 08/22/23 23:56 89 86 L 08/22/23 23:54 90 97 08/22/23 23:49 98 H 83 L 08/22/23 23:48 111 H 93 08/22/23 23:44 93 H 98 08/22/23 23:41 95 H 169/95 H 08/22/23 23:39 98 08/22/23 23:39 93 H 08/22/23 23:39 93 H 89 L 08/22/23 23:34 96 H 98 08/22/23 23:30 18 23 23:30 18 08/22/23 23:29 101 H 99 23 23:27 99 H 184/91 H 08/22/23 23:24 97 H 97 08/22/23 23:19 98 H 100 08/22/23 23:14 98 H 98 08/22/23 23:13 100 H 174/97 H 22/23 23:09 95 H 100 08/22/23 23:04 96 23 23:04 97 H 08/22/23 23:04 95 H 92 22/23 22:59 112 H 96 08/22/23 22:56 105 H 125/68 08/22/23 22:54 104 H 97 23 22:49 111 H 98 2223 22:44 110 H 98 22/23 22:40 103 H 94 2223 22:39 81 96 22/23 22:34 90 99 08/22/23 22:30 18 08/22/23 22:30 18 08/22/23 22:30 18 08/22/23 22:29 89 99 08/22/23 22:26 92 H 153/97 H 08/22/23 22:24 93 H 99 08/22/23 22:19 90 100 08/22/23 22:14 97 H 100 08/22/23 22:12 108 H 156/112 H 23 22:09 107 H 100 08/22/23 22:04 95 H 99 23 22:00 18 08/22/23 22:00 98.6 F 18 08/22/23 21:59 100 H 97 23 21:55 93 H 93 23 21:54 74 99 23 21:49 79 98 23 21:44 85 98 23 21:43 81 147/82 H 23 21:39 94 H 96 22/23 21:34 102 H 94 22/23 21:33 130 H 93 22/23 21:30 18 22/23 21:30 18 2223 21:30 18 22/23 21:29 79 96 22/23 21:27 77 144/74 H 22/23 21:24 72 96 22/23 21:19 79 96 22/23 21:14 75 97 22/23 21:12 73 191/84 H 22/23 21:09 75 97 22/23 21:04 76 98 11/22/23 21:00 18 08/22/23 21:00 18 08/22/23 20:59 76 99 08/22/23 20:57 68 174/84 H 08/22/23 20:54 73 97 08/22/23 20:49 72 97 08/22/23 20:44 96 08/22/23 20:44 77 08/22/23 20:44 75 154/102 H 08/22/23 20:39 73 98 08/22/23 20:34 96 H 98 08/22/23 20:29 78 98 08/22/23 20:26 83 158/96 H 08/22/23 20:24 94 H 97 08/22/23 20:19 88 98 08/22/23 20:14 72 96 08/22/23 20:12 69 172/96 H 08/22/23 20:09 75 97 08/22/23 20:04 83 98 08/22/23 20:00 20 08/22/23 20:00 20 08/22/23 19:59 71 98 08/22/23 19:58 84 142/98 H 08/22/23 19:54 71 98 08/22/23 19:49 70 98 08/22/23 19:44 98 08/22/23 19:44 72 08/22/23 19:44 71 182/102 H 08/22/23 19:39 77 98 08/22/23 19:34 74 97 08/22/23 19:30 18 08/22/23 19:30 98.1 F 18 08/22/23 19:29 77 97 08/22/23 19:27 76 154/79 H 08/22/23 19:24 74 97 08/22/23 19:19 97 08/22/23 19:19 94 H 08/22/23 19:19 108 H 93 08/22/23 19:14 97 08/22/23 19:14 77 08/22/23 19:14 73 138/93 08/22/23 19:09 79 97 08/22/23 19:04 94 H 96 08/22/23 18:59 81 97 08/22/23 18:57 80 143/91 H 08/22/23 18:54 82 97 08/22/23 18:49 78 97 08/22/23 18:44 83 98 08/22/23 18:43 93 H 177/98 H 08/22/23 18:39 82 97 08/22/23 18:34 79 96 08/22/23 18:29 102 H 99 08/22/23 18:28 70 142/81 H 08/22/23 18:24 89 98 08/22/23 18:19 77 97 08/22/23 18:14 76 97 08/22/23 18:12 75 138/75 08/22/23 18:09 72 97 08/22/23 18:04 74 97 08/22/23 17:59 79 97 08/22/23 17:57 75 142/79 H 08/22/23 17:54 73 97 08/22/23 17:49 68 97 08/22/23 17:44 70 97 08/22/23 17:43 71 146/85 H 08/22/23 17:39 69 97 08/22/23 17:34 68 97 08/22/23 17:29 65 99 08/22/23 17:28 97.9 F 67 166/93 H 08/22/23 17:24 82 99 08/22/23 17:19 82 97 08/22/23 17:14 81 96 08/22/23 17:11 75 145/94 H 08/22/23 17:09 75 96 08/22/23 17:04 76 97 08/22/23 16:59 74 97 08/22/23 16:56 76 146/94 H 08/22/23 16:54 85 96 08/22/23 16:49 77 96 08/22/23 16:44 77 96 08/22/23 16:42 75 135/94 08/22/23 16:39 76 97 08/22/23 16:34 86 96 08/22/23 16:29 81 97 08/22/23 16:28 77 141/92 H 08/22/23 16:24 81 97 08/22/23 16:19 74 97 08/22/23 16:14 77 97 08/22/23 16:11 80 136/90 08/22/23 16:09 77 97 08/22/23 16:04 73 96 08/22/23 15:59 80 96 08/22/23 15:56 88 141/90 H 08/22/23 15:54 79 97 08/22/23 15:49 78 96 08/22/23 15:44 79 97 08/22/23 15:43 77 153/94 H 08/22/23 15:39 75 97 08/22/23 15:34 65 98 08/22/23 15:30 97.9 F 08/22/23 15:29 71 99 08/22/23 15:28 68 173/97 H 08/22/23 15:24 74 98 08/22/23 15:19 73 96 08/22/23 15:14 84 97 08/22/23 15:12 71 135/82 08/22/23 15:09 65 97 08/22/23 15:04 73 97 08/22/23 14:59 74 97 08/22/23 14:57 71 133/81 08/22/23 14:54 69 97 08/22/23 14:49 67 97 08/22/23 14:44 78 97 08/22/23 14:42 71 141/83 H 08/22/23 14:39 74 96 08/22/23 14:34 85 97 08/22/23 14:29 84 97 08/22/23 14:26 80 147/81 H 08/22/23 14:24 104 H 97 08/22/23 14:19 64 97 08/22/23 14:14 105 H 96 08/22/23 14:12 75 138/77 08/22/23 14:09 70 97 08/22/23 14:04 82 97 08/22/23 13:59 72 97 08/22/23 13:58 77 133/81 08/22/23 13:54 73 97 08/22/23 13:49 87 96 08/22/23 13:44 69 97 08/22/23 13:43 79 123/77 08/22/23 13:39 82 98 08/22/23 13:34 74 97 08/22/23 13:29 85 97 08/22/23 13:26 85 123/86 08/22/23 13:24 81 98 08/22/23 13:19 74 97 08/22/23 13:14 88 98 08/22/23 13:11 98.4 F 85 124/85 08/22/23 13:09 77 97 08/22/23 13:07 78 134/92 08/22/23 13:04 83 98 08/22/23 13:02 82 126/90 08/22/23 12:59 81 98 08/22/23 12:56 72 142/93 H 08/22/23 12:54 84 98 08/22/23 12:51 83 134/91 08/22/23 12:49 77 97 08/22/23 12:46 70 142/86 H 08/22/23 12:44 90 98 08/22/23 12:41 81 127/86 08/22/23 12:39 86 98 08/22/23 12:36 83 122/81 08/22/23 12:34 76 99 08/22/23 12:32 69 132/82 08/22/23 12:29 78 99 08/22/23 12:26 69 124/83 08/22/23 12:24 71 98 08/22/23 12:20 75 126/79 08/22/23 12:19 96 H 99 08/22/23 12:15 79 92 08/22/23 12:14 76 97 08/22/23 12:12 69 153/65 H 08/22/23 12:09 75 98 08/22/23 12:05 75 177/104 H 08/22/23 12:04 73 99 08/22/23 11:17 72 174/86 H 08/22/23 09:48 70 168/90 H Transfer of Care Handoff Completed per policy Notes Mental Status: alert / awake / arousable and participated in evaluation Patient Amnestic to Procedure: Yes Nausea / Vomiting: adequately controlled Pain: adequately controlled Airway Patency, RR, SpO2: stable & adequate BP & HR: stable & adequate Hydration State: stable & adequate Anesthetic Complications: no major complications apparent and Pt Satisfied with anesthetic care
--- NOTE | 2023-08-23 06:28 | Operative Report ---
Post Operative Report Pre & Post Diagnosis Operation Date: 08/23/23 04:15 <No data on this case meets the specified criteria> I identified the patient and participated in the time-out.: Yes Procedure Operation Date: 08/23/23 04:15 Actual Procedures p Section in LD - Rafat Wilburn MD Surgeon Rafat Wilburn MD Teacher Visually Impaired Kay Braden RN Estimated Blood Loss 600 Findings Consistent with Post-Op Diagnosis Infant is in cephalic your presentation there is meconium upon hysterotomy. Uterus and adnexa is appear grossly normal as of the abdominal pelvic exam is unremarkable. Fluids Urine output: 200 IVF; 1000 Specimens Placenta, cord gasses and cord blood Anesthesia Type Labor Epidural Indications Arrest of labot. op presentation Description of Procedure Patient brought to the operating room Prepped and draped in normal sterile fashion in dorsal supine position with a leftward tilt. Time out is performed. Patient is identified by name and date of . Allergy and antibiotics and reviewed and confirmed. Skin check is performed to see if anesthesia is adequate A Pfannenstiel incision is made and carried out to the fascia with a scalpel. Fascia is incised in the midline extended laterally on both sides with Bello scissors. Rach's were used to grab the superior part of the fascial incision and the rectus abdominis muscle dissected with Bello scissors.. Same procedure was performed on the lower section of the fascia. The rectus muscle is then in the midline and the peritoneum identified, tented up and entered sharply with the Metzenbaum scissors. The peritoneal incision was then extended superiorly and inferiorly with good visualization of the bladder. An Mayco retractor was then inserted to provide better visualization and retraction. Vesicouterine peritoneum was identified, grasped with pickups and entered sharply with Metzenbaum scissors. The incision was then extended laterally and the bladder flap created with Metzenbaum scissors. The lower uterine segment incision was performed in a transverse fashion with a scalpel. Uterine incision was then extended laterally with the bandage scissors. Upon his hysterotomy meconium seen. The infant is in cephalic OP presentation the infant's head was delivered atraumatically. There is no nuchal cord. Nose and mouth suctioned with the bulb suction. Cord is clamped and cut and handed over to the waiting pediatric team. Cord blood and gases obtained The placenta is then removed manually the uterus is exteriorized and cleared of all clots and debris. Uterine incision it repaired with 0-Vicryl in a locking fashion. A second layer of 0-Vicryl is used to obtain excellent hemostasis. Uterus is placed back into the abdominal cavity. The bladder flap was repaired in a running fashion with plain suture. Copious amount of irrigation was used to irrigate the abdomen. Gutters were cleared of all clots and debris . Hemostasis was obtained. The Mayco retractor is removed as well as sponges or instruments in the abdomen. The peritoneum was identified and closed in a running fashion using plain suture. The rectus abdominis muscle was examined to ensure there no bleeding. The rectus abdominis muscle was appro ximated loosely using plain suture in a [id number] manner. Once again hemostasis is confirmed. The fascia was grasped with Victorina's and closed in a running fashion. Both fascial layers are closed together using 0-Vicryl suture. Subcutaneous space is irrigated and hemostasis was confirmed. Subcutaneous space is approximated with plain suture. Skin is closed with dustin. The patient tolerated procedure well sponge just labs needle counts were correct x2 patient is sent to recovery in stable condition I attest to the content of the Intraoperative Record and any orders documented therein. Any exceptions are noted below. Teacher Visually Impaired was necessary for retraction and manipulation of instruments in order to provide for a safe operation
[2023-08-23] MEDS ORDERED: OXYTOCIN 10 UNITS/ML 10ML VIAL IM ONE (06:46)
[2023-08-23] MEDS: OXYTOCIN 20 UNITS/LR 1,002 ML IV SCH ×2 (07:01→18:10)
[2023-08-23] MEDS: MAGNESIUM SULFATE / WTR 40 GM/1,000 ML BAG IV SCH (07:01)
[2023-08-23 07:38] LABS: CO2 Cord Arterial Blood 107 mmHg (39.1-73.5); Oxygen Sat Cord Arterial Blood < 60.0 % (<60); PO2 Cord Arterial Blood < 20 mmHg (4.1-31.7); pH Cord Arterial Blood < 7.00 (7.1-7.38)
[2023-08-23 07:39] LABS: Cord Venous Blood PCO2 84 mmHg (30.4-57.2); Cord Venous Blood PO2 23 mmHg (14.1-43.3); Cord Venous Blood pH < 7.00 (7.20-7.44); O2 Saturation Cord Venous Bld < 60.0 % (<68)
--- NOTE | 2023-08-23 09:14 | Obstetrical Progress Note ---
Date of Service August 23, 2023 Assessment & Plan Admission and Anticipated Discharge Date Admission Date: August 21, 2023 Subjective Postop check Patient is seen and examined Feels well, no complaints other than being tired Pain is under control with meds No MERCER/ Change in vision/ CP/ SOB/ Dizziness/ N&V/ VB/ Leg pain Not OOB yet Tolerating clears Breast feeding Vital Signs Temp Pulse Resp BP Pulse Ox 08/23/23 09:09 99 08/23/23 09:09 100 H 08/23/23 09:04 98 08/23/23 09:04 89 08/23/23 09:04 145/78 H 08/23/23 08:59 98 08/23/23 08:59 88 08/23/23 08:54 97 08/23/23 08:54 92 H 08/23/23 08:53 94 08/23/23 08:53 92 H 08/23/23 08:49 99 08/23/23 08:49 101 H 08/23/23 08:44 97 08/23/23 08:44 86 08/23/23 08:41 93 08/23/23 08:41 90 08/23/23 08:39 99 08/23/23 08:39 100 H 08/23/23 08:34 98 08/23/23 08:34 96 H 08/23/23 08:34 136/79 08/23/23 08:29 99 H 98 08/23/23 08:24 105 H 99 08/23/23 08:19 96 H 99 08/23/23 08:14 87 97 08/23/23 08:09 86 98 08/23/23 08:04 98 08/23/23 08:04 84 08/23/23 08:04 85 138/81 08/23/23 08:02 84 93 08/23/23 07:59 86 97 08/23/23 07:54 81 96 08/23/23 07:49 88 98 08/23/23 07:44 84 97 08/23/23 07:39 88 98 08/23/23 07:34 86 99 08/23/23 07:30 83 131/76 08/23/23 07:29 87 96 08/23/23 07:24 87 98 08/23/23 07:19 88 98 08/23/23 07:17 90 136/73 08/23/23 07:14 89 98 08/23/23 07:07 97 08/23/23 07:07 92 H 08/23/23 07:07 90 127/63 08/23/23 07:02 92 H 97 08/23/23 06:59 91 H 93 08/23/23 06:57 84 120/59 L 84 L 08/23/23 06:53 88 91 08/23/23 06:52 88 91 08/23/23 06:47 90 123/60 97 08/23/23 06:42 95 H 97 08/23/23 06:40 18 99 08/23/23 06:37 96 08/23/23 06:37 92 H 08/23/23 06:37 96 H 120/70 08/23/23 06:32 98 08/23/23 06:32 95 H 08/23/23 06:32 90 92 08/23/23 06:30 36.7 C 18 99 08/23/23 06:27 95 08/23/23 06:27 92 H 08/23/23 06:27 94 H 115/66 94 08/23/23 06:22 97 08/23/23 06:22 94 H 08/23/23 06:22 90 94 08/23/23 06:18 92 H 118/65 08/23/23 06:17 92 H 95 08/23/23 05:01 73 61/33 L 08/23/23 05:00 76 63/34 L 08/23/23 04:59 96 08/23/23 04:59 80 08/23/23 04:59 63/36 L 08/23/23 04:59 83 71/38 L 08/23/23 04:46 106 H 93 08/23/23 04:42 103 H 93 08/23/23 04:41 103 H 139/91 95 08/23/23 04:36 112 H 95 08/23/23 04:31 111 H 96 08/23/23 04:30 18 08/23/23 04:30 18 08/23/23 04:30 36.7 C 18 08/23/23 04:26 118 H 97 08/23/23 04:18 112 H 96 08/23/23 04:13 112 H 97 08/23/23 04:12 117 H 140/94 08/23/23 04:08 108 H 98 08/23/23 04:03 106 H 99 08/23/23 04:00 20 08/23/23 04:00 20 08/23/23 03:58 100 H 99 08/23/23 03:56 100 H 151/86 H 08/23/23 03:53 103 H 99 08/23/23 03:48 102 H 99 08/23/23 03:43 113 H 98 08/23/23 03:41 109 H 170/107 H 08/23/23 03:38 115 H 94 08/23/23 03:34 114 H 94 08/23/23 03:33 116 H 93 08/23/23 03:30 16 08/23/23 03:28 116 H 94 08/23/23 03:26 115 H 160/102 H 08/23/23 03:24 115 H 94 08/23/23 03:23 114 H 94 08/23/23 03:18 114 H 94 08/23/23 03:16 113 H 94 08/23/23 03:13 114 H 94 08/23/23 03:12 113 H 163/105 H 08/23/23 03:10 110 H 94 08/23/23 03:08 116 H 95 08/23/23 03:03 112 H 96 08/23/23 03:00 18 08/23/23 03:00 18 08/23/23 02:58 110 H 151/98 H 96 08/23/23 02:53 105 H 97 08/23/23 02:48 97 H 97 08/23/23 02:43 98 H 96 08/23/23 02:41 96 H 165/91 H 08/23/23 02:30 18 08/23/23 02:30 18 08/23/23 02:30 18 08/23/23 02:27 104 H 166/89 H 08/23/23 02:24 101 H 94 08/23/23 02:21 101 H 84 L 08/23/23 02:18 117 H 93 08/23/23 02:16 104 H 96 08/23/23 02:11 106 H 147/91 H 99 08/23/23 02:09 107 H 91 08/23/23 02:06 120 H 93 08/23/23 02:01 109 H 94 08/23/23 01:56 106 H 144/95 H 94 08/23/23 01:55 109 H 93 08/23/23 01:51 119 H 92 08/23/23 01:47 104 H 90 08/23/23 01:46 106 H 96 08/23/23 01:42 109 H 147/91 H 08/23/23 01:41 94 08/23/23 01:41 112 H 08/23/23 01:41 131 H 87 L 08/23/23 01:36 108 H 83 L 08/23/23 01:32 104 H 90 08/23/23 01:31 105 H 95 08/23/23 01:30 18 08/23/23 01:30 36.3 C L 18 08/23/23 01:27 110 H 94 08/23/23 01:26 106 H 146/87 H 95 08/23/23 01:21 106 H 97 08/23/23 01:16 108 H 95 08/23/23 01:12 104 H 154/88 H 08/23/23 01:11 104 H 94 08/23/23 01:06 105 H 96 08/23/23 01:01 98 H 95 08/23/23 01:00 98 H 18 91 08/23/23 00:56 89 169/100 H 96 08/23/23 00:53 103 H 94 08/23/23 00:51 102 H 94 08/23/23 00:47 113 H 94 08/23/23 00:46 111 H 95 08/23/23 00:42 96 H 174/107 H 08/23/23 00:41 97 H 95 08/23/23 00:40 97 H 94 08/23/23 00:36 109 H 100 08/23/23 00:31 92 H 97 08/23/23 00:30 36.9 C 106 H 18 93 08/23/23 00:26 93 H 94 08/23/23 00:24 102 H 93 08/23/23 00:21 94 H 95 08/23/23 00:19 95 H 94 08/23/23 00:16 103 H 97 08/23/23 00:13 95 H 142/81 H 94 08/23/23 00:09 92 H 96 08/23/23 00:04 97 H 94 08/23/23 00:02 89 88 L 11/23/23 00:00 18 23 00:00 18 23 23:59 88 65 L 23 23:57 86 135/66 23 23:56 89 86 L 08/22/23 23:54 90 97 08/22/23 23:49 98 H 83 L 23 23:48 111 H 93 23 23:44 93 H 98 23 23:41 95 H 169/95 H 23 23:39 98 2223 23:39 93 H 2223 23:39 93 H 89 L 08/22/23 23:34 96 H 98 23 23:30 18 23 23:30 18 23 23:29 101 H 99 23 23:27 99 H 184/91 H 23 23:24 97 H 97 23 23:19 98 H 100 23 23:14 98 H 98 23 23:13 100 H 174/97 H 23 23:09 95 H 100 23 23:04 96 2223 23:04 97 H 23 23:04 95 H 92 23 22:59 112 H 96 23 22:56 105 H 125/68 23 22:54 104 H 97 23 22:49 111 H 98 23 22:44 110 H 98 23 22:40 103 H 94 23 22:39 81 96 2223 22:34 90 99 22/23 22:30 18 22/23 22:30 18 22/23 22:30 18 22/23 22:29 89 99 22/23 22:26 92 H 153/97 H 22/23 22:24 93 H 99 22/23 22:19 90 100 22/23 22:14 97 H 100 22/23 22:12 108 H 156/112 H 22/23 22:09 107 H 100 2223 22:04 95 H 99 22/23 22:00 18 11/22/23 22:00 37.0 C 18 08/22/23 21:59 100 H 97 08/22/23 21:55 93 H 93 08/22/23 21:54 74 99 08/22/23 21:49 79 98 08/22/23 21:44 85 98 08/22/23 21:43 81 147/82 H 08/22/23 21:39 94 H 96 08/22/23 21:34 102 H 94 08/22/23 21:33 130 H 93 08/22/23 21:30 18 08/22/23 21:30 18 08/22/23 21:30 18 08/22/23 21:29 79 96 08/22/23 21:27 77 144/74 H 08/22/23 21:24 72 96 08/22/23 21:19 79 96 08/22/23 21:14 75 97 08/22/23 21:12 73 191/84 H Lab Results 08/21/23 08/21/23 08/22/23 Range/Units 10:47 Unknown 19:26 WBC 6.55 11.66 H (4.8-10.8) K/ul RBC 4.10 L 4.32 (4.20-5.40) M/uL Hgb 11.5 L 12.0 (12.0-16.0) g/dl Hct 34.8 L 36.5 L (37.0-47.0) % MCV 84.9 84.5 (80.0-100.0) fL MCH 28.0 27.8 (25.0-34.0) pg MCHC 33.0 32.9 (32.0-36.0) g/dL RDW Std Deviation 49.3 H 49.8 H (36.4-46.3) fL RDW Coeff of Chris 16.1 H 16.2 H (11.5-14.5) % Plt Count 159 164 (130-400) K/uL MPV 12.2 11.5 (9.4-12.4) fL Immature Gran % (Auto) 1.0 % Neut % (Auto) 80.2 % Lymph % (Auto) 14.1 % [place] % (Auto) 4.3 % Eos % (Auto) 0.1 % Baso % (Auto) 0.3 % Neut # (Auto) 9.35 H (1.40-6.50) K/uL Lymph # (Auto) 1.64 (1.20-3.40) K/uL [place] # (Auto) 0.50 (0.11-0.59) K/uL Eos # (Auto) 0.01 (0.00-0.50) K/uL Baso # (Auto) 0.04 (0.00-0.20) K/uL Immature Gran # (Auto) 0.12 (0.01-0.20) K/uL Cord ABG pH (7.1-7.38) Cord ABG pCO2 (39.1-73.5) mmHg Cord ABG pO2 (4.1-31.7) mmHg Cord ABG HCO3 Cord ABG Base Excess Cord ABG O2 Sat (<60) % Cord VBG pH (7.20-7.44) Cord VBG pCO2 (30.4-57.2) mmHg Cord VBG pO2 (14.1-43.3) mmHg Cord VBG HCO3 Cord VBG Base Excess Cord VBG O2 Sat (<68) % Blood Gas Comments Sodium 138 137 (136-145) mmol/L Potassium 4.1 4.3 (3.5-5.1) mmol/L Chloride 109 H 108 H (98-107) mmol/L Carbon Dioxide 21 19 L (21-32) mmol/L Anion Gap 8 10 (3-11) BUN 9 11 (6-23) mg/dl Creatinine 0.70 0.84 (0.6-1.2) mg/dl Est Cr Clr Drug Dosing 98.0 81.6 ml/min Est GFR ( Amer) 135.7 108.9 ml/min Est GFR (Non-Af Amer) 117.1 93.9 ml/min BUN/Creatinine Ratio 12.9 13.1 (10-20) Glucose 136 H 84 (70-99(Fasting)) mg/dl Uric Acid 7.3 H (2.6-7.2) mg/dl Calcium 8.6 8.8 (8.6-10.3) mg/dl Total Bilirubin 0.2 0.3 (0.2-1.0) mg/dl Direct Bilirubin 0.0 (0-0.2) mg/dl AST 21 24 (13-39) U/L ALT 13 16 (7-52) U/L Alkaline Phosphatase 192 H 203 H (34-104) U/L Lactate Dehydrogenase 179 (86-244) U/L Total Protein 5.6 L 5.6 L (6.0-8.3) gm/dl Albumin 3.1 L 3.0 L (3.4-5.0) gm/dl Globulin 2.5 2.6 (2.5-4.0) gm/dl Albumin/Globulin Ratio 1.2 1.2 (0.9-2) Ur Random Creatinine 195.4 mg/dl U Random Total Protein 756.2 H (0-11.9) mg/dl Protein/Creatinin Ratio 3.9 H (0-0.2) 08/23/23 08/23/23 Range/Units 06:32 06:32 WBC (4.8-10.8) K/ul RBC (4.20-5.40) M/uL Hgb (12.0-16.0) g/dl Hct (37.0-47.0) % MCV (80.0-100.0) fL MCH (25.0-34.0) pg MCHC (32.0-36.0) g/dL RDW Std Deviation (36.4-46.3) fL RDW Coeff of Chris (11.5-14.5) % Plt Count (130-400) K/uL MPV (9.4-12.4) fL Immature Gran % (Auto) % Neut % (Auto) % Lymph % (Auto) % [place] % (Auto) % Eos % (Auto) % Baso % (Auto) % Neut # (Auto) (1.40-6.50) K/uL Lymph # (Auto) (1.20-3.40) K/uL [place] # (Auto) (0.11-0.59) K/uL Eos # (Auto) (0.00-0.50) K/uL Baso # (Auto) (0.00-0.20) K/uL Immature Gran # (Auto) (0.01-0.20) K/uL Cord ABG pH < 7.00 L (7.1-7.38) Cord ABG pCO2 107 H (39.1-73.5) mmHg Cord ABG pO2 < 20 (4.1-31.7) mmHg Cord ABG HCO3 TNP Cord ABG Base Excess TNP Cord ABG O2 Sat < 60.0 (<60) % Cord VBG pH < 7.00 L (7.20-7.44) Cord VBG pCO2 84 H (30.4-57.2) mmHg Cord VBG pO2 23 (14.1-43.3) mmHg Cord VBG HCO3 TNP Cord VBG Base Excess TNP Cord VBG O2 Sat < 60.0 (<68) % Blood Gas Comments A A Sodium (136-145) mmol/L Potassium (3.5-5.1) mmol/L Chloride (98-107) mmol/L Carbon Dioxide (21-32) mmol/L Anion Gap (3-11) BUN (6-23) mg/dl Creatinine (0.6-1.2) mg/dl Est Cr Clr Drug Dosing ml/min Est GFR ( Amer) ml/min Est GFR (Non-Af Amer) ml/min BUN/Creatinine Ratio (10-20) Glucose (70-99(Fasting)) mg/dl Uric Acid (2.6-7.2) mg/dl Calcium (8.6-10.3) mg/dl Total Bilirubin (0.2-1.0) mg/dl Direct Bilirubin (0-0.2) mg/dl AST (13-39) U/L ALT (7-52) U/L Alkaline Phosphatase (34-104) U/L Lactate Dehydrogenase (86-244) U/L Total Protein (6.0-8.3) gm/dl Albumin (3.4-5.0) gm/dl Globulin (2.5-4.0) gm/dl Albumin/Globulin Ratio (0.9-2) Ur Random Creatinine mg/dl U Random Total Protein (0-11.9) mg/dl Protein/Creatinin Ratio (0-0.2) PE: General: Alert, orientedx3, NAD CVS: S1S2 RRR Lungs: CTAB Abd: soft, NT, ND, BS+, Dressing C/D/I Lochia rubra minial Ext: NT, no edema, SCD's on AP: 28 yo female s/p Primary Csection, on IV magnesium, pod#0 VSS Afebrile doing well No s/s of Magnesium toxicity Encourage PO intake Stop Mag after 24 hours Repeat labs Continue to monitor closely Results & Data Vital Signs (Past 12 Hours) Vital Signs Temp Pulse Resp BP Pulse Ox 08/23/23 09:09 99 08/23/23 09:09 100 H 08/23/23 09:04 98 08/23/23 09:04 89 08/23/23 09:04 145/78 H 08/23/23 08:59 98 08/23/23 08:59 88 08/23/23 08:54 97 08/23/23 08:54 92 H 08/23/23 08:53 94 08/23/23 08:53 92 H 08/23/23 08:49 99 08/23/23 08:49 101 H 08/23/23 08:44 97 08/23/23 08:44 86 08/23/23 08:41 93 08/23/23 08:41 90 08/23/23 08:39 99 08/23/23 08:39 100 H 08/23/23 08:34 98 08/23/23 08:34 96 H 08/23/23 08:34 136/79 08/23/23 08:29 99 H 98 08/23/23 08:24 105 H 99 08/23/23 08:19 96 H 99 08/23/23 08:14 87 97 08/23/23 08:09 86 98 08/23/23 08:04 98 08/23/23 08:04 84 08/23/23 08:04 85 138/81 08/23/23 08:02 84 93 08/23/23 07:59 86 97 08/23/23 07:54 81 96 08/23/23 07:49 88 98 08/23/23 07:44 84 97 08/23/23 07:39 88 98 08/23/23 07:34 86 99 08/23/23 07:30 83 131/76 08/23/23 07:29 87 96 08/23/23 07:24 87 98 08/23/23 07:19 88 98 08/23/23 07:17 90 136/73 08/23/23 07:14 89 98 08/23/23 07:07 97 08/23/23 07:07 92 H 08/23/23 07:07 90 127/63 08/23/23 07:02 92 H 97 08/23/23 06:59 91 H 93 08/23/23 06:57 84 120/59 L 84 L 08/23/23 06:53 88 91 08/23/23 06:52 88 91 08/23/23 06:47 90 123/60 97 08/23/23 06:42 95 H 97 08/23/23 06:40 18 99 08/23/23 06:37 96 08/23/23 06:37 92 H 08/23/23 06:37 96 H 120/70 08/23/23 06:32 98 08/23/23 06:32 95 H 08/23/23 06:32 90 92 08/23/23 06:30 36.7 C 18 99 08/23/23 06:27 95 08/23/23 06:27 92 H 08/23/23 06:27 94 H 115/66 94 08/23/23 06:22 97 08/23/23 06:22 94 H 08/23/23 06:22 90 94 08/23/23 06:18 92 H 118/65 08/23/23 06:17 92 H 95 08/23/23 05:01 73 61/33 L 08/23/23 05:00 76 63/34 L 08/23/23 04:59 96 08/23/23 04:59 80 08/23/23 04:59 63/36 L 08/23/23 04:59 83 71/38 L 08/23/23 04:46 106 H 93 08/23/23 04:42 103 H 93 08/23/23 04:41 103 H 139/91 95 08/23/23 04:36 112 H 95 08/23/23 04:31 111 H 96 08/23/23 04:30 18 08/23/23 04:30 18 08/23/23 04:30 36.7 C 18 08/23/23 04:26 118 H 97 08/23/23 04:18 112 H 96 08/23/23 04:13 112 H 97 08/23/23 04:12 117 H 140/94 08/23/23 04:08 108 H 98 08/23/23 04:03 106 H 99 08/23/23 04:00 20 08/23/23 04:00 20 08/23/23 03:58 100 H 99 08/23/23 03:56 100 H 151/86 H 08/23/23 03:53 103 H 99 08/23/23 03:48 102 H 99 08/23/23 03:43 113 H 98 08/23/23 03:41 109 H 170/107 H 08/23/23 03:38 115 H 94 08/23/23 03:34 114 H 94 08/23/23 03:33 116 H 93 08/23/23 03:30 16 08/23/23 03:28 116 H 94 08/23/23 03:26 115 H 160/102 H 08/23/23 03:24 115 H 94 08/23/23 03:23 114 H 94 08/23/23 03:18 114 H 94 08/23/23 03:16 113 H 94 08/23/23 03:13 114 H 94 08/23/23 03:12 113 H 163/105 H 08/23/23 03:10 110 H 94 08/23/23 03:08 116 H 95 08/23/23 03:03 112 H 96 08/23/23 03:00 18 08/23/23 03:00 18 08/23/23 02:58 110 H 151/98 H 96 08/23/23 02:53 105 H 97 08/23/23 02:48 97 H 97 08/23/23 02:43 98 H 96 08/23/23 02:41 96 H 165/91 H 08/23/23 02:30 18 08/23/23 02:30 18 08/23/23 02:30 18 08/23/23 02:27 104 H 166/89 H 08/23/23 02:24 101 H 94 08/23/23 02:21 101 H 84 L 08/23/23 02:18 117 H 93 08/23/23 02:16 104 H 96 08/23/23 02:11 106 H 147/91 H 99 08/23/23 02:09 107 H 91 08/23/23 02:06 120 H 93 08/23/23 02:01 109 H 94 08/23/23 01:56 106 H 144/95 H 94 08/23/23 01:55 109 H 93 08/23/23 01:51 119 H 92 08/23/23 01:47 104 H 90 08/23/23 01:46 106 H 96 08/23/23 01:42 109 H 147/91 H 08/23/23 01:41 94 08/23/23 01:41 112 H 08/23/23 01:41 131 H 87 L 08/23/23 01:36 108 H 83 L 08/23/23 01:32 104 H 90 08/23/23 01:31 105 H 95 08/23/23 01:30 18 08/23/23 01:30 36.3 C L 18 08/23/23 01:27 110 H 94 08/23/23 01:26 106 H 146/87 H 95 08/23/23 01:21 106 H 97 08/23/23 01:16 108 H 95 08/23/23 01:12 104 H 154/88 H 08/23/23 01:11 104 H 94 08/23/23 01:06 105 H 96 08/23/23 01:01 98 H 95 08/23/23 01:00 98 H 18 91 08/23/23 00:56 89 169/100 H 96 08/23/23 00:53 103 H 94 08/23/23 00:51 102 H 94 08/23/23 00:47 113 H 94 08/23/23 00:46 111 H 95 08/23/23 00:42 96 H 174/107 H 08/23/23 00:41 97 H 95 08/23/23 00:40 97 H 94 08/23/23 00:36 109 H 100 08/23/23 00:31 92 H 97 08/23/23 00:30 36.9 C 106 H 18 93 08/23/23 00:26 93 H 94 08/23/23 00:24 102 H 93 08/23/23 00:21 94 H 95 08/23/23 00:19 95 H 94 08/23/23 00:16 103 H 97 08/23/23 00:13 95 H 142/81 H 94 08/23/23 00:09 92 H 96 08/23/23 00:04 97 H 94 08/23/23 00:02 89 88 L 08/23/23 00:00 18 08/23/23 00:00 18 08/22/23 23:59 88 65 L 08/22/23 23:57 86 135/66 08/22/23 23:56 89 86 L 11/22/23 23:54 90 97 22/23 23:49 98 H 83 L 22/23 23:48 111 H 93 22/23 23:44 93 H 98 22/23 23:41 95 H 169/95 H 22/23 23:39 98 22/23 23:39 93 H 22/23 23:39 93 H 89 L 22/23 23:34 96 H 98 22/23 23:30 18 22/23 23:30 18 22/23 23:29 101 H 99 22/23 23:27 99 H 184/91 H 22/23 23:24 97 H 97 22/23 23:19 98 H 100 22/23 23:14 98 H 98 22/23 23:13 100 H 174/97 H 22/23 23:09 95 H 100 22/23 23:04 96 22/23 23:04 97 H 23 23:04 95 H 92 2223 22:59 112 H 96 22/23 22:56 105 H 125/68 22/23 22:54 104 H 97 22/23 22:49 111 H 98 22/23 22:44 110 H 98 22/23 22:40 103 H 94 22/23 22:39 81 96 22/23 22:34 90 99 22/23 22:30 18 22/23 22:30 18 2223 22:30 18 2223 22:29 89 99 2223 22:26 92 H 153/97 H 22/23 22:24 93 H 99 22/23 22:19 90 100 22/23 22:14 97 H 100 22/23 22:12 108 H 156/112 H 22/23 22:09 107 H 100 22/23 22:04 95 H 99 22/23 22:00 18 22/23 22:00 37.0 C 18 22/23 21:59 100 H 97 22/23 21:55 93 H 93 22/23 21:54 74 99 22/23 21:49 79 98 11/22/23 21:44 85 98 08/22/23 21:43 81 147/82 H 08/22/23 21:39 94 H 96 08/22/23 21:34 102 H 94 08/22/23 21:33 130 H 93 08/22/23 21:30 18 08/22/23 21:30 18 08/22/23 21:30 18 08/22/23 21:29 79 96 08/22/23 21:27 77 144/74 H 08/22/23 21:24 72 96 08/22/23 21:19 79 96 08/22/23 21:14 75 97 08/22/23 21:12 73 191/84 H
[2023-08-23 10:32] LABS: Hematocrit (blood only) 36.5 % (37.0-47.0); Hemoglobin 11.9 g/dl (12.0-16.0); Mean Corpuscular Hemoglobin 27.8 pg (25.0-34.0); Mean Corpuscular Hgb Conc 32.6 g/dL (32.0-36.0); Mean Corpuscular Volume 85.3 fL (80.0-100.0); Mean Platelet Volume 11.9 fL (9.4-12.4); Platelet Count 155 K/uL (130-400); RDW Coefficient of Variation 16.7 % (11.5-14.5); RDW Standard Deviation 51.3 fL (36.4-46.3); Red Blood Count 4.28 M/uL (4.20-5.40); White Blood Count 18.89 K/ul (4.8-10.8)
[2023-08-23 10:39] LABS: Albumin Globulin Ratio 1.1 (0.9-2); Albumin Level 2.8 gm/dl (3.4-5.0); BUN Creatinine Ratio 12.5 (10-20); Bilirubin,Total 0.2 mg/dl (0.2-1.0); Calcium 8.2 mg/dl (8.6-10.3); Creatinine Clr Calc Pharmacy 61.2 ml/min; Est GFR (African American) 76.9 ml/min; Est GFR (Non-African American) 66.3 ml/min; Globulin 2.5 gm/dl (2.5-4.0); Potassium 4.1 mmol/L (3.5-5.1); Total Protein 5.3 gm/dl (6.0-8.3)
[2023-08-23 10:51] LABS: Basophils # (auto) 0.04 K/uL (0.00-0.20); Basophils % (auto) 0.2 %; Immature Granulocytes # (auto) 0.17 K/uL (0.01-0.20); Immature Granulocytes % (auto) 0.9 %; Lymphocytes # (auto) 0.86 K/uL (1.20-3.40); Lymphocytes % (auto) 4.6 %; Monocytes # (auto) 0.67 K/uL (0.11-0.59); Monocytes % (auto) 3.5 %; Neutrophils # (auto) 17.15 K/uL (1.40-6.50); Neutrophils % (auto) 90.8 %
[2023-08-23] MEDS: DOCUSATE SODIUM 100 MG CAP PO SCH ×2 (16:41→21:20)
[2023-08-23] MEDS: SIMETHICONE 80 MG CHEW PO SCH ×3 (16:41→21:20)
[2023-08-23] MEDS: FERROUS SULFATE 325 MG TAB PO SCH (16:41)
[2023-08-23] MEDS: PRENATAL VITAMIN 1 TAB PO SCH (16:41)
[2023-08-23] MEDS: cefOXitin 2,000 MG in DEXTROSE 5 % MINI-B 50 ML IV SCH (18:11)
[2023-08-23] MEDS: LABETALOL HCL 100 MG TAB PO SCH (21:49)
[2023-08-23] MEDS ORDERED: oxyCODONE/ACETAMINOPHEN 5mg/325mg TAB PO PRN (23:34)
[2023-08-23] MEDS ORDERED: PROMETHAZINE HCL 25 MG in SODIUM CHLORIDE 0.9% 50 ML IV PRN (23:34)
[2023-08-24] MEDS: cefOXitin 2,000 MG in DEXTROSE 5 % MINI-B 50 ML IV SCH ×3 (00:03→12:21)
[2023-08-24] MEDS: IBUPROFEN 600 MG TAB PO PRN ×5 (00:21→21:44)
[2023-08-24 07:39] LABS: Basophils # (auto) 0.02 K/uL (0.00-0.20); Basophils % (auto) 0.2 %; Eosinophils # (auto) 0.01 K/uL (0.00-0.50); Eosinophils % (auto) 0.1 %; Hematocrit (blood only) 28.7 % (37.0-47.0); Hemoglobin 9.5 g/dl (12.0-16.0); Immature Granulocytes # (auto) 0.08 K/uL (0.01-0.20); Immature Granulocytes % (auto) 0.6 %; Lymphocytes # (auto) 1.44 K/uL (1.20-3.40); Lymphocytes % (auto) 11.6 %; Mean Corpuscular Hemoglobin 27.9 pg (25.0-34.0); Mean Corpuscular Hgb Conc 33.1 g/dL (32.0-36.0); Mean Corpuscular Volume 84.4 fL (80.0-100.0); Mean Platelet Volume 11.2 fL (9.4-12.4); Monocytes % (auto) 3.2 %; Neutrophils # (auto) 10.43 K/uL (1.40-6.50); Neutrophils % (auto) 84.3 %; Platelet Count 146 K/uL (130-400); RDW Coefficient of Variation 16.7 % (11.5-14.5); RDW Standard Deviation 50.3 fL (36.4-46.3); White Blood Count 12.38 K/ul (4.8-10.8)
[2023-08-24 08:00] LABS: Albumin Globulin Ratio 1.2 (0.9-2); Albumin Level 2.4 gm/dl (3.4-5.0); Bilirubin,Total 0.2 mg/dl (0.2-1.0); Calcium 7.7 mg/dl (8.6-10.3); Magnesium Therapeutic L&D Only 3.5 mg/dL (4.0-8.0); Potassium 4.7 mmol/L (3.5-5.1); Total Protein 4.4 gm/dl (6.0-8.3)
--- NOTE | 2023-08-24 08:04 | Obstetrical Progress Note ---
Date of Service August 24, 2023 Assessment & Plan Admission and Anticipated Discharge Date Admission Date: August 21, 2023 Subjective Patient is seen and examined. She feels well, no complaints. Pain is under control with oral meds. Ambulating without dizziness Voiding without difficulty Tolerating regular diet with out N&V Flatus + BM neg Bleeding is minimal No MERCER/ Change in vision/ fever/ chills/ CP/ SOB/ N&V/ Leg pain Breast feeding without problems Vital Signs Temp Pulse Resp BP BP Pulse Ox O2 Del Method 08/24/23 03:45 36.7 C 69 16 114/74 96 Room Air 08/24/23 00:00 36.7 C 86 18 138/90 97 Room Air 08/23/23 23:30 18 98 08/23/23 22:50 144/93 H 08/23/23 22:15 18 98 08/23/23 21:00 20 97 08/23/23 20:45 163/103 H 171/103 H Lab Results 08/21/23 08/21/23 08/22/23 Range/Units 10:47 Unknown 19:26 WBC 6.55 11.66 H (4.8-10.8) K/ul RBC 4.10 L 4.32 (4.20-5.40) M/uL Hgb 11.5 L 12.0 (12.0-16.0) g/dl Hct 34.8 L 36.5 L (37.0-47.0) % MCV 84.9 84.5 (80.0-100.0) fL MCH 28.0 27.8 (25.0-34.0) pg MCHC 33.0 32.9 (32.0-36.0) g/dL RDW Std Deviation 49.3 H 49.8 H (36.4-46.3) fL RDW Coeff of Chris 16.1 H 16.2 H (11.5-14.5) % Plt Count 159 164 (130-400) K/uL MPV 12.2 11.5 (9.4-12.4) fL Immature Gran % (Auto) 1.0 % Neut % (Auto) 80.2 % Lymph % (Auto) 14.1 % [place] % (Auto) 4.3 % Eos % (Auto) 0.1 % Baso % (Auto) 0.3 % Neut # (Auto) 9.35 H (1.40-6.50) K/uL Lymph # (Auto) 1.64 (1.20-3.40) K/uL [place] # (Auto) 0.50 (0.11-0.59) K/uL Eos # (Auto) 0.01 (0.00-0.50) K/uL Baso # (Auto) 0.04 (0.00-0.20) K/uL Immature Gran # (Auto) 0.12 (0.01-0.20) K/uL Cord ABG pH (7.1-7.38) Cord ABG pCO2 (39.1-73.5) mmHg Cord ABG pO2 (4.1-31.7) mmHg Cord ABG HCO3 Cord ABG Base Excess Cord ABG O2 Sat (<60) % Cord VBG pH (7.20-7.44) Cord VBG pCO2 (30.4-57.2) mmHg Cord VBG pO2 (14.1-43.3) mmHg Cord VBG HCO3 Cord VBG Base Excess Cord VBG O2 Sat (<68) % Blood Gas Comments Sodium 138 137 (136-145) mmol/L Potassium 4.1 4.3 (3.5-5.1) mmol/L Chloride 109 H 108 H (98-107) mmol/L Carbon Dioxide 21 19 L (21-32) mmol/L Anion Gap 8 10 (3-11) BUN 9 11 (6-23) mg/dl Creatinine 0.70 0.84 (0.6-1.2) mg/dl Est Cr Clr Drug Dosing 98.0 81.6 ml/min Est GFR ( Amer) 135.7 108.9 ml/min Est GFR (Non-Af Amer) 117.1 93.9 ml/min BUN/Creatinine Ratio 12.9 13.1 (10-20) Glucose 136 H 84 (70-99(Fasting)) mg/dl Fasting Glucose (70-99) mg/dl Uric Acid 7.3 H (2.6-7.2) mg/dl Calcium 8.6 8.8 (8.6-10.3) mg/dl Magnesium (Sulf Ther) (4.0-8.0) mg/dL Total Bilirubin 0.2 0.3 (0.2-1.0) mg/dl Direct Bilirubin 0.0 (0-0.2) mg/dl AST 21 24 (13-39) U/L ALT 13 16 (7-52) U/L Alkaline Phosphatase 192 H 203 H (34-104) U/L Lactate Dehydrogenase 179 (86-244) U/L Total Protein 5.6 L 5.6 L (6.0-8.3) gm/dl Albumin 3.1 L 3.0 L (3.4-5.0) gm/dl Globulin 2.5 2.6 (2.5-4.0) gm/dl Albumin/Globulin Ratio 1.2 1.2 (0.9-2) Ur Random Creatinine 195.4 mg/dl U Random Total Protein 756.2 H (0-11.9) mg/dl Protein/Creatinin Ratio 3.9 H (0-0.2) 08/23/23 08/23/23 08/23/23 Range/Units 06:32 06:32 10:06 WBC 18.89 H (4.8-10.8) K/ul RBC 4.28 (4.20-5.40) M/uL Hgb 11.9 L (12.0-16.0) g/dl Hct 36.5 L (37.0-47.0) % MCV 85.3 (80.0-100.0) fL MCH 27.8 (25.0-34.0) pg MCHC 32.6 (32.0-36.0) g/dL RDW Std Deviation 51.3 H (36.4-46.3) fL RDW Coeff of Chris 16.7 H (11.5-14.5) % Plt Count 155 (130-400) K/uL MPV 11.9 (9.4-12.4) fL Immature Gran % (Auto) 0.9 % Neut % (Auto) 90.8 % Lymph % (Auto) 4.6 % Woodson % (Auto) 3.5 % Eos % (Auto) 0.0 % Baso % (Auto) 0.2 % Neut # (Auto) 17.15 H (1.40-6.50) K/uL Lymph # (Auto) 0.86 L (1.20-3.40) K/uL Woodson # (Auto) 0.67 H (0.11-0.59) K/uL Eos # (Auto) 0.00 (0.00-0.50) K/uL Baso # (Auto) 0.04 (0.00-0.20) K/uL Immature Gran # (Auto) 0.17 (0.01-0.20) K/uL Cord ABG pH < 7.00 L (7.1-7.38) Cord ABG pCO2 107 H (39.1-73.5) mmHg Cord ABG pO2 < 20 (4.1-31.7) mmHg Cord ABG HCO3 TNP Cord ABG Base Excess TNP Cord ABG O2 Sat < 60.0 (<60) % Cord VBG pH < 7.00 L (7.20-7.44) Cord VBG pCO2 84 H (30.4-57.2) mmHg Cord VBG pO2 23 (14.1-43.3) mmHg Cord VBG HCO3 TNP Cord VBG Base Excess TNP Cord VBG O2 Sat < 60.0 (<68) % Blood Gas Comments A A Sodium 135 L (136-145) mmol/L Potassium 4.1 (3.5-5.1) mmol/L Chloride 105 (98-107) mmol/L Carbon Dioxide 17 L (21-32) mmol/L Anion Gap 13 H (3-11) BUN 14 (6-23) mg/dl Creatinine 1.12 (0.6-1.2) mg/dl Est Cr Clr Drug Dosing 61.2 ml/min Est GFR ( Amer) 76.9 ml/min Est GFR (Non-Af Amer) 66.3 ml/min BUN/Creatinine Ratio 12.5 (10-20) Glucose 197 H (70-99(Fasting)) mg/dl Fasting Glucose (70-99) mg/dl Uric Acid (2.6-7.2) mg/dl Calcium 8.2 L (8.6-10.3) mg/dl Magnesium (Sulf Ther) 8.0 (4.0-8.0) mg/dL Total Bilirubin 0.2 (0.2-1.0) mg/dl Direct Bilirubin (0-0.2) mg/dl AST 31 (13-39) U/L ALT 17 (7-52) U/L Alkaline Phosphatase 182 H (34-104) U/L Lactate Dehydrogenase (86-244) U/L Total Protein 5.3 L (6.0-8.3) gm/dl Albumin 2.8 L (3.4-5.0) gm/dl Globulin 2.5 (2.5-4.0) gm/dl Albumin/Globulin Ratio 1.1 (0.9-2) Ur Random Creatinine mg/dl U Random Total Protein (0-11.9) mg/dl Protein/Creatinin Ratio (0-0.2) 08/24/23 Range/Units 07:22 WBC 12.38 H (4.8-10.8) K/ul RBC 3.40 L (4.20-5.40) M/uL Hgb 9.5 L (12.0-16.0) g/dl Hct 28.7 L (37.0-47.0) % MCV 84.4 (80.0-100.0) fL MCH 27.9 (25.0-34.0) pg MCHC 33.1 (32.0-36.0) g/dL RDW Std Deviation 50.3 H (36.4-46.3) fL RDW Coeff of Crhis 16.7 H (11.5-14.5) % Plt Count 146 (130-400) K/uL MPV 11.2 (9.4-12.4) fL Immature Gran % (Auto) 0.6 % Neut % (Auto) 84.3 % Lymph % (Auto) 11.6 % Woodson % (Auto) 3.2 % Eos % (Auto) 0.1 % Baso % (Auto) 0.2 % Neut # (Auto) 10.43 H (1.40-6.50) K/uL Lymph # (Auto) 1.44 (1.20-3.40) K/uL Woodson # (Auto) 0.40 (0.11-0.59) K/uL Eos # (Auto) 0.01 (0.00-0.50) K/uL Baso # (Auto) 0.02 (0.00-0.20) K/uL Immature Gran # (Auto) 0.08 (0.01-0.20) K/uL Cord ABG pH (7.1-7.38) Cord ABG pCO2 (39.1-73.5) mmHg Cord ABG pO2 (4.1-31.7) mmHg Cord ABG HCO3 Cord ABG Base Excess Cord ABG O2 Sat (<60) % Cord VBG pH (7.20-7.44) Cord VBG pCO2 (30.4-57.2) mmHg Cord VBG pO2 (14.1-43.3) mmHg Cord VBG HCO3 Cord VBG Base Excess Cord VBG O2 Sat (<68) % Blood Gas Comments Sodium 136 (136-145) mmol/L Potassium 4.7 (3.5-5.1) mmol/L Chloride 106 (98-107) mmol/L Carbon Dioxide 26 (21-32) mmol/L Anion Gap 4 (3-11) BUN 17 (6-23) mg/dl Creatinine 0.94 (0.6-1.2) mg/dl Est Cr Clr Drug Dosing 73.0 ml/min Est GFR ( Amer) 95.0 ml/min Est GFR (Non-Af Amer) 82.0 ml/min BUN/Creatinine Ratio (10-20) Glucose (70-99(Fasting)) mg/dl Fasting Glucose 79 (70-99) mg/dl Uric Acid (2.6-7.2) mg/dl Calcium 7.7 L (8.6-10.3) mg/dl Magnesium (Sulf Ther) 3.5 L (4.0-8.0) mg/dL Total Bilirubin 0.2 (0.2-1.0) mg/dl Direct Bilirubin (0-0.2) mg/dl AST 25 (13-39) U/L ALT 14 (7-52) U/L Alkaline Phosphatase 128 H (34-104) U/L Lactate Dehydrogenase (86-244) U/L Total Protein 4.4 L (6.0-8.3) gm/dl Albumin 2.4 L (3.4-5.0) gm/dl Globulin 2.0 L (2.5-4.0) gm/dl Albumin/Globulin Ratio 1.2 (0.9-2) Ur Random Creatinine mg/dl U Random Total Protein (0-11.9) mg/dl Protein/Creatinin Ratio (0-0.2) PE: General: Alert, orientedx3, NAD CVS: S1S2 RRR Lungs; CTAB Abd: soft, NT, ND, BS+, fundus firm, below Umbilicus Incision: Clean, dry, intact Perineum intact, Lochia rubra minimal Ext; NT, no edema AP: 28 yo s/p C Section, pod# 1, s/p IV magnesium, stopped due to elevated creatinine, VSS Afebrile doing well Continue routine postop care Labs stable Encourage ambulation, PO intake All questions were answered Results & Data Vital Signs (Past 12 Hours) Vital Signs Temp Pulse Resp BP BP Pulse Ox O2 Del Method 08/24/23 03:45 36.7 C 69 16 114/74 96 Room Air 08/24/23 00:00 36.7 C 86 18 138/90 97 Room Air 08/23/23 23:30 18 98 08/23/23 22:50 144/93 H 08/23/23 22:15 18 98 08/23/23 21:00 20 97 08/23/23 20:45 163/103 H 171/103 H
[2023-08-24] MEDS: DOCUSATE SODIUM 100 MG CAP PO SCH ×2 (08:50→21:40)
[2023-08-24] MEDS: PRENATAL VITAMIN 1 TAB PO SCH (08:50)
[2023-08-24] MEDS: SIMETHICONE 80 MG CHEW PO SCH ×4 (08:50→21:40)
[2023-08-24] MEDS: FERROUS SULFATE 325 MG TAB PO SCH (08:50)
[2023-08-24] MEDS: ACETAMINOPHEN 325 MG TAB PO PRN ×3 (08:51→21:42)
[2023-08-24] MEDS: LABETALOL HCL 100 MG TAB PO SCH ×2 (08:53→21:41)
[2023-08-24] MEDS ORDERED: bisacodyL 5 MG TABEC PO SCH (20:00)
[2023-08-25] MEDS ORDERED: bisacodyL 10 MG SUPP PR PRN (06:18)
[2023-08-25] MEDS: FERROUS SULFATE 325 MG TAB PO SCH (09:25)
[2023-08-25] MEDS: PRENATAL VITAMIN 1 TAB PO SCH (09:25)
[2023-08-25] MEDS: DOCUSATE SODIUM 100 MG CAP PO SCH (09:25)
[2023-08-25] MEDS: IBUPROFEN 600 MG TAB PO PRN (09:25)
[2023-08-25] MEDS: ACETAMINOPHEN 325 MG TAB PO PRN (09:26)
[2023-08-25] MEDS: LABETALOL HCL 100 MG TAB PO SCH (09:26)
[2023-08-25] MEDS: SIMETHICONE 80 MG CHEW PO SCH (09:26)
[2023-08-25 09:45] LABS: Hematocrit (blood only) 27.9 % (37.0-47.0); Hemoglobin 9.1 g/dl (12.0-16.0)
--- NOTE | 2023-08-25 11:20 | Obstetrical Progress Note ---
Date of Service August 25, 2023 Subjective Ambulation: ambulating normally Voiding: no voiding problems Passing Gas:: Yes Diet Tolerance:: regular diet Lochia:: Small Feeding Type:: bottle feeding Current Pain Level(1-10): 0 doing well. plans for d/c today Physical Exam Constitutional WD/WN, vitals as above Gastrointestinal (Abdomen) Inspection/Auscultation: abdomen normal to inspection and + abdominal surgical incision incision c/d/i. abdomen soft and non-tender Musculoskeletal Extremities: extremities normal to inspection Skin no rashes, warm and dry Neurologic patellar DTR's 2+ bilat, sensation intact Psychiatric A+Ox3, euthymic affect Results & Data Vital Signs (Past 12 Hours) Vital Signs Temp Pulse Resp BP BP Pulse Ox O2 Del Method 08/25/23 11:15 36.9 C 77 18 137/84 151/95 H 95 08/25/23 09:30 151/95 H 08/25/23 07:30 36.9 C 77 18 137/84 95 Room Air 08/24/23 23:57 37.0 C 79 16 129/84 Room Air Laboratory Results 08/21/23 08/21/23 08/22/23 10:47 Unknown 19:26 WBC 6.55 11.66 H RBC 4.10 L 4.32 Hgb 11.5 L 12.0 Hct 34.8 L 36.5 L MCV 84.9 84.5 MCH 28.0 27.8 MCHC 33.0 32.9 RDW Std Deviation 49.3 H 49.8 H RDW Coeff of Chris 16.1 H 16.2 H Plt Count 159 164 MPV 12.2 11.5 Immature Gran % (Auto) 1.0 Neut % (Auto) 80.2 Lymph % (Auto) 14.1 Blanco % (Auto) 4.3 Eos % (Auto) 0.1 Baso % (Auto) 0.3 Neut # (Auto) 9.35 H Lymph # (Auto) 1.64 Blanco # (Auto) 0.50 Eos # (Auto) 0.01 Baso # (Auto) 0.04 Immature Gran # (Auto) 0.12 Cord ABG pH Cord ABG pCO2 Cord ABG pO2 Cord ABG HCO3 Cord ABG Base Excess Cord ABG O2 Sat Cord VBG pH Cord VBG pCO2 Cord VBG pO2 Cord VBG HCO3 Cord VBG Base Excess Cord VBG O2 Sat Blood Gas Comments Sodium 138 137 Potassium 4.1 4.3 Chloride 109 H 108 H Carbon Dioxide 21 19 L Anion Gap 8 10 BUN 9 11 Creatinine 0.70 0.84 Est Cr Clr Drug Dosing 98.0 81.6 Est GFR ( Amer) 135.7 108.9 Est GFR (Non-Af Amer) 117.1 93.9 BUN/Creatinine Ratio 12.9 13.1 Glucose 136 H 84 Fasting Glucose Uric Acid 7.3 H Calcium 8.6 8.8 Magnesium (Sulf Ther) Total Bilirubin 0.2 0.3 Direct Bilirubin 0.0 AST 21 24 ALT 13 16 Alkaline Phosphatase 192 H 203 H Lactate Dehydrogenase 179 Total Protein 5.6 L 5.6 L Albumin 3.1 L 3.0 L Globulin 2.5 2.6 Albumin/Globulin Ratio 1.2 1.2 Ur Random Creatinine 195.4 U Random Total Protein 756.2 H Protein/Creatinin Ratio 3.9 H 08/23/23 08/23/23 08/23/23 06:32 06:32 10:06 WBC 18.89 H RBC 4.28 Hgb 11.9 L Hct 36.5 L MCV 85.3 MCH 27.8 MCHC 32.6 RDW Std Deviation 51.3 H RDW Coeff of Chris 16.7 H Plt Count 155 MPV 11.9 Immature Gran % (Auto) 0.9 Neut % (Auto) 90.8 Lymph % (Auto) 4.6 Blanco % (Auto) 3.5 Eos % (Auto) 0.0 Baso % (Auto) 0.2 Neut # (Auto) 17.15 H Lymph # (Auto) 0.86 L Blanco # (Auto) 0.67 H Eos # (Auto) 0.00 Baso # (Auto) 0.04 Immature Gran # (Auto) 0.17 Cord ABG pH < 7.00 L Cord ABG pCO2 107 H Cord ABG pO2 < 20 Cord ABG HCO3 TNP Cord ABG Base Excess TNP Cord ABG O2 Sat < 60.0 Cord VBG pH < 7.00 L Cord VBG pCO2 84 H Cord VBG pO2 23 Cord VBG HCO3 TNP Cord VBG Base Excess TNP Cord VBG O2 Sat < 60.0 Blood Gas Comments A A Sodium 135 L Potassium 4.1 Chloride 105 Carbon Dioxide 17 L Anion Gap 13 H BUN 14 Creatinine 1.12 Est Cr Clr Drug Dosing 61.2 Est GFR ( Amer) 76.9 Est GFR (Non-Af Amer) 66.3 BUN/Creatinine Ratio 12.5 Glucose 197 H Fasting Glucose Uric Acid Calcium 8.2 L Magnesium (Sulf Ther) 8.0 Total Bilirubin 0.2 Direct Bilirubin AST 31 ALT 17 Alkaline Phosphatase 182 H Lactate Dehydrogenase Total Protein 5.3 L Albumin 2.8 L Globulin 2.5 Albumin/Globulin Ratio 1.1 Ur Random Creatinine U Random Total Protein Protein/Creatinin Ratio 08/24/23 08/25/23 07:22 09:29 WBC 12.38 H RBC 3.40 L Hgb 9.5 L 9.1 L Hct 28.7 L 27.9 L MCV 84.4 MCH 27.9 MCHC 33.1 RDW Std Deviation 50.3 H RDW Coeff of Chris 16.7 H Plt Count 146 MPV 11.2 Immature Gran % (Auto) 0.6 Neut % (Auto) 84.3 Lymph % (Auto) 11.6 Blanco % (Auto) 3.2 Eos % (Auto) 0.1 Baso % (Auto) 0.2 Neut # (Auto) 10.43 H Lymph # (Auto) 1.44 Blanco # (Auto) 0.40 Eos # (Auto) 0.01 Baso # (Auto) 0.02 Immature Gran # (Auto) 0.08 Cord ABG pH Cord ABG pCO2 Cord ABG pO2 Cord ABG HCO3 Cord ABG Base Excess Cord ABG O2 Sat Cord VBG pH Cord VBG pCO2 Cord VBG pO2 Cord VBG HCO3 Cord VBG Base Excess Cord VBG O2 Sat Blood Gas Comments Sodium 136 Potassium 4.7 Chloride 106 Carbon Dioxide 26 Anion Gap 4 BUN 17 Creatinine 0.94 Est Cr Clr Drug Dosing 73.0 Est GFR ( Amer) 95.0 Est GFR (Non-Af Amer) 82.0 BUN/Creatinine Ratio Glucose Fasting Glucose 79 Uric Acid Calcium 7.7 L Magnesium (Sulf Ther) 3.5 L Total Bilirubin 0.2 Direct Bilirubin AST 25 ALT 14 Alkaline Phosphatase 128 H Lactate Dehydrogenase Total Protein 4.4 L Albumin 2.4 L Globulin 2.0 L Albumin/Globulin Ratio 1.2 Ur Random Creatinine U Random Total Protein Protein/Creatinin Ratio
== END 2023-08-25 11:45 | disposition home or self-care (01) | DRG 788 ==
LOC: OPB 09:50 → 4S1 09:53 → 4E2 08-23 18:30

== ENCOUNTER 2025-01-23 01:48 | Inpatient (IN) ==
[2025-01-23] MEDS ORDERED: LACTATED RINGER'S 1,000 ML IV PRN (01:58)
[2025-01-23] MEDS ORDERED: VANCOMYCIN HCL 1,000 MG/270 ML BAG IV STA (01:58)
[2025-01-23] MEDS ORDERED: VANCOMYCIN CONSULT ACTIVE PRN (01:58)
[2025-01-23] MEDS: OXYTOCIN 30 UNITS/NSS 30 UNITS/500 ML BAG IV PRN (02:23)
[2025-01-23 02:25] LABS: Hematocrit (blood only) 38.1 % (37.0-47.0); Mean Corpuscular Hemoglobin 26.4 pg (25.0-34.0); Mean Corpuscular Hgb Conc 31.5 g/dL (32.0-36.0); Mean Corpuscular Volume 83.7 fL (80.0-100.0); Mean Platelet Volume 11.8 fL (9.4-12.4); Platelet Count 180 K/uL (130-400); RDW Standard Deviation 51.5 fL (36.4-46.3); Red Blood Count 4.55 M/uL (4.20-5.40); White Blood Count 11.63 K/ul (4.8-10.8)
[2025-01-23] MEDS: LIDOCAINE 1% LOCAL 20 ML VIAL INFIL PRN (02:44)
[2025-01-23] MEDS ORDERED: HYDROCORTISONE ACETATE 25 MG SUPP PR PRN (02:44)
[2025-01-23] MEDS ORDERED: OXYTOCIN 30 UNITS/NSS 30 UNITS/500 ML BAG IV PRN (02:44)
--- NOTE | 2025-01-23 02:49 | Delivery Summary ---
Vaginal Delivery Summary Date of Service January 23, 2025 Vaginal Delivery Summary 29 f P1001 at 39 weeks presents to L&D via ambulance with SROM clear fluid and onset of labor. Prior delivered by for OP presentations. Patient pushed and delivered spontaneously live male with delayed cord clamping and Apgars 8/9 weight pending. Cord blood obtained followed by spontaneous delivery of intact placenta. Second degree laceration repaired with 3/0 Vicryl suture. QBL pending. Final sponge, needle and instrument counts are correct. Mom and baby stable.
[2025-01-23] MEDS: IBUPROFEN 600 MG TAB PO PRN (03:03)
--- OUTSIDE RECORDS SUMMARY | 2025-01-23 06:02 | External Medical Summary | Summary of Care ---
Author Name Unknown Organization [facility] Address [address] [place] [address] Phone [phone] Care Team Providers Care Montessori Paraprofessional Name Role Phone Unavailable Primary Care Provider Unavailabl e Reason for Visit * Reason Onset Date Comments Follow Up 01/13/2025 Encounter Details Date Type Department Care Team ([facility] st Contact Info) Description 01/13/2025 Telephone Gynecology/Obstetrics [facility] [address] [place] [address] BackerBrie CRNP [address] [place] [address] Follow Up Allergies Active Allergy Reactions Criticality Noted Date Comments Amoxicillin Rash 04/22/2008 Amoxil documented as of this encounter (statuses as of 01/22/2025) Medications Vitamin 27-0.8 MG Oral TabletIndication s:Routine follow-up Take 1 Tablet by mouth every evening. 90 Tablet 3 10/08/2023 Active documented as of this encounter (statuses as of 01/22/2025) Active Problems Problem Noted Date Diagnosed Date High-risk 08/26/2024 Short interval between pregn ancies complicating , antepartum 07/03/2024 Overview (08/26/2024): 1st baby 08/2023 Hx of section 07/03/2024 Overview (08/26/2024): Desires TOLAC Hx of preeclampsia, prior , currently p regnant 07/03/2024 History of loop electrosurgi louie excision procedure (LEEP) affecting care of mother, antepartum 01/31/2023 Overview (01/31/2023): LEEP done 2019 Assessment & Plan (02/01/2023 2:30 PM EDT): 1. Discussed that the history of a single Loop Electrosurgical Excision Procedure has NOT been shown to be associated with increased risk for incompetent cervix or delivery. We do NOT recommend baseline transvaginal cervical length measurements for patients with this history. History of molar 01/16/2023 Overview (07/03/2024): G1:Hx molar , didn't follow hcg to zero. Became during surveillance Assessment & Plan (04/05/2023 3:19 PM EDT): No evidence of co-existing molar gestation at this time. Reviewed with patient that surveillance for gestational trophoblastic disease is not possible during using B-hcg, so will need follow-up . Migraine variant 02/22/2021 Depression with anxiety 07/01/2020 Estimated Date of Delivery Comme nts Yes 01/25/2025 Based on last me nstrual period of 04/20/2024 documented as of this encounter (statuses as of 01/22/2025) Resolved Problems Problem Noted Date Diagnosed Date Resolved Date Pre-eclampsia in third trimester 08/22/2023 08/30/2023 Pyelectasis of fetus on ultrasound 04/05/2023 08/30/2023 Assessment & Plan (08/02/2023 4:01 PM EDT): Left UTD persists. Please notify pediatrics at delivery. Assessment & Plan (04/05/2023 3:20 PM EDT): CONSIDERATIONS: Reviewed that urinary tract dilation is [...] 32-36 weeks gestation. We recommend alerting the cutch cleaner providing care of this finding if it persists. , supervision, high-risk 02/01/2023 08/30/2023 Family history of seizure disorder 01/31/2023 08/30/2023 Overview (02/01/2023): Patient reports FOB has epilepsy, as does his brother Genetics referral: patient and partner accept and referral placed NIPT: OB provider to order Assessment & Plan (04/05/2023 2:08 PM EDT): Low risk NIPT and msAFP appreciated. STD (sexually transmitted di sease) complicating , antepartum 01/31/202308/30 Overview (08/08/2023): Positive for chlamydia and gonorrhea at first Ob visit 01/15/2023 Patient treated 01/16/2023 Neg GARRETT 02/15/23; neg at 36 wks Assessment & Plan (02/01/2023 2:28 PM EDT): Partner has not yet been treated Uninsured Partner referred to Family Planning for free STD testing and treatment Blighted ovum 07/16/2022 05/10/2023 IUD check up 04/13/2017 07/01/2020 Adolescent Acne 01/03/2008 07/01/2020 documented as of this encounter (statuses as of 01/22/2025) Immunizations Name Administration Dates Next Due TDAP (age 10 and older)(Boostrix) 06/15/2023, TDAP, Age 7 and older, IM (Adacel) 11/03/2024 documented as of this encounter Social History [...] the money to buy more. Never true 08/12/20 24 Within the past 12 months, t he food you bought just didn't last and you didn't have money to get more. Never true 08/12/2024 [place] Depression Scale Answer Date Recorded [place] Depression Scale Total 5 12/02/2024 The thought of harming myself has occurred to me . Never 12/02/2024 Childcare Answer Date Recorded Do you feel overwhelmed with taking care of a child, family member or friend? No 08/12/2024 Does your family need help f inding childcare? (Household - for ages 0-17 years) Not on file 08/12/2024 Clothing Answer Date Recorded Have you been unable to get clothing when it was really needed? No 08/12/2024 Is your family able to get c lothes or diapers when needed? (Household - for ages 0-17 years) Not on file 08/12/2024 Personal Safety Answer Date Recorded Do you feel unsafe or have concerns for your saf ety? No 08/12/2024 Do you have concerns for you r family's safety? (Household - for ages 0-17 years) Not on file 08/12/2024 Utilities Answer Date Recorded Do you have trouble paying y our heating, water, or electric bill? No 08/12/2024 Is your family able to pay t he heat, water, or electric bill? (Household - for ages 0-17 years) Not on file 08/12/2024 Does your family have access to good internet? (Household - for ages 0-17 years) Not on file 08/12/2024 Employment Status Answer Date Recorded Are you unemployed or without regular income? No 08/12/2024 Does the household have a re gular source of income? (Household - for ages 0-17 years) Not on file 08/12/2024 Social Connections Answer Date Recorded How often do you feel lonely or isolated from th ose around you? Rarely 08/12/2024 Financial Resource Strain Answer Date R ecorded Do you have any trouble payi ng for your medications, or do you think you might in the future? No 08/12/2024 Does your family have troubl e paying for medicine? (Household - for ages 0-17 years) Not on file 08/12/2024 Transportation Needs Answer Date Record ed Do you have trouble getting a ride to medical visits or work? (Adult - for ages 18 years and over) Not on file 08/12/2024 Does your family have a hard time getting a ride to doctors visits? (Household - for ages 0-17 years) Not on file 08/12/2024 Has lack of transportation k ept you from medical appointments, meetings, work, or from getting things needed for daily living? Check all that apply. No 08/12/2024 Do you (or your family) have trouble finding or paying for a ride (transportation)? (Household - for ages 0-17 years) Not on file 08/12/2024 Housing Stability Answer Date Recorded Do you currently live in a s helter or have no steady place to sleep at night? No 08/12/2024 Do you think you are at risk of becoming homeless? (Adult - for ages 18 years and over) Not on file 08/12/2024 Does your family worry about paying for your home or becoming homeless? (Household - for ages 0-17 years) Not on file 1 10/12/2023 Are you homeless or worried that you might be in the future? No 08/12/2024 Are you (or your family) cal eless or worried that you might be in the future? (Household - for ages 0-17 years) Not on file Food Insecurity Answer Date Recorded Do you need food for this week? No 08/12/2024 Are you able to get enough f ood for your family? (Household - for ages 0-17 years) Not on file 08/12/2024 Does your family need food t his week? (Household - for ages 0-17 years) Not on file 08/12/2024 Do you always have enough fo od for your family? (Household - for ages 0-17 years) Not on file 08/12/2024 Food Insecurity Answer Date Recorded Within the past 12 months, y ou worried that your food would run out before you got the money to buy more. Never true 08/12/20 24 Within the past 12 months, t he food you bought just didn't last and you didn't have money to get more. Never true 08/12/2024 Do you need food for this week? No 08/12/2024 Estimated Date of Delivery Comme nts Yes 01/25/2025 Based on last me nstrual period of 04/20/2024 Sex and Gender Information Value Date Recorded Sex Assigned at Female 07/01/2021 1:43 PM EDT Legal Sex Female 6:11 AM EST Gender Identity Female 07/01/2021 1:43 PM EDT Sexual Orientation Straight 07/01/2021 1: 43 PM EDT Occupation Industry Job Start Date Job End Date Not on file Not on file Not on file Not on file documented as of this encounter Miscellaneous Notes * Telephone Encounter - Nely Caldwell OSA - 01/22/2025 11:06 AM EDT Pt scheduled 01/30 for c/section w/ Dr Sauer. Pt is aware of preop d/t. * Telephone Encounter - Brie Teresa CRNP - 01/13/2025 1:53 PM EDT Pt desires a repeat C/S at 40+ weeks if labor does not start spontaneously. Estimated Date of Delivery: 01/25/25. MC Elizondo documented in this encounter Plan of Treatment Upcoming Encounters Date Type Department Care Team (Late st Contact Info) Description 01/26/2025 8:45 AM EDT Office Visit Gynecology/Obstetrics [facility] [address] [address] Rafat Wilburn MD [address] [place] [address] 02/06/2025 2:30 PM EDT Office Visit Gynecology/Obstetrics [facility] [address] [place] [address] Clary Us CRNP [address] [place] [address] Health Maintenance Due Date Last Done Comments Depression Monitoring 2006 Hepatitis B Vaccine (1 of 3 - 19+ 3-dose series) 2013 Lipid Panel 2014 COVID-19 Vaccine ( season) 2024 Influenza Vaccine (FLU shot) (Season Ended) 2025 Pap Smear 07/03/2027 07/03/2024, 12/30, 01/19/2021, Additional history exists Cervical Cancer Screening 07/03/2029 HPV/Co-Test 07/03/2029 07/03/2024, 01/15/2023 DTap/Tdap Vaccines (4 - Td or Tdap) 11/03/2034 11/03/2024, 06/15/2023, 05/26/2019 HPV (Gardasil) Vaccine Aged Out No lo nger eligible based on patient's age to complete this topic MENINGOCOCCAL (MENACTRA/MENVEO) Aged Out No longer eligible based on patient's age to complete this topic Meningitis B Vaccine (Bexsero/Trumemba) Aged Out No longer eligible based on patient's age to complete this topic Pneumococcal Vaccine: Pediatrics (0 to 5 Years) and At-Risk Patients (6 to 18 Years and 19+ Years) Aged Out No longer eligib le based on patient's age to complete this topic documented as of this encounter Goals Goal Patient Goal Type Associated Problems Recent Progress Patient-Stated? Author Reminders Care Plan OB Reminders No Lata, Provider documented as of this encounter Medical Devices Not on filedocumented as of this encounter Additional Health Concerns Active Problems Noted Date Diagnosed Date OB Reminders 11/02/2024 documented as of this encounter Advance Directives * Full Code (Latest Code Status on File) Date Activated Date Inactivated Comments 07/18/2022 11:53 AM 07/18/2022 5:18 PM This orde r reflects the patients wishes and were consensually agreed upon. Question Answer Comments Discussion of Advance Directives occurred with: Patient
--- OUTSIDE RECORDS SUMMARY | 2025-01-23 06:03 | External Medical Summary | Summary of Care ---
Author Name Unknown Organization [facility] Address [address] [place] [address] Phone [phone] Care Team Providers Care Expansion Joint Builder Name Role Phone Unavailable Primary Care Provider Unavailabl e Reason for Visit * Reason Comments Return Visit Encounter Details Date Type Department Care Team ([facility] st Contact Info) Description 01/06/2025 1:45 PM EDT Office Visit Gynecology/Obstetri julian [facility] [address] [place] [address] Brie Teresa CRNP [address] [place] [address] High-risk in third trimester*; History of molar ; History of loop electrosurgical excision procedure (LEEP) affecting care of mother, antepartum; Short interval between pregnancies complicating , antepartum; Hx of section; Hx of preeclampsia, prior , currently Allergies Active Allergy Reactions Criticality Noted Date Comments Amoxicillin Rash 04/22/2008 Amoxil documented as of this encounter (statuses as of 01/06/2025) Medications Vitamin 27-0.8 MG Oral TabletIndication s:Routine follow-up Take 1 Tablet by mouth every evening. 90 Tablet 3 10/08/2023 Active Aspirin 81 MG Oral Tablet Chewable Take 1 Tablet by mouth in the morning. 07/29/2024 Active documented as of this encounter (statuses as of 01/06/2025) Active Problems Problem Noted Date Diagnosed Date [...] as of this encounter (statuses as of 01/06/2025) Resolved Problems Problem Noted Date Diagnosed Date [...] 32-36 weeks gestation. We recommend alerting the traffic personnel supervisor providing care of this finding if [...] as of this encounter (statuses as of 01/06/2025) Immunizations Name Administration Dates Next Due TDAP [...] money to get more. Never true 08/12/2024 [place] Depression Scale Answer Date Recorded [place] Depression Scale Total 5 12/02/2024 The thought [...] Sign Reading Time Taken Comments Blood Pressure 102/60 01/06/2025 1:45 PM EDT Pulse - - Temperature - - Respiratory Rate - - Oxygen Saturation - - Inhaled Oxygen Concentration - - Weight 58.1 kg (128 lb) 01/06/2025 1:45 PM EDT Height - - Body Mass Index 25 11/18/2024 10:26 AM EST documented in this encounter Progress Notes * Brie Teresa CRNP - 01/06/2025 1:58 PM EDT 37w2d Baby is active. Was having ctx on Sunday night, now just BH ctx (4 per hr). Ruled out ROM on L&D, was advised to have a cervical exam today. Today denies LOF or bleeding. Cervix is posterior, closed. 1 week return; call sooner with regular/painful ctx, concern for LOF, bleeding, decreased FM. Equipment Service Lead Documentation Provider requested bisque grader. Name of bisque grader: MC Purvis * Samanta Odonnell LPN - 01/06/2025 1:48 PM EDT 37w2d Denies vaginal bleeding/rom + movement Was seen at L&D on Sunday- provider recommended she have cervical check today documented in this encounter Plan of Treatment Upcoming Encounters Date Type Department Care Team (Late st Contact Info) Description 01/13/2025 1:45 PM EDT Office Visit Gynecology/Obstetrics [facility] [address] [place] [address] Brie Teresa CRNP [address] [place] [address] 01/20/2025 1:30 PM EDT Office Visit Gynecology/Obstetrics [facility] [address] [place] [address] Clary Us CRNP [address] [place] [address] Health Maintenance Due Date Last Done Comments [...] Author Reminders Care Plan OB Reminders No Aurelianot, Provider documented as of this encounter Medical Devices Not on filedocumented as of this encounter Visit Diagnoses Diagnosis History of loop electrosurgical excision procedure (LEEP) of cervix affecting , antepartum- Primary STD (sexually transmitted disease) complicating , antepartum Other antepartum maternal venereal disease Family history of seizure disorder Family history of other neurological diseases Supervision of high risk in first trimester Unspecified high-risk History of loop electrosurgical excision procedure (LEEP) of cervix affecting , antepartum- Primary Encounter for anatomic survey Family history of seizure disorder Family history of other neurological diseases Molar Other abnormal products of conception Pyelectasis of fetus on ultrasound Abnormal findings on screening High-risk in third trimester- Primary History of molar History of loop electrosurgical excision procedure (LEEP) affecting care of mother, antepartum Short interval between pregnancies complicating , antepartum Supervision of other high-risk Hx of section Other postprocedural status Hx of preeclampsia, prior , currently with other poor obstetric history documented in this encounter Additional Health Concerns Active Problems [...]
--- OUTSIDE RECORDS SUMMARY | 2025-01-23 06:03 | External Medical Summary | Summary of Care ---
Author Name Unknown Organization [facility] Address [address] [place] [address] Phone [phone] Care Team Providers Care Pc Installation Engineer Name Role Phone Unavailable Primary Care Provider Unavailabl e Reason for Visit * Reason Onset Date Comments Follow Up 01/13/2025 Encounter Details Date Type Department Care Team ([facility] st Contact Info) Description 01/13/2025 Telephone Gynecology/Obstetrics [facility] [address] [place] [address] BackerBrie CRNP [address] [place] [address] Follow Up Allergies Active Allergy Reactions Criticality Noted Date Comments Amoxicillin Rash 04/22/2008 Amoxil documented as of this encounter (statuses as of 01/21/2025) Medications Vitamin 27-0.8 MG Oral TabletIndication s:Routine follow-up Take 1 Tablet by mouth every evening. 90 Tablet 3 10/08/2023 Active documented as of this encounter (statuses as of 01/21/2025) Active Problems Problem Noted Date Diagnosed Date [...] as of this encounter (statuses as of 01/21/2025) Resolved Problems Problem Noted Date Diagnosed Date [...] 32-36 weeks gestation. We recommend alerting the health and physical education teacher providing care of this finding if it [...] as of this encounter (statuses as of 01/21/2025) Immunizations Name Administration Dates Next Due TDAP [...] money to get more. Never true 08/12/2024 [place] Depression Scale Answer Date Recorded [place] Depression Scale Total 5 12/02/2024 The thought [...] encounter Miscellaneous Notes * Telephone Encounter - Brie Teresa CRNP - 01/13/2025 1:53 PM EDT Pt desires a repeat C/S at 40+ weeks if labor does not start spontaneously. Estimated Date of Delivery: 01/25/25. MC Elizondo documented in this encounter Plan of Treatment Upcoming Encounters Date Type Department Care Team (Late st Contact Info) Description 01/27/2025 1:45 PM EDT Office Visit Gynecology/Obstetrics [facility] [address] [place] [address] Brie Teresa CRNP [address] [place] [address] 02/06/2025 2:30 PM EDT Office Visit Gynecology/Obstetrics [facility] [address] [place] [address] Clary Us CRNP [address] [place] [address] Health Maintenance Due Date Last Done Comments Depression Monitoring 2006 Hepatitis B Vaccine (1 of 3 - 19+ 3-dose series) 2013 Lipid Panel 2014 COVID-19 Vaccine (1 - season) 2024 Influenza Vaccine (FLU shot) (Season [...] Author Reminders Care Plan OB Reminders No Lata Provider documented as of this encounter Medical [...]
--- OUTSIDE RECORDS SUMMARY | 2025-01-23 06:03 | External Medical Summary | Summary of Care ---
Author Name Unknown Organization [facility] Address [address] [place] [address] Phone [phone] Care Team Providers [facility] Name Role Phone Unavailable Primary Care Provider Unavailabl e Encounter Details Date Type Department Care Team (Late st Contact Info) Description 01/04/2025 Result Scan Unspecified Department <No scans attached> Allergies Active Allergy Reactions Criticality Noted Date Comments Amoxicillin Rash 04/22/2008 Amoxil documented as of this encounter (statuses as of 01/05/2025) Medications Vitamin 27-0.8 MG Oral TabletIndication s:Routine follow-up Take 1 Tablet by mouth every evening. 90 Tablet 3 10/08/2023 Active Aspirin 81 MG Oral Tablet Chewable Take 1 Tablet by mouth in the morning. 07/29/2024 Active documented as of this encounter (statuses as of 01/05/2025) Active Problems Problem Noted Date Diagnosed Date [...] as of this encounter (statuses as of 01/05/2025) Resolved Problems Problem Noted Date Diagnosed Date [...] 32-36 weeks gestation. We recommend alerting the digital account executive providing care of this finding if it [...] as of this encounter (statuses as of 01/05/2025) Immunizations Name Administration Dates Next Due TDAP [...] money to get more. Never true 08/12/2024 [place] Depression Scale Answer Date Recorded [place] Depression Scale Total 5 12/02/2024 The thought [...] Care Team (Late st Contact Info) Description 01/06/2025 1:45 PM EDT [facility] [place] [address] Brie Teresa CRNP [address] [place] [address] 01/13/2025 1:45 PM EDT [facility] [place] [address] Brie Teresa CRNP [address] [place] [address] 01/20/2025 1:30 PM EDT Office Visit Gynecology/Obstetrics [facility] [address] [place] [address] Clary Us CRNP [address] [place] [address] Health Maintenance Due Date Last Done Comments [...] Author Reminders Care Plan OB Reminders No Mychart, Provider documented as of this encounter Medical Devices Not on filedocumented as of this encounter Procedures Procedure Name Priority Date/Time Associated Diagnosis Comments OUTSIDE LAB RESULTS 01/04/2025 documented in this encounter Results * OUTSIDE LAB RESULTS (01/04/2025) 01/04/2025 No Physician Data Unknown LABORATORY Final Result documented in this encounter Additional Health Concerns [...]
--- OUTSIDE RECORDS SUMMARY | 2025-01-23 06:03 | External Medical Summary | Summary of Care ---
Author Name Unknown Organization [facility] Address [address] [place] [address] Phone [phone] Care Team Providers Care Teacher Counselor Name Role Phone Unavailable Primary Care Provider Unavailabl e Reason for Visit * Reason Comments Return Visit Encounter Details Date Type Department Care Team (Latest Contact Info) Description 01/20/2025 1:30 PM EDT Office Visit Gynecology/Obstetri julian [place] [address] [place] [address] Clary Us CRNP [address] [facility] [address] History of molar *; History of loop electrosurgical excision procedure (LEEP) affecting care of mother, antepartum; Short interval between pregnancies complicating , antepartum; Hx of section; Hx of preeclampsia, prior , currently ; High-risk in third trimester Allergies Active Allergy Reactions Criticality Noted Date Comments Amoxicillin Rash 04/22/2008 Amoxil documented as of this encounter (statuses as of 01/20/2025) Medications Vitamin 27-0.8 MG Oral TabletIndication s:Routine follow-up Take 1 Tablet by mouth every evening. 90 Tablet 3 10/08/2023 Active documented as of this encounter (statuses as of 01/20/2025) Active Problems Problem Noted Date Diagnosed Date [...] as of this encounter (statuses as of 01/20/2025) Resolved Problems Problem Noted Date Diagnosed Date [...] 32-36 weeks gestation. We recommend alerting the suction plate roller hand providing care of this finding if it [...] as of this encounter (statuses as of 01/20/2025) Immunizations Name Administration Dates Next Due TDAP [...] money to get more. Never true 08/12/2024 [place] Depression Scale Answer Date Recorded [place] Depression Scale Total 5 12/02/2024 The thought [...] Sign Reading Time Taken Comments Blood Pressure 110/68 01/20/2025 1:08 PM EDT Pulse - - Temperature - - Respiratory Rate - - Oxygen Saturation - - Inhaled Oxygen Concentration - - Weight 59 kg (130 lb) 01/20/2025 1:08 PM EDT Height - - Body Mass Index 25.39 01/13/2025 1:41 PM EDT documented in this encounter Progress Notes * Clary Us CRNP - 01/20/2025 1:18 PM EDT 39w2d No concerns, just tired. Hasn't heard about scheduling c/s yet. stripper machine operator to call [facility] and get scheduled, then notify pt. Baby is very active. Occasional BH contractions, denies bleeding, LOF. Asking for cervical check. [employer] Applications Analyst Documentation Provider requested napkin band wrapper. Name of napkin band wrapper: [facility] [place] * Nayely Bethea CMA - 01/20/2025 1:08 PM EDT 39w2d + contractions, not consistent Requesting cervical check documented in this encounter Plan of Treatment Upcoming Encounters Date Type Department Care Team (Late st Contact Info) Description 01/27/2025 1:45 PM EDT Office Visit Gynecology/Obstetrics [facility] [address] [place] [address] Brie Teresa CRNP [address] [place] [address] 02/06/2025 2:30 PM EDT Office Visit Gynecology/Obstetrics [facility] [address] [place] [address] Clary Us CRNP [address] [place] [address] Health Maintenance Due Date Last Done Comments Depression Monitoring 2006 Hepatitis B Vaccine (1 of 3 - 19+ 3-dose series) 2013 Lipid Panel 2014 COVID-19 Vaccine ( - season) 2024 Influenza Vaccine (FLU shot) [...] ultrasound Abnormal findings on screening History of molar - Primary History of loop electrosurgical excision procedure (LEEP) affecting care of mother, antepartum Short interval between pregnancies complicating , antepartum Supervision of other high-risk Hx of section Other postprocedural status Hx of preeclampsia, prior , currently with other poor obstetric history High-risk in third trimester documented in this encounter Additional Health Concerns [...]
[2025-01-23] MEDS: DOCUSATE SODIUM 100 MG CAP PO SCH (07:45)
[2025-01-23] MEDS: PRENATAL VITAMIN 1 TAB PO SCH (07:45)
[2025-01-23] MEDS: FERROUS SULFATE 325 MG TAB PO SCH (07:45)
[2025-01-23] MEDS: BENZOCAINE 20% SPRY 85 APPLN/85 GM CAN EXT PRN (11:39)
[2025-01-23] MEDS ORDERED: VANCOMYCIN HCL 1,000 MG/270 ML BAG IV PRN (12:58)
[2025-01-23] MEDS: ACETAMINOPHEN 325 MG TAB PO PRN (18:12)
[2025-01-24 07:39] LABS: Hematocrit (blood only) 31.3 % (37.0-47.0); Hemoglobin 10.1 g/dl (12.0-16.0); Mean Corpuscular Hemoglobin 26.3 pg (25.0-34.0); Mean Corpuscular Hgb Conc 32.3 g/dL (32.0-36.0); Mean Corpuscular Volume 81.5 fL (80.0-100.0); Mean Platelet Volume 11.4 fL (9.4-12.4); Platelet Count 110 K/uL (130-400); RDW Coefficient of Variation 17.1 % (11.5-14.5); RDW Standard Deviation 50.4 fL (36.4-46.3); Red Blood Count 3.84 M/uL (4.20-5.40); White Blood Count 8.15 K/ul (4.8-10.8)
[2025-01-24] MEDS: DIPHTHER/TETAN/PERTUS Vaccine (Tdap, Adol/Adult) 0.5mL IM ONE (08:43)
--- NOTE | 2025-01-24 08:43 | Obstetrical Progress Note ---
Date of Service January 24, 2025 Assessment & Plan Admission and Anticipated Discharge Date Admission Date: January 23, 2025 Subjective Patient is seen and examined. She feels well, no complaints. Ambulating without dizziness Voiding without difficulty Tolerating regular diet with out N&V Bleeding is minimal No MERCER/ Change in vision/ fever/ chills/ CP/ SOB/ N&V/ Leg pain Breast and bottle feeding without problems Vital Signs Temp Pulse Resp BP O2 Del Method 01/24/25 00:30 37.6 C H 61 18 120/76 Room Air 01/23/25 19:45 36.7 C 69 16 109/68 Room Air 01/23/25 14:44 36.8 C 70 16 104/69 Room Air 01/23/25 11:35 36.7 C 61 16 102/64 Room Air Lab Results 01/23/25 01/24/25 Range/Units 02:15 06:58 WBC 11.63 H 8.15 (4.8-10.8) K/ul RBC 4.55 3.84 L (4.20-5.40) M/uL Hgb 12.0 10.1 L (12.0-16.0) g/dl Hct 38.1 31.3 L (37.0-47.0) % MCV 83.7 81.5 (80.0-100.0) fL MCH 26.4 26.3 (25.0-34.0) pg MCHC 31.5 L 32.3 (32.0-36.0) g/dL RDW Std Deviation 51.5 H 50.4 H (36.4-46.3) fL RDW Coeff of Chris 17.0 H 17.1 H (11.5-14.5) % Plt Count 180 110 L (130-400) K/uL MPV 11.8 11.4 (9.4-12.4) fL Treponema pallidum Ab Negative (Negative) Blood Type A Positive Antibody Screen NEGATIVE PE: General: Alert, orientedx3, NAD Abd: soft, NT, fundus firm, below Umbilicus Perineum intact, Lochia rubra minimal Ext; NT, no edema AP: 29 yo s/p , ppd# 1 VSS Afebrile doing well, desires d/c today Continue routine care Low platelets, h/o preeclampsia, BP's WNL during and since delivery Will check CMP All questions were answered D/C home after labs Results & Data Vital Signs (Past 12 Hours) Vital Signs Temp Pulse Resp BP O2 Del Method 01/24/25 00:30 37.6 C H 61 18 120/76 Room Air
[2025-01-24 08:55] LABS: Albumin Globulin Ratio 1.1 (0.9-2); Albumin Level 3.1 gm/dl (3.4-5.0); BUN Creatinine Ratio 11.1 (10-20); Bilirubin,Total 0.3 mg/dl (0.2-1.0); Calcium 8.5 mg/dl (8.6-10.3); Creatinine Clr Calc Pharmacy 104.9 ml/min; Globulin 2.7 gm/dl (2.5-4.0); Potassium 3.9 mmol/L (3.5-5.1); Total Protein 5.8 gm/dl (6.0-8.3)
[2025-01-24 10:52] VITALS: BP 137/88; RESP 16; TEMP 96.8; O2SAT 100
[2025-01-24 10:58] VITALS: PULSE 61
[2025-01-24] MEDS ORDERED: bisacodyL 5 MG TABEC PO SCH (20:00)
[2025-01-25] MEDS ORDERED: bisacodyL 10 MG SUPP PR PRN (02:44)
== END 2025-01-24 12:00 | disposition home health service (06) | DRG 807 ==
LOC: OPB 01:48 → 4S1 01:50 → 4E2 05:18